=== PATIENT | male | born 1975 | race Caucasian/White ===

== ENCOUNTER 2017-10-31 18:53 | Emergency (ER) | payer OTHER ==
[2017-10-31 20:28] LABS: BASO # 0.1 10^3/uL (0.0-0.2); BASO % 0.4 % (0.0-1.0); EOS # 0.1 10^3/uL (0.0-0.50); EOS % 0.9 % (0.0-3.0); HEMATOCRIT 39.8 % (42.0-52.0); HEMOGLOBIN 13.5 g/dl (14.0-18.0); IMMATURE GRANULOCYTE % 1.3 % (0-3.0); LYMPH # 1.7 10^3/uL (1.5-4.5); MEAN CORPUSCULAR HEMOGLOBIN 31.6 pg (27.0-33.0); MEAN CORPUSCULAR HGB CONC 33.9 g/dl (32.0-36.5); MEAN CORPUSCULAR VOLUME 93.2 fl (80.0-96.0); MONO # 1.3 10^3/uL (0.0-0.8); MONO % 9.3 % (0.0-5.0); NEUTROPHILS # 10.7 10^3/uL (1.8-7.7); NEUTROPHILS % 76.1 % (36.0-66.0); PLATELET COUNT, AUTOMATED 251 10^3/uL (150-450); RED BLOOD COUNT 4.27 10^6/uL (4.30-6.10); RED CELL DISTRIBUTION WIDTH 13.1 % (11.5-14.5); WHITE BLOOD COUNT 14.1 10^3/uL (4.0-10.0)
[2017-10-31 20:56] LABS: INR 0.88
[2017-10-31 20:57] LABS: ANION GAP 11 MEQ/L (8-16); BLOOD UREA NITROGEN 48 MG/DL (7-18); CALCIUM LEVEL 9.1 MG/DL (8.5-10.1); CARBON DIOXIDE LEVEL 24 MEQ/L (21-32); CHLORIDE LEVEL 103 MEQ/L (98-107); CREATININE FOR GFR 1.29 MG/DL (0.70-1.30); GLOMERULAR FILTRATION RATE > 60.0 (>60); GLUCOSE, FASTING 278 MG/DL (70-100); PARTIAL THROMBOPLASTIN TIME 26.8 SECONDS (26.8-37.9); POTASSIUM SERUM 3.9 MEQ/L (3.5-5.1); SODIUM LEVEL 138 MEQ/L (136-145)
[2017-10-31] MEDS: CLINDAMYCIN 150 MG CAP PO (22:15)
[2017-10-31] MEDS: NORCO 5/325MG TABLET (BULK FOR ED) PO (22:15)
== END 2017-10-31 23:13 | disposition home or self-care (01) ==
LOC: M ED 18:53
DX: I73.9 Peripheral vascular disease, unspecified (principal); I83.11 Varicose veins of right lower extremity with inflammation; E11.9 Type 2 diabetes mellitus without complications; J45.909 Unspecified asthma, uncomplicated; I11.0 Hypertensive heart disease with heart failure; E78.9 Disorder of lipoprotein metabolism, unspecified; I50.9 Heart failure, unspecified; F17.210 Nicotine dependence, cigarettes, uncomplicated; Z79.899 Other long term (current) drug therapy; Z79.82 Long term (current) use of aspirin; Z79.4 Long term (current) use of insulin
CPT/HCPCS: 73610

== ENCOUNTER 2017-11-08 02:16 | Emergency (ER) | payer OTHER ==
[2017-11-08 03:07] LABS: BASO # 0.1 10^3/uL (0.0-0.2); BASO % 0.5 % (0.0-1.0); EOS # 0.1 10^3/uL (0.0-0.50); EOS % 0.8 % (0.0-3.0); HEMATOCRIT 37.3 % (42.0-52.0); HEMOGLOBIN 12.9 g/dl (14.0-18.0); IMMATURE GRANULOCYTE % 1.2 % (0-3.0); LYMPH # 1.6 10^3/uL (1.5-4.5); LYMPH % 10.6 % (24.0-44.0); MEAN CORPUSCULAR HEMOGLOBIN 32.4 pg (27.0-33.0); MEAN CORPUSCULAR HGB CONC 34.6 g/dl (32.0-36.5); MEAN CORPUSCULAR VOLUME 93.7 fl (80.0-96.0); MONO # 1.4 10^3/uL (0.0-0.8); MONO % 8.7 % (0.0-5.0); NEUTROPHILS # 12.2 10^3/uL (1.8-7.7); NEUTROPHILS % 78.2 % (36.0-66.0); PLATELET COUNT, AUTOMATED 259 10^3/uL (150-450); RED BLOOD COUNT 3.98 10^6/uL (4.30-6.10); RED CELL DISTRIBUTION WIDTH 13.1 % (11.5-14.5); WHITE BLOOD COUNT 15.5 10^3/uL (4.0-10.0)
[2017-11-08 03:31] LABS: ANION GAP 8 MEQ/L (8-16); BLOOD UREA NITROGEN 45 MG/DL (7-18); CALCIUM LEVEL 8.6 MG/DL (8.5-10.1); CARBON DIOXIDE LEVEL 26 MEQ/L (21-32); CHLORIDE LEVEL 101 MEQ/L (98-107); CREATININE FOR GFR 1.22 MG/DL (0.70-1.30); GLOMERULAR FILTRATION RATE > 60.0 (>60); GLUCOSE, FASTING 174 MG/DL (70-100); POTASSIUM SERUM 4.6 MEQ/L (3.5-5.1); SODIUM LEVEL 135 MEQ/L (136-145)
[2017-11-08] MEDS: NAPROXEN 250 MG TAB PO (05:03)
[2017-11-08] MEDS: MORPHINE 4 MG/ML 1ML VIAL (J2270) IV (05:03)
[2017-11-08] MEDS: ONDANSETRON 4MG/2ML VIAL (J2405) IV (05:04)
[2017-11-08] MEDS: PERCOCET 5MG/325MG TAB PO (06:37)
== END 2017-11-08 06:39 | disposition home or self-care (01) ==
LOC: M ED 02:16
DX: M10.9 Gout, unspecified (principal); E11.9 Type 2 diabetes mellitus without complications; F17.210 Nicotine dependence, cigarettes, uncomplicated; Z79.4 Long term (current) use of insulin; Z79.2 Long term (current) use of antibiotics; Z79.82 Long term (current) use of aspirin
CPT/HCPCS: J2270

== ENCOUNTER 2018-11-23 19:42 | Inpatient (IN) | payer OTHER ==
[~2018-11-23] VITALS: Ht 172.7 cm; Wt 155.2 kg
[~2018-11-23 19:42] MED LIST: ALBU17IN INH; AMLO5TAB6 PO; ASPI81TAEC PO; ATOR1TAB19 PO; BUME1TAB29 PO; CARV12.5 PO; CEFD1CAP8 PO; CEFD300CAP FT; CETI10TA PO; CYMB60CA3 PO; DOCU100C16 PO; DOCU100T8 PO; FISH1000 PO; FURO80TA2 PO; GABA-843 PO; INSUHUMDS SC; INSULANT SC; KEFL500C17 PO; KLOR10TA76 PO; LASI80TA3 PO; LOSA100T50 PO; LOSA50TA88 PO; META28.35 PO; METO25TA PO; MIRA3350 PO; MULT1CHW39 PO; NAPR-50 PO; NORCOTAB PO; PERC5TAB12 PO; SPIR50TA4 PO; SYMB80INH INH; VITA100066 PO; VITA20008 PO; VITA50005 PO
[2018-11-23] MEDS ORDERED: GEMF600T5 PO (19:58)
[2018-11-23] MEDS ORDERED: METO200T28 PO (19:58)
[2018-11-23] MEDS ORDERED: GABA-1171 PO (19:58)
[2018-11-23] MEDS ORDERED: COLC1TAB13 PO (19:58)
[2018-11-23] MEDS ORDERED: ALLO10TA PO (19:58)
[2018-11-23] MEDS ORDERED: PANT20TA2 PO (20:27)
[2018-11-23] MEDS: HumaLOG INSULIN (NovoLOG) PER UNIT SC SCH (21:00)
[2018-11-23] MEDS ORDERED: ACETAMINOPHEN 325 MG TAB PO ONE (21:30)
[2018-11-23 21:42] LABS: BASO # 0.1 10^3/uL (0.0-0.2); BASO % 0.8 % (0.0-1.0); EOS # 0.5 10^3/uL (0.0-0.50); EOS % 3.7 % (0.0-3.0); HEMATOCRIT 42.2 % (42.0-52.0); HEMOGLOBIN 14.1 g/dl (13.5-17.5); LYMPH # 1.2 10^3/uL (1.5-4.5); LYMPH % 8.4 % (24.0-44.0); MEAN CORPUSCULAR HEMOGLOBIN 31.8 pg (27.0-33.0); MEAN CORPUSCULAR HGB CONC 33.4 g/dl (32.0-36.5); MONO % 7.3 % (0.0-5.0); NEUTROPHILS # 11.1 10^3/uL (1.8-7.7); NEUTROPHILS % 78.6 % (36.0-66.0); PLATELET COUNT, AUTOMATED 324 10^3/uL (150-450); RED BLOOD COUNT 4.44 10^6/uL (4.30-6.10); WHITE BLOOD COUNT 14.2 10^3/uL (4.0-10.0)
[2018-11-23] MEDS ORDERED: cefTRIAXone SOD 2 GM in D5W MINI-BAG PLUS 50 ML IV ONE (21:45)
[2018-11-23 21:46] LABS: INR 0.92; PROTHROMBIN TIME 12.4 SECONDS (12.1-14.4)
[2018-11-23 21:59] LABS: ABG BASE EXCESS -2.6 (-2.0-2.0); ABG HCO3 21.9 MEQ/L (22.0-26.0); ABG O2 SATURATION 86.5 % (95.0-99.0); ABG PARTIAL PRESSURE CO2 37.2 mmHg (35.0-45.0); ABG pH (ARTERIAL) 7.387 UNITS (7.350-7.450)
[2018-11-23] MEDS: NS 1,000 ML IV SCH (22:01)
[2018-11-23 22:19] LABS: ALBUMIN 3.3 GM/DL (3.2-5.2); ALT/SGPT 45 U/L (12-78); AMYLASE 40 U/L (25-115); BILIRUBIN,DIRECT < 0.1 MG/DL (0.0-0.2); BILIRUBIN,TOTAL 0.3 MG/DL (0.2-1.0); BLOOD UREA NITROGEN 64 MG/DL (7-18); C REACTIVE PROTEIN QUANTITATIV 0.61 MG/DL (0.00-0.30); CALCIUM LEVEL 8.7 MG/DL (8.5-10.1); CARBON DIOXIDE LEVEL 22 MEQ/L (21-32); CHLORIDE LEVEL 104 MEQ/L (98-107); CPK CREATINE PHOSPHOKINASE 83 U/L (39-308); GLOMERULAR FILTRATION RATE 43.9 (>60); GLUCOSE, FASTING 291 MG/DL (70-100); MB/CK RELATIVE INDEX 2.53 (< OR =4); POTASSIUM SERUM 3.9 MEQ/L (3.5-5.1); SODIUM LEVEL 136 MEQ/L (136-145); TOTAL PROTEIN 6.9 GM/DL (6.4-8.2); TROPONIN I < 0.02 NG/ML (< 0.10)
[2018-11-23 22:22] LABS: INFLUENZA A AMPLIFICATION NEGATIVE (NEGATIVE); INFLUENZA B AMPLIFICATION NEGATIVE (NEGATIVE)
--- NOTE | 2018-11-23 23:16 | REPVR ---
EXAM: US Duplex Bilateral Lower Extremity Veins EXAM DATE/TIME: 11/23/2018 10:38 PM CLINICAL HISTORY: 43 years old, male; Signs and symptoms; Edema, localized; Lower extremity, bilateral TECHNIQUE: Real-time duplex ultrasound of the Bilateral Lower Extremities with 2-D sandhu scale, color Doppler flow and spectral waveform analysis. Complete exam focused on the bilateral lower extremity veins. COMPARISON: US Duplex, Ext LOWER veins, bilat 11/08/2017 3:21 AM FINDINGS: Right deep veins: Unremarkable. The common femoral, femoral and popliteal veins are patent without thrombus. Normal Doppler waveforms. Normal compressibility and/or augmentation response. Right superficial veins: Saphenofemoral junction is patent without thrombus. Left deep veins: Unremarkable. The common femoral, femoral and popliteal veins are patent without thrombus. Normal Doppler waveforms. Normal compressibility and/or augmentation response. Left superficial veins: Saphenofemoral junction is patent without thrombus. Soft tissues: Unremarkable. IMPRESSION: No sonographic evidence of deep vein thrombosis. Electronically signed by: Sheldon Panchal On 11/23/2018 23:15:53 PM
[2018-11-24] MEDS ORDERED: ACETAMINOPHEN TAB 650MG DOSE (2X325MG) PO PRN
[2018-11-24] MEDS ORDERED: GLUCAGON FOR INJ 1 MG VIAL (J1610) SC PRN
[2018-11-24] MEDS ORDERED: GLUCOSE 4 GM CHEW TABLET PO PRN
[2018-11-24] MEDS ORDERED: DEXTROSE 50% 50 ML SYRINGE IV PRN
[2018-11-24] MEDS ORDERED: ZYLO300T6 PO (00:12)
[2018-11-24] MEDS ORDERED: KLOR10TA76 PO (00:12)
[2018-11-24] MEDS ORDERED: FISH7.5C PO (00:12)
[2018-11-24] MEDS ORDERED: DULO1CAP2 PO (00:12)
[2018-11-24] MEDS ORDERED: TOUJ1.2I SC ×2 (00:14)
[2018-11-24] MEDS ORDERED: VITA1CAP25 PO (00:16)
[2018-11-24] MEDS ORDERED: ROSU20TA4 PO (00:16)
[2018-11-24] MEDS ORDERED: HumaLOG INSULIN (NovoLOG) PER UNIT SC SCH (01:15)
[2018-11-24] MEDS ORDERED: CETIRIZINE (ZyrTEC) 10 MG TAB PO PRN (01:15)
[2018-11-24] MEDS: NS 1,000 ML IV SCH (01:30)
[2018-11-24] MEDS: VITAMIN D 1,000 INTERNATIONAL UNITS TABLET PO SCH ×2 (01:56→20:29)
[2018-11-24] MEDS: SPIRONOLACTONE 50 MG TAB PO SCH ×3 (01:56→20:30)
[2018-11-24] MEDS: GABAPENTIN 100 MG CAP PO SCH ×2 (01:57→20:29)
[2018-11-24] MEDS: COLCHICINE 0.6 MG TAB PO SCH ×2 (01:57→20:29)
[2018-11-24] MEDS: DULoxetine 30 MG CAP (CYMBALTA) PO SCH ×2 (01:57→20:27)
[2018-11-24] MEDS: LOSARTAN 50 MG TAB PO SCH ×2 (01:58→20:28)
[2018-11-24] MEDS: ASPIRIN 81 MG ENTERIC TAB PO SCH ×2 (01:58→20:28)
[2018-11-24] MEDS: GEMFIBROZIL 600 MG TAB PO SCH ×3 (02:00→20:27)
[2018-11-24] MEDS ORDERED: BUMETANIDE 1 MG TAB PO ONE (02:45)
[2018-11-24] MEDS: ROSUVASTATIN 10 MG TAB (CRESTOR) PO SCH ×2 (02:50→20:28)
[2018-11-24] MEDS: ALLOPURINOL 300 MG TAB PO SCH ×3 (02:51→20:28)
[2018-11-24] MEDS ORDERED: [UNRECOGNIZED DRUG - REMARK] XX SCH (03:30)
--- NOTE | 2018-11-24 04:03 | REP ---
Clinical: Sepsis/shock . Comparison: 03/19/2016 . Findings: The mediastinum and cardiac silhouette are stable and within normal limits for portable technique. The lung campoverde are clear without acute consolidation, effusion, or pneumothorax. Skeletal structures are intact. Impression: No acute cardiopulmonary process appreciated. Electronically Signed by Lawrence Torres MD 11/24/2018 03:55 A
[2018-11-24 05:22] LABS: HEMATOCRIT 42.2 % (42.0-52.0); HEMOGLOBIN 14.1 g/dl (13.5-17.5); MEAN CORPUSCULAR HGB CONC 33.4 g/dl (32.0-36.5); MEAN CORPUSCULAR VOLUME 95.7 fl (80.0-96.0); PLATELET COUNT, AUTOMATED 306 10^3/uL (150-450); RED BLOOD COUNT 4.41 10^6/uL (4.30-6.10); WHITE BLOOD COUNT 12.9 10^3/uL (4.0-10.0)
[2018-11-24 05:29] LABS: CALCIUM LEVEL 9.2 MG/DL (8.5-10.1); CREATININE FOR GFR 1.47 MG/DL (0.70-1.30); GLOMERULAR FILTRATION RATE 55.4 (>60); POTASSIUM SERUM 3.4 MEQ/L (3.5-5.1)
[2018-11-24] MEDS ORDERED: POTASSIUM CHLORIDE 10 MEQ SR TABLET PO ONE (05:45)
[2018-11-24] MEDS: HEPARIN SOD (PORCINE) 5000 UNITS/ML VIAL SC SCH ×3 (05:48→20:27)
[2018-11-24] MEDS: AMPICILLIN SOD/SULBACTAM SOD 3 GM in D5W MINI-BAG PLUS 100 ML IV SCH ×3 (05:48→23:00)
[2018-11-24] MEDS: HumaLOG INSULIN (NovoLOG) PER UNIT SC SCH ×5 (07:17→20:30)
[2018-11-24] MEDS: OMEGA-3 1000MG CAPSULE PO SCH ×2 (08:15→20:27)
[2018-11-24] MEDS: PANTOPRAZOLE 20 MG TAB PO SCH (08:16)
[2018-11-24] MEDS: METOPROLOL SUCC (TopROL XL) 100MG *XL* TAB PO SCH (08:16)
[2018-11-24] MEDS: metOLazone 2.5 MG TAB PO SCH (08:16)
[2018-11-24] MEDS: SENOKOT S TAB PO SCH ×2 (08:16→20:27)
[2018-11-24] MEDS: DOCUSATE SODIUM 100 MG CAP PO SCH ×2 (08:16→20:29)
[2018-11-24] MEDS: BUMETANIDE 1 MG TAB PO SCH ×2 (08:16→20:29)
[2018-11-24] MEDS: POTASSIUM CHLORIDE 10 MEQ SR TABLET PO SCH ×2 (08:17→20:29)
[2018-11-24 14:19] VITALS: BP 165/79
--- NOTE | 2018-11-24 16:10 | IPNPDOC ---
Subjective Date Seen The patient was seen on 11/24/18. Subjective Chief Complaint/HPI Patient seen and examined at bedside. Reports improvement of bilateral lower extremity cellulitis. Objective Physical Examination General Exam: Positive: Alert, Cooperative, No Acute Distress, Other (morbidly obese) ENT Exam: Positive: Atraumatic, Mucous membr. moist/pink Neck Exam: Negative: JVD Chest Exam: Positive: Clear to auscultation, Normal air movement Heart Exam: Positive: Rate Normal, Normal S1, Normal S2 Abdomen Exam: Positive: Soft; Negative: Tenderness Extremity Exam: Positive: Other (Right lower extremity noted to have erythematous changes consistent with cellulitis. No superficial open wounds or purulent drainage noted. 1-2+ pitting edema noted) Psych Exam: Positive: Oriented x 3 Assessment /Plan Plan/VTE VTE Prophylaxis Ordered?: Yes Plan Right Lower Extremity Cellulitis Superimposed on Chronic Venous Stasis Changes Blood Cultures pending Cont Unasyn WBC downtrending, patient afebrile Wound Care ordered We will cont to trend CRP markers Diabetes mellitus Continue insulin as ordered Patient managing his own insulin pump History of diastolic congestive heart failure Continue metolazone, Bumex, spironolactone as ordered 2-D echocardiogram ordered Chronic kidney disease stage III Serum Cr Baseline 1.2-1.3 Serum Cr 1.47 this AM We will continue to monitor Dyslipidemia Continue statin, gemfibrozil Hypertension Continue losartan GERD Continue PPI Peripheral neuropathy Continue gabapentin, duloxetine Gout Continue colchicine, allopurinol Morbid obesity Complicating medical care Discussed the need for the patient to lose weight DVT prophylaxis Heparin subcutaneous VS, I&O, 24H, Nadira Vital Signs/I&O Vital Signs Date Time Temp Pulse Resp B/P (MAP) Pulse Ox O2 Delivery O2 Flow Rate FiO2 11/24/18 14:19 97.6 80 18 165/79 (107) 92 11/24/18 05:52 Room Air I&O- Last 24 Hours up to 6 AM 11/24/18 06:00 Output Total 650 ml Balance -650 ml Laboratory Data 24H LABS Laboratory Tests 2 11/23/18 21:30: Immature Granulocyte % (Auto) 1.2, White Blood Count 14.2H, Red Blood Count 4.44, Hemoglobin 14.1, Hematocrit 42.2, Mean Corpuscular Volume 95.0, Mean Corpuscular Hemoglobin 31.8, Mean Corpuscular Hemoglobin Concent 33.4, Red Cell Distribution Width 13.3, Platelet Count 324, Neutrophils (%) (Auto) 78.6H, Lymphocytes (%) (Auto) 8.4L, Monocytes (%) (Auto) 7.3H, Eosinophils (%) (Auto) 3.7H, Basophils (%) (Auto) 0.8, Neutrophils # (Auto) 11.1H, Lymphocytes # (Auto) 1.2L, Monocytes # (Auto) 1.0H, Eosinophils # (Auto) 0.5, Basophils # (Auto) 0.1, Nucleated Red Blood Cells % (auto) 0.0, Prothrombin Time 12.4, Prothromb Time International Ratio 0.92, Blood Gas Bicarbonate Standard 22.0, Arterial Blood pH 7.387, Arterial Blood Partial Pressure CO2 37.2, Arterial Blood Partial Pressure O2 51.0L, Arterial Blood Total CO2 23.0, Arterial Blood HCO3 21.9L, Arterial B lood Base Excess -2.6L, Arterial Blood Oxygen Saturation 86.5L, Anion Gap 10, Glomerular Filtration Rate 43.9L, Lactic Acid Level 0.9, Calcium Level 8.7, Aspartate Amino Transf (AST/SGOT) 23, Alanine Aminotransferase (ALT/SGPT) 45, Alkaline Phosphatase 128H, Total Bilirubin 0.3, Direct Bilirubin < 0.1, Total Creatine Kinase 83, Creatine Kinase MB 2.0, Creatine Kinase MB Relative Index 2.53, Troponin I < 0.02, C-Reactive Protein, Quantitative 0.61H, Total Protein 6.9, Albumin 3.3, Albumin/Globulin Ratio 0.92L, Amylase Level 40 11/23/18 21:41: Influenza Type A (RT-PCR) NEGATIVE, Influenza Type B (RT-PCR) NEGATIVE 11/24/18 00:21: Bedside Glucose (Misc Panel) 330H 11/24/18 04:55: Nucleated Red Blood Cells % (auto) 0.0, Anion Gap 8, Glomerular Filtration Rate 55.4L, Calcium Level 9.2, Blood Urea Nitrogen 64H, Creatinine 1.47H, Sodium Level 142, Potassium Level 3.4L, Chloride Level 108H, Carbon Dioxide Level 26 11/24/18 07:14: Bedside Glucose (Misc Panel) 83 11/24/18 11:29: Bedside Glucose (Misc Panel) 143H CBC/BMP Laboratory Tests 3/10/19 21:30 Red Blood Count 4.44, Mean Corpuscular Volume 95.0, Mean Corpuscular Hemoglobin 31.8, Mean Corpuscular Hemoglobin Concent 33.4, Red Cell Distribution Width 13.3, Neutrophils (%) (Auto) 78.6 H, Lymphocytes (%) (Auto) 8.4 L, Monocytes (%) (Auto) 7.3 H, Eosinophils (%) (Auto) 3.7 H, Basophils (%) (Auto) 0.8, Neutrophils # (Auto) 11.1 H, Lymphocytes # (Auto) 1.2 L, Monocytes # (Auto) 1.0 H, Eosinophils # (Auto) 0.5, Basophils # (Auto) 0.1 11/24/18 04:55 Red Blood Count 4.41, Mean Corpuscular Volume 95.7, Mean Corpuscular Hemoglobin 32.0, Mean Corpuscular Hemoglobin Concent 33.4, Red Cell Distribution Width 13.4, Calcium Level 9.2 Microbiology Microbiology 11/23/18 Blood Culture, Received Pending 11/23/18 Blood Culture, Received Pending SIMON BAUTISTA MD Nov 24, 2018 16:10
[2018-11-24] MEDS: EUCERIN 120GM CREAM TOP SCH (20:30)
[2018-11-24] MEDS: LEVEMIR (INSULIN DETEMIR) 1 UNITS/0.01ML SC SCH (20:31)
[2018-11-24 21:26] VITALS: BP 176/87
--- NOTE | 2018-11-24 21:44 | ECGEPIP ---
Stationary ECG Study [facility] - ED Test Date: 2018-11-23 Pat Name: ZOHRA KEARNEY Department: Room: - Gender: M Detail Technician: ARTEM : [id number] Requested By: KAREEM POOL Order Number: [id number] Reading MD: Dino Ernandez Measurements Intervals [place] Rate: 81 P: 46 MD: 220 QRS: -38 QRSD: 104 T: 31 QT: 375 QTc: 436 Interpretive Statements SINUS RHYTHM WITH FIRST DEGREE AV BLOCK new since tracing done 03-19-16 MARKED LEFT AXIS DEVIATION PATTERN CONSISTENT WITH PULMONARY DISEASE Left ventricular hypertrophy by aVL criteria Electronically Signed On 11-24-2018 21:44:00 EDT by Dino Ernandez
[2018-11-25 05:30] VITALS: BP 170/93
[2018-11-25] MEDS: HEPARIN SOD (PORCINE) 5000 UNITS/ML VIAL SC SCH ×3 (06:29→21:30)
[2018-11-25] MEDS: AMPICILLIN SOD/SULBACTAM SOD 3 GM in D5W MINI-BAG PLUS 100 ML IV SCH ×3 (06:29→21:30)
[2018-11-25 07:27] LABS: C REACTIVE PROTEIN QUANTITATIV 0.77 MG/DL (0.00-0.30)
[2018-11-25] MEDS: HumaLOG INSULIN (NovoLOG) PER UNIT SC SCH ×9 (07:30→21:17)
[2018-11-25] MEDS: DOCUSATE SODIUM 100 MG CAP PO SCH ×2 (09:00→21:00)
[2018-11-25] MEDS: OMEGA-3 1000MG CAPSULE PO SCH ×2 (09:02→21:10)
[2018-11-25] MEDS: LEVEMIR (INSULIN DETEMIR) 1 UNITS/0.01ML SC SCH ×2 (09:02→21:19)
[2018-11-25] MEDS: metOLazone 2.5 MG TAB PO SCH (09:03)
[2018-11-25] MEDS: SPIRONOLACTONE 50 MG TAB PO SCH ×2 (09:03→21:12)
[2018-11-25] MEDS: BUMETANIDE 1 MG TAB PO SCH ×2 (09:03→21:11)
[2018-11-25] MEDS: ALLOPURINOL 300 MG TAB PO SCH ×2 (09:03→21:12)
[2018-11-25] MEDS: PANTOPRAZOLE 20 MG TAB PO SCH (09:03)
[2018-11-25] MEDS: GEMFIBROZIL 600 MG TAB PO SCH ×2 (09:03→21:12)
[2018-11-25] MEDS: POTASSIUM CHLORIDE 10 MEQ SR TABLET PO SCH ×2 (09:04→21:13)
[2018-11-25] MEDS: SENOKOT S TAB PO SCH ×2 (09:06→21:00)
[2018-11-25] MEDS: METOPROLOL SUCC (TopROL XL) 100MG *XL* TAB PO SCH (09:06)
[2018-11-25] MEDS: EUCERIN 120GM CREAM TOP SCH ×2 (09:07→21:20)
[2018-11-25 09:44] LABS: HEMATOCRIT 45.7 % (42.0-52.0); HEMOGLOBIN 14.7 g/dl (13.5-17.5); MEAN CORPUSCULAR HEMOGLOBIN 31.5 pg (27.0-33.0); MEAN CORPUSCULAR HGB CONC 32.2 g/dl (32.0-36.5); MEAN CORPUSCULAR VOLUME 97.9 fl (80.0-96.0); PLATELET COUNT, AUTOMATED 330 10^3/uL (150-450); RED BLOOD COUNT 4.67 10^6/uL (4.30-6.10); WHITE BLOOD COUNT 13.1 10^3/uL (4.0-10.0)
[2018-11-25 09:47] LABS: CALCIUM LEVEL 10.1 MG/DL (8.5-10.1); CREATININE FOR GFR 1.61 MG/DL (0.70-1.30); GLOMERULAR FILTRATION RATE 49.9 (>60); POTASSIUM SERUM 4.7 MEQ/L (3.5-5.1)
--- NOTE | 2018-11-25 11:03 | HPE ---
DATE OF ADMISSION: 11/23/2018 PRIMARY CARE PROVIDER: Dr. Calix ATTENDING PHYSICIAN: Dr. Urbano CHIEF COMPLAINT: Right lower extremity cellulitis. HISTORY OF PRESENT ILLNESS: The patient is a 43-year-old white male with multiple chronic medical conditions including type 1 diabetes, as well as morbid obesity who presented to the hospital for worsening infection of his right lower extremity. History is provided by himself. He states he has a chronic lower extremity edema and venostasis in the past. However, in the last week he said the has had swelling and redness in his right lower extremity which is getting worse. He denies fever, no chills. He was seen by his primary care physician in the clinic last week and he did not prescribe any antibiotics and recommended continuing to followup. He states the redness and swelling in the right lower extremity is getting worse over the weekend and he decided to come to the emergency room (ER) for further evaluation. In the ER his workup was not significant. He was given IV Ceftriaxone. Meanwhile the medicine service was called for admission. REVIEW OF SYSTEMS: Denies fever, no chills, no headache, blurry vision, no shortness of breath, no chest pain, no abdominal pain, no diarrhea. All other system review was negative. PAST MEDICAL HISTORY: 1. Type 1 diabetes. 2. Peripheral neuropathy. 3. Chronic kidney disease (CKD) stage III. 4. Chronic diastolic congestive heart failure (CHF). 5. Hypertension. 6. Dyslipidemia. 7. Asthma. 8. Obstructive sleep apnea on CPAP. 9. Morbid obesity. 10. Gout. PAST SURGICAL HISTORY: 1. Appendectomy. 2. Colonoscopy . ALLERGIES: No known drug allergies. SOCIAL HISTORY: Smokes cigarettes, two packs per day for about 30 years and this is ongoing. No alcohol abuse, no illicit drug abuse. He is and living with his girlfriend and he has four adult kids. He is on disability. He is a [employer]. FAMILY HISTORY: Reviewed but noncontributory. MEDICATIONS: - as needed - allopurinol 100 mg by mouth daily - aspirin 81 mg by mouth daily - Lipitor 20 mg by mouth daily - vitamin D3 2000 units by mouth daily - colchicine 0.6 mg by mouth daily - Colace 100 mg twice daily - Cymbalta 60 mg by mouth daily - Neurontin 100 mg by mouth three times a day - gemfibrozil 600 mg by mouth twice a day - insulin Lantus 50 units subcutaneus nightly - Losartan 100 mg by mouth daily - Metoprolol 200 mg by mouth daily - Protonix 20 mg by mouth daily - spironolactone 50 mg by mouth daily - Bumex 2 mg by mouth twice a day - multiple vitamins one daily PHYSICAL EXAMINATION: VITAL SIGNS: Temperature 97.9, heart rate 80, respiratory rate 20, blood pressure 146/73, Oxygen sat 93% on room air. GENERAL: He is awake, alert and oriented times three. He is not in acute distress. He is obese. HEENT: Atraumatic. Pupils equal, round, reactive to light. No jaundice. Extraocular muscles intact. Ears, nose, and throat normal. Mouth: Mucosa is dry. NECK: No jugular venous distention (JVD). No bruits. LUNGS: Clear. No wheezing, no crackles. HEART: S1, S2, regular, no murmur. ABDOMEN: Soft, positive bowel sounds, nontender. LOWER EXTREMITIES: There is a mild redness on the left lower extremity but more severe swelling and redness on the right lower extremity but no evidence of an abscess. SKIN: No rash. PSYCHIATRIC: No acute psychosis. NEUROLOGIC: Nonfocal. DIAGNOSTIC LABORATORY STUDIES: CBC and differential: WBC 14, hemoglobin 14, hematocrit 42, platelets 324. Sodium 136, potassium 3.9, chloride 104, bicarbonate 22, BUN 64, creatinine 1.8. Chest x-ray reviewed, no acute change. IMPRESSION: 1. Right lower extremity cellulitis. 2. Type 1 diabetes. 3. Hypertension. 4. Chronic kidney disease stage III. 5. Dyslipidemia. 6. Diastolic congestive heart failure. 7. Obstructive sleep apnea. 8. Morbid obesity. PLAN: The patient will be admitted to the Med-Surgical Floor. I will treat him with intravenous Unasyn and will follow cultures. Will continue his home medications. Dr. Urbano will followup in the morning.
[2018-11-25 14:00] VITALS: BP 170/74
--- NOTE | 2018-11-25 14:14 | IPNPDOC ---
Subjective Date Seen The patient was seen on 11/25/18. Subjective Chief Complaint/HPI Patient seen and examined at the bedside. No acute overnight events noted. Reports that his lower extremities appear to be improving somewhat. Objective Physical Examination General Exam: Positive: Alert, Cooperative, No Acute Distress, Other (morbidly obese) ENT Exam: Positive: Atraumatic, Mucous membr. moist/pink Neck Exam: Negative: JVD Chest Exam: Positive: Clear to auscultation, Normal air movement Heart Exam: Positive: Rate Normal, Normal S1, Normal S2 Abdomen Exam: Positive: Soft; Negative: Tenderness Extremity Exam: Positive: Other (right lower extremities noted to have erythematous changes consistent with cellulitis. No superficial open wounds or p urulent drainage noted. 1-2+ pitting edema noted) Psych Exam: Positive: Oriented x 3 Assessment /Plan Plan/VTE VTE Prophylaxis Ordered?: Yes Plan Right Lower Extremity Cellulitis Superimposed on Chronic Venous Stasis Changes Blood Cultures unrevealing thus far Cont Unasyn WBC remains elevated, patient afebrile Wound Care on board We will cont to trend CRP markers Diabetes mellitus Continue insulin as ordered Patient managing his own insulin pump History of diastolic congestive heart failure Continue metolazone, Bumex, spironolactone as ordered 2-D echocardiogram pending Chronic kidney disease stage III Serum Cr Baseline 1.2-1.3 Serum Cr 1.6 this AM We will continue to monitor Dyslipidemia Continue statin, gemfibrozil Hypertension Continue losartan GERD Continue PPI Peripheral neuropathy Continue gabapentin, duloxetine Gout Continue colchicine, allopurinol Morbid obesity Complicating medical care Discussed the need for the patient to lose weight DVT prophylaxis Heparin subcutaneous Dispo--pending clinical improvement. VS, I&O, 24H, Fishbone Vital Signs/I&O Vital Signs Date Time Temp Pulse Resp B/P (MAP) Pulse Ox O2 Delivery O2 Flow Rate FiO2 11/25/18 09:06 95 177/85 11/25/18 05:30 97.8 20 90 11/24/18 05:52 Room Air I&O- Last 24 Hours up to 6 AM 11/25/18 06:00 Intake Total 3080 ml Output Total 4050 ml Balance -970 ml Laboratory Data 24H LABS Laboratory Tests 2 11/24/18 16:35: Bedside Glucose (Misc Panel) 195H 11/24/18 19:58: Bedside Glucose (Misc Panel) 197H 11/25/18 06:33: Nucleated Red Blood Cells % (auto) 0.0 11/25/18 06:36: Anion Gap 6L, Glomerular Filtration Rate 49.9L, Blood Urea Nitrogen 61H, Creatinine 1.61H, Sodium Level 140, Potassium Level 4.7#, Chloride Level 105, Carbon Dioxide Level 29, Calcium Level 10.1, C-Reactive Protein, Quantitative 0.77H 11/25/18 06:54: Bedside Glucose (Misc Panel) 127H 11/25/18 11:28: Bedside Glucose (Misc Panel) 210H CBC/BMP Laboratory Tests 11/25/18 06:33 Red Blood Count 4.67, Mean Corpuscular Volume 97.9 H, Mean Corpuscular Hemoglobin 31.5, Mean Corpuscular Hemoglobin Concent 32.2, Red Cell Distribution Width 13.6 11/25/18 06:36 Calcium Level 10.1 Microbiology Microbiology 11/23/18 Blood Culture - Preliminary, Resulted No growth after 24 hours . All specim... 11/23/18 Blood Culture - Preliminary, Resulted No growth after 24 hours . All specim... SIMON BAUTISTA MD Nov 25, 2018 14:14
--- NOTE | 2018-11-25 19:36 | ECHO ---
DATE OF PROCEDURE: 11/25/2018 AGE: 43 GENDER: Male HEIGHT: 68 inches WEIGHT: 341 pounds BODY SURFACE AREA: 2.57 m2 PATIENT LOCATION: Inpatient, [address] [place] [address], room 4130 REFERRING PHYSICIAN: Dale Urbano MD INDICATION: Edema. 2-D MEASUREMENTS: RV: 3.9 cm LV: 5.5 cm Septum: 1.4 cm Posterior wall: 1.4 cm Aortic root: 3.9 cm LA: 4.3 cm LVEF: 65% DOPPLER MEASUREMENTS: AV: 1.5 m/s LVOT: 1.4 m/s LVOT diameter: 2.3 cm MV-E: 104, A: 102, EA ratio: 1 Early mitral deceleration time: 222 ms E prime: 8.5, A prime: 10, E/E prime ratio: 12.2 PCWP: 16.3 mmHg PV: 1.1 m/s Pulmonary artery acceleration time: 95 ms PASP: 42 mmHg IVC: 2.3 cm COMMENTS: Normal sinus rhythm without intraventricular conduction disturbance. Technically very difficult study in light of the patient's body habitus, but some diagnostically useful information was still obtained. M-mode and two-dimensional echocardiography was performed with pulsed, continuous wave, color flow and tissue Doppler studies. Moderate concentric left ventricle hypertrophy with normal wall motion. Mildly dilated left atrium with impaired left ventricle (LV) diastolic relaxation and current estimated mean left atrial pressure mildly increased. Right heart chamber sizes appeared to be upper limits of normal with normal wall motion and Doppler sign of at least moderate pulmonary hypertension. Mildly dilated inferior vena cava (IVC) with reduced respiratory collapse in keeping with an elevated central venous pressure. Valvular structures appeared and functioned normally. Mildly dilated aortic root. Unable to detect any intracardiac mass or pericardial effusion.
[2018-11-25 20:00] VITALS: BP 160/92
[2018-11-25] MEDS: VITAMIN D 1,000 INTERNATIONAL UNITS TABLET PO SCH (21:10)
[2018-11-25] MEDS: DULoxetine 30 MG CAP (CYMBALTA) PO SCH (21:11)
[2018-11-25] MEDS: ASPIRIN 81 MG ENTERIC TAB PO SCH (21:11)
[2018-11-25] MEDS: LOSARTAN 50 MG TAB PO SCH (21:12)
[2018-11-25] MEDS: GABAPENTIN 100 MG CAP PO SCH (21:13)
[2018-11-25] MEDS: ROSUVASTATIN 10 MG TAB (CRESTOR) PO SCH (21:13)
[2018-11-26 04:00] VITALS: BP 152/69
[2018-11-26] MEDS: HEPARIN SOD (PORCINE) 5000 UNITS/ML VIAL SC SCH (05:40)
[2018-11-26] MEDS: AMPICILLIN SOD/SULBACTAM SOD 3 GM in D5W MINI-BAG PLUS 100 ML IV SCH (05:40)
[2018-11-26 07:27] LABS: HEMATOCRIT 42.6 % (42.0-52.0); HEMOGLOBIN 14.3 g/dl (13.5-17.5); MEAN CORPUSCULAR HGB CONC 33.6 g/dl (32.0-36.5); MEAN CORPUSCULAR VOLUME 95.3 fl (80.0-96.0); PLATELET COUNT, AUTOMATED 318 10^3/uL (150-450); RED BLOOD COUNT 4.47 10^6/uL (4.30-6.10); WHITE BLOOD COUNT 12.2 10^3/uL (4.0-10.0)
[2018-11-26] MEDS: HumaLOG INSULIN (NovoLOG) PER UNIT SC SCH ×3 (07:30→11:22)
[2018-11-26 07:48] LABS: C REACTIVE PROTEIN QUANTITATIV 0.8 MG/DL (0.00-0.30); CALCIUM LEVEL 9.7 MG/DL (8.5-10.1); CREATININE FOR GFR 1.63 MG/DL (0.70-1.30); GLOMERULAR FILTRATION RATE 49.2 (>60)
[2018-11-26] MEDS: GEMFIBROZIL 600 MG TAB PO SCH (09:06)
[2018-11-26] MEDS: LEVEMIR (INSULIN DETEMIR) 1 UNITS/0.01ML SC SCH (09:06)
[2018-11-26] MEDS: metOLazone 2.5 MG TAB PO SCH (09:11)
[2018-11-26] MEDS: ALLOPURINOL 300 MG TAB PO SCH (09:11)
[2018-11-26 09:12] VITALS: BP 152/69
[2018-11-26] MEDS: SENOKOT S TAB PO SCH (09:12)
[2018-11-26] MEDS: DOCUSATE SODIUM 100 MG CAP PO SCH (09:12)
[2018-11-26] MEDS: OMEGA-3 1000MG CAPSULE PO SCH (09:12)
[2018-11-26] MEDS: METOPROLOL SUCC (TopROL XL) 100MG *XL* TAB PO SCH (09:12)
[2018-11-26] MEDS: BUMETANIDE 1 MG TAB PO SCH (09:12)
[2018-11-26] MEDS: SPIRONOLACTONE 50 MG TAB PO SCH (09:13)
[2018-11-26] MEDS: POTASSIUM CHLORIDE 10 MEQ SR TABLET PO SCH (09:13)
[2018-11-26] MEDS: PANTOPRAZOLE 20 MG TAB PO SCH (09:13)
[2018-11-26] MEDS: EUCERIN 120GM CREAM TOP SCH (09:13)
[2018-11-26] MEDS ORDERED: DOXY-350 PO (12:40)
[2018-11-26] MEDS ORDERED: AUGM875T28 PO (12:40)
--- NOTE | 2018-11-26 16:24 | DS.PDOC ---
Discharge Summary General Date of Admission Nov 23, 2018 at 23:43 Date of Discharge 11/26/18 Discharge Summary PROCEDURES PERFORMED DURING STAY: None. ADMITTING/DISCHARGE DIAGNOSES: Right Lower Extremity Cellulitis Superimposed on Chronic Venous Stasis Changes History of diabetes mellitus type 1 History of diastolic congestive heart failure Chronic kidney disease stage III Dyslipidemia Hypertension Morbid obesity Obstructive sleep apnea on CPAP COMPLICATIONS/CHIEF COMPLAINT: Cellulitis. HISTORY OF PRESENT ILLNESS: . 43-year-old male with past medical history of diabetes mellitus, peripheral neur opathy, chronic diastolic congestive heart failure, hypertension, dyslipidemia, asthma, chronic kidney disease stage III, obstructive sleep apnea on CPAP, and morbid obesity presents to the ER with a chief complaint of right lower extremity redness and tenderness. The patient states that he does have a history of chronic venous stasis in the right lower extremity but notes that he has had increased swelling and redness in the limb. He denies any fevers, chills, chest pain, palpitations, abdominal pain, or any nausea/vomiting/diarrhea. He was admitted to the hospitalist service for further evaluation and management. During hospitalization, the patient was started on IV antibiotic. The patient's right lower extremity cellulitis significantly improved with antibiotic therapy. In addition, the patient diuresed a net negative of over 4 L, and this also helped with improving his cellulitis. An ultrasound of the lower extremities was negative for DVT. The patient was counseled at length to remain adherent to a fluid restricted diet. At this time, the patient states that he is feeling much better and is eager to return home. The patient's antibiotic therapy has been transitioned to by mouth antibiotics. I advised the patient to follow-up with his primary care physician within 7 days. Lastly, the patient has been advised return to the ER for any acute emergency. DISCHARGE MEDICATIONS: Please see below. ALLERGIES: Please see below. PHYSICAL EXAMINATION ON DISCHARGE: VITAL SIGNS: Please see below. General Exam: Positive: Alert, Cooperative, No Acute Distress, Other (morbidly obese) ENT Exam: Positive: Atraumatic, Mucous membr. moist/pink Neck Exam: Negative: JVD Chest Exam: Positive: Clear to auscultation, Normal air movement Heart Exam: Positive: Rate Normal, Normal S1, Normal S2 Abdomen Exam: Positive: Soft; Negative: Tenderness Extremity Exam: Positive: Other (right lower extremities noted to have erythematous changes consistent with cellulitis--area of erythema and color appears to be improving. No superficial open wounds or purulent drainage noted. Trace pitting edema noted) Psych Exam: Positive: Oriented x 3 LABORATORY DATA: Please see below. IMAGING: EXAM: US Duplex Bilateral Lower Extremity Veins EXAM DATE/TIME: 11/23/2018 10:38 PM CLINICAL HISTORY: 43 years old, male; Signs and symptoms; Edema, localized; Lower extremity, bilateral TECHNIQUE: Real-time duplex ultrasound of the Bilateral Lower Extremities with 2-D sandhu scale, color Doppler flow and spectral waveform analysis. Complete exam focused on the bilateral lower extremity veins. COMPARISON: US Duplex, Ext LOWER veins, bilat 11/08/2017 3:21 AM FINDINGS: Right deep veins: Unremarkable. The common femoral, femoral and popliteal veins are patent without thrombus. Normal Doppler waveforms. Normal compressibility and/or augmentation response. Right superficial veins: Saphenofemoral junction is patent without thrombus. Left deep veins: Unremarkable. The common femoral, femoral and popliteal veins are patent without thrombus. Normal Doppler waveforms. Normal compressibility and/or augmentation response. Left superficial veins: Saphenofemoral junction is patent without thrombus. Soft tissues: Unremarkable. IMPRESSION: No sonographic evidence of deep vein thrombosis. Clinical: Sepsis/shock . Comparison: 03/19/2016 . Findings: The mediastinum and cardiac silhouette are stable and within normal limits for portable technique. The lung campoverde are clear without acute consolidation, effusion, or pneumothorax. Skeletal structures are intact. Impression: No acute cardiopulmonary process appreciated. PROGNOSIS: Fair ACTIVITY: As tolerated. DIET: Carb consistent, low-fat, low-cholesterol diet DISCHARGE PLAN: DISPOSITION: 01 Home, Self-Care. DISCHARGE INSTRUCTIONS: I advised the patient to follow-up with his primary care physician within 7 days. Lastly, the patient has been advised return to the ER for any acute emergency. DISCHARGE CONDITION: Stable. TIME SPENT ON DISCHARGE: Greater than 30 minutes. Vital Signs/I&Os Vital Signs Date Time Temp Pulse Resp B/P (MAP) Pulse Ox O2 Delivery O2 Flow Rate FiO2 11/26/18 09:12 74 152/69 11/26/18 04:00 99.3 20 93 11/24/18 05:52 Room Air I&O- Last 24 Hours up to 6 AM 11/26/18 06:00 Intake Total 2560 ml Output Total 5500 ml Balance -2940 ml Laboratory Data Labs 24H Laboratory Tests 2 11/25/18 16:29: Bedside Glucose (Misc Panel) 231H 11/25/18 19:26: Bedside Glucose (Misc Panel) 292H 11/26/18 07:05: Nucleated Red Blood Cells % (auto) 0.0, Anion Gap 8, Glomerular Filtration Rate 49.2L, Blood Urea Nitrogen 56H, Creatinine 1.63H, Sodium Level 138, Potassium L evel 4.0, Chloride Level 104, Carbon Dioxide Level 26, Calcium Level 9.7, C- Reactive Protein, Quantitative 0.80H 11/26/18 11:18: Bedside Glucose (Misc Panel) 215H CBC/BMP Laboratory Tests 11/26/18 07:05 Red Blood Count 4.47, Mean Corpuscular Volume 95.3, Mean Corpuscular Hemoglobin 32.0, Mean Corpuscular Hemoglobin Concent 33.6, Red Cell Distribution Width 13.6, Calcium Level 9.7 FSBS Laboratory Tests Test 11/25/18 16:29 11/25/18 19:26 11/26/18 11:18 Range/Units Bedside Glucose (Misc Panel) 231 292 215 70-105 MG/DL Microbiology Microbiology 11/23/18 Blood Culture - Preliminary, Resulted No Growth after 48 hours. All Specime... 11/23/18 Blood Culture - Preliminary, Resulted No Growth after 48 hours. All Specime... Discharge Medications Scheduled (Multivitamin Adult) 1 Chw Chw, 1 CHW PO DAILY, (Reported) (Toujeo Solostar) 300 Unit/Ml Inj, 100 UNIT SC QAM, (Reported) (Toujeo Solostar) 300 Unit/Ml Inj, 120 UNIT SC QPM, (Reported) Allopurinol (Zyloprim) 300 Mg Tab, 600 MG PO BID, (Reported) Amoxicillin/Clavulanate Potas (Augmentin 875-125 mg) 1 Tab Tab, 1 TAB PO BID Aspirin (Aspirin EC) 81 Mg Tabec, 81 MG PO QHS, (Reported) Bumetanide (Bumex) 2 Mg Tab, 2 MG PO BID, (Reported) Cholecalciferol (Vitamin D3) 2,000 Unit Tab, 4,000 UNIT PO QHS, (Reported) Cholecalciferol (Vitamin D3) 50,000 Unit Cap, 50,000 UNIT PO 1XWK, (Reported) TAKES ON SATURDAY QHS Colchicine (Colchicine) 0.6 Mg Tab, 0.6 MG PO QHS, (Reported) TAKES SATURDAY, SATURDAY, SATURDAY AND SATURDAY Docusate Sodium (Docusate Sodium) 100 Mg Cap, 100 MG PO BID, (Reported) Doxycycline Hyclate (Doxycycline) 100 Mg Cap, 1 CAP PO BID Duloxetine Hcl (Duloxetine HCl) 30 Mg Cap, 90 MG PO QHS, (Reported) Gabapentin (Gabapentin) 100 Mg Cap, 100 MG PO QHS, (Reported) Gemfibrozil (Gemfibrozil) 600 Mg Tab, 600 MG PO BID, (Reported) Insulin Human Lispro (Humalog) 1 Units/0.01 Ml Inj, 1 DOSE SC ASDIRECTED, (Reported) CONTINUOUS VIA PUMP Losartan Potassium (Losartan Potassium) 100 Mg Tab, 100 MG PO QHS, (Reported) Metolazone (Metolazone) 2.5 Mg Tab, 2.5 MG PO DAILY, (Reported) Metoprolol Succinate (Metoprolol Succinate ER) 200 Mg Tab, 200 MG PO DAILY, (Reported) [place] 3 Polyunsat Fatty Acids (Fish Oil 1000 mg) 1 Cap Cap, 2 CAP PO BID, (Reported) Pantoprazole Sodium (Pantoprazole Sodium) 20 Mg Tab, 20 MG PO DAILY, (Reported) Potassium Chloride (Klor-Con M10) 10 Meq Tabcr, 10 MEQ PO QAM, (Reported) Potassium Chloride (Klor-Con M10) 10 Meq Tabcr, 20 MEQ PO QPM, (Reported) Rosuvastatin Calcium (Rosuvastatin Calcium) 20 Mg Tab, 20 MG PO QHS, (Reported) Spironolactone (Spironolactone) 50 Mg Tab, 50 MG PO BID, (Reported) Scheduled PRN Cetirizine HCl (Cetirizine HCl) 10 Mg Tab, 10 MG PO QHS PRN for CONGESTION, (Reported) Allergies Coded Allergies: Lisinopril (Verified Allergy, Intermediate, 11/23/18) SIMON BAUTISTA MD Nov 26, 2018 16:24
== END 2018-11-26 13:42 | disposition home or self-care (01) | DRG 638 ==
LOC: M ED 19:42 → M ED INP 23:43 → M MS4PR 11-24 14:05
PROVIDERS: ADMIT Hospitalist; ATTEND Internal Medicine
DX: E10.628 Type 1 diabetes mellitus with other skin complications (principal); I13.0 Hypertensive heart and chronic kidney disease with heart failure and stage 1 through stage 4 chronic kidney disease, or unspecified chronic kidney disease; I50.32 Chronic diastolic (congestive) heart failure; L03.115 Cellulitis of right lower limb; E10.22 Type 1 diabetes mellitus with diabetic chronic kidney disease; E10.51 Type 1 diabetes mellitus with diabetic peripheral angiopathy without gangrene; N18.3 Chronic kidney disease, stage 3 (moderate); E66.01 Morbid (severe) obesity due to excess calories; E78.5 Hyperlipidemia, unspecified; J45.909 Unspecified asthma, uncomplicated; G47.33 Obstructive sleep apnea (adult) (pediatric); Z79.899 Other long term (current) drug therapy; Z88.8 Allergy status to other drugs, medicaments and biological substances; M10.9 Gout, unspecified; F17.210 Nicotine dependence, cigarettes, uncomplicated; K21.9 Gastro-esophageal reflux disease without esophagitis

== ENCOUNTER 2019-08-18 14:44 | Inpatient (IN) | payer OTHER ==
[~2019-08-18] VITALS: Ht 170.2 cm; Wt 156.3 kg
[~2019-08-18 14:44] MED LIST changes: +ALLO10TA PO; +ASPI81TA85 PO; +AUGM875T28 PO; +BUME2TAB3 PO; +CEFD300C41 FT; -CEFD300CAP FT; +CHOL100029 PO; +COLC1TAB13 PO; +DIPH50CA PO; +DOXY-350 PO; +DULO1CAP5 PO; +FENO145T13 PO; +FISH7.5C PO; +FLUOCRE TOP; +GABA-1171 PO; +GEMF600T5 PO; +HYDR-3715 PO; +METO200T28 PO; -MULT1CHW39 PO; +MULT200T7 PO; -NAPR-50 PO; +NAPR-837 PO; -NORCOTAB PO; +PANT20TA2 PO; +ROSU20TA5 PO; +TOUJ1.2I SC; +VITA1CAP25 PO; +ZYLO300T6 PO
[2019-08-18 16:13] LABS: BASO # 0.1 10^3/uL (0.0-0.2); BASO % 0.6 % (0.0-1.0); EOS # 0.2 10^3/uL (0.0-0.5); EOS % 1.5 % (0.0-3.0); HEMATOCRIT 44.1 % (42.0-52.0); HEMOGLOBIN 14.9 g/dl (13.5-17.5); LYMPH # 1.6 10^3/uL (1.5-5.0); LYMPH % 13.3 % (24.0-44.0); MEAN CORPUSCULAR HGB CONC 33.8 g/dl (32.0-36.5); MEAN CORPUSCULAR VOLUME 94.8 fl (80.0-96.0); MONO # 1.2 10^3/uL (0.0-0.8); NEUTROPHILS # 8.6 10^3/uL (1.5-8.5); NEUTROPHILS % 73.4 % (36.0-66.0); PLATELET COUNT, AUTOMATED 239 10^3/uL (150-450); RED BLOOD COUNT 4.65 10^6/uL (4.30-6.10); WHITE BLOOD COUNT 11.7 10^3/uL (4.0-10.0)
--- NOTE | 2019-08-18 16:48 | REP ---
Clinical: Cough and dyspnea . Comparison: 03/19/2016 . Technique: PA and lateral. Findings: The mediastinum and cardiac silhouette are normal. The lung campoverde are clear and without acute consolidation, effusion, or pneumothorax. The skeletal structures are intact and normal. Impression: 1. No acute cardiopulmonary process. Electronically Signed by Lawrence Torres MD 08/18/2019 04:40 P
[2019-08-18 16:54] LABS: ALBUMIN 3.1 GM/DL (3.2-5.2); ALT/SGPT 135 U/L (12-78); BILIRUBIN,DIRECT 0.1 MG/DL (0.0-0.2); BILIRUBIN,TOTAL 0.4 MG/DL (0.2-1.0); BLOOD UREA NITROGEN 64 MG/DL (7-18); CALCIUM LEVEL 11.3 MG/DL (8.5-10.1); CARBON DIOXIDE LEVEL 28 MEQ/L (21-32); CHLORIDE LEVEL 101 MEQ/L (98-107); CK-MB VALUE MASS 2.1 NG/ML (<3.6); CPK CREATINE PHOSPHOKINASE 78 U/L (39-308); CREATININE FOR GFR 1.86 MG/DL (0.70-1.30); GLUCOSE, FASTING 172 MG/DL (70-100); MB/CK RELATIVE INDEX 2.69 (< OR =4); NT-PRO BNP 127 PG/ML (<125); POTASSIUM SERUM 4.3 MEQ/L (3.5-5.1); SODIUM LEVEL 138 MEQ/L (136-145); TOTAL PROTEIN 6.9 GM/DL (6.4-8.2); TROPONIN I < 0.02 NG/ML (< 0.10)
[2019-08-18] MEDS ORDERED: FUROSEMIDE 40 MG/4 ML VIAL (J1940) IV ONE (17:00)
--- NOTE | 2019-08-18 17:20 | ECGEPIP ---
[facility] - ED Test Date: 2019-08-18 Pat Name: ZOHRA KEARNEY Department: Room: - Gender: Male [employer] Developer: RADHA : 1975 Requested By: NATALY Russo Order Number: [id number] Reading MD: Solange Aguilera Measurements Intervals [place] Rate: 79 P: 31 [place]: 224 QRS: -48 QRSD: 102 T: 50 QT: 354 QTc: 408 Interpretive Statements SINUS RHYTHM WITH FIRST DEGREE AV BLOCK LEFT ANTERIOR FASCICULAR BLOCK MINIMAL VOLTAGE CRITERIA FOR LVH, CONSIDER NORMAL VARIANT SIMILAR 11/23/18 Electronically Signed on 08-18-2019 17:19:44 EST by Solange Aguilera
[2019-08-18] MEDS ORDERED: VITA100054 PO (17:56)
[2019-08-18] MEDS ORDERED: GABA-843 PO (17:56)
[2019-08-18] MEDS ORDERED: diphenhydrAMINE 50 MG CAP PO PRN (18:15)
[2019-08-18] MEDS ORDERED: DEXTROSE 50% 50 ML SYRINGE IV PRN (18:15)
[2019-08-18] MEDS ORDERED: GLUCAGON FOR INJ 1 MG VIAL (J1610) SC PRN (18:15)
[2019-08-18] MEDS ORDERED: GLUCOSE 4 GM CHEW TABLET PO PRN (18:15)
[2019-08-18] MEDS ORDERED: LEVEMIR (INSULIN DETEMIR) 1 UNITS/0.01ML SC SCH (21:00)
[2019-08-18] MEDS ORDERED: LOSARTAN 50 MG TAB PO SCH (21:00)
[2019-08-18] MEDS ORDERED: HumaLOG INSULIN (NovoLOG) PER UNIT SC SCH (21:00)
[2019-08-18 21:27] VITALS: BP 123/80
[2019-08-18] MEDS: DULoxetine 30 MG CAP (CYMBALTA) PO SCH (21:52)
[2019-08-18] MEDS: ASPIRIN 81 MG ENTERIC TAB PO SCH (21:52)
[2019-08-18] MEDS: SPIRONOLACTONE 50 MG TAB PO SCH (21:52)
[2019-08-18] MEDS: ALLOPURINOL 300 MG TAB PO SCH (21:52)
[2019-08-18] MEDS: GABAPENTIN 300 MG CAP PO SCH (21:53)
[2019-08-18] MEDS: DOCUSATE SODIUM 100 MG CAP PO SCH (21:53)
[2019-08-18] MEDS: HEPARIN SOD (PORCINE) 5000 UNITS/ML VIAL SC SCH (21:55)
[2019-08-19] MEDS: FUROSEMIDE 40 MG/4 ML VIAL (J1940) IV SCH ×4 (00:10→18:02)
[2019-08-19 04:00] VITALS: BP 127/75
--- NOTE | 2019-08-19 06:58 | HPEPDOC ---
General Date of Admission 08/18/19 Date of Service: Aug 18, 2019 Chief Complaint The patient is a 44-year-old male admitted with a reason for visit of Fluid Retention. Source: Patient, RN/MD, Old records Exam Limitations: No limitations Severity: Moderate History of Present Illness 44 year old male with PMH of Diabetes mellitus, peripheral neuropathy, chronic diastolic congestive heart failure, hypertension, dyslipidemia, asthma, chronic kidney disease stage III, obstructive sleep apnea on CPAP, morbid obesity, gout presented to the ED from PMD's Office for excessive fluid retention and need for IV lasix. In the ED he was found to have fluid overload. CXR showed chronic changes. Pateint was admited for Diastolic CHF exacerbation. Pateint said that his weigher operator at the [facility] had increased the bumax to 4mg and 4 mg about 3 weeks ago and had instructed him to go down the dose to again 2 mg and 2 mg as soon as possible when he sees the swelling coming down otherwise he will hurt his kidneys more. Pateint noticed that the evening dose of the bumax was not having much results so he self decided to go down on the evening dose from 4 mg to 2 mg as he was afraid his kidneys will get bad if he continued the 4 and 4 for a long time. He was supposed to see his weigher operator tomorrow. Today he had gone to see his PMD who felt that the bumax was not working and his swelling has worsened with increased dyspnea on exertion so sent him over to the ED. Pateint did say he was having more difficulty than usaul in laying down and more difficulty in ambulation with some more than usual SOB. He denied Cough or phlegm. He was admitted for diastolic CHF exacerbation. Home Medications Scheduled Allopurinol (Zyloprim) 300 Mg Tab, 600 MG PO QHS, (Reported) Aspirin (Aspir 81) 81 Mg Tablet.dr, 81 MG PO QHS, (Reported) Bumetanide (Bumetanide) 2 Mg Tablet, 4 MG PO QAM, (Reported) Bumetanide (Bumetanide) 2 Mg Tablet, 2 MG PO QHS, (Reported) Cholecalciferol (Vitamin D3) (Vitamin D3) 1,000 Unit Capsule, 5,000 UNIT PO DAILY, (Reported) Colchicine (Colchicine) 0.6 Mg Tab, 0.6 MG PO PRN, (Reported) Docusate Sodium (Docusate Sodium) 100 Mg Cap, 100 MG PO BID, (Reported) Duloxetine Hcl (Duloxetine HCl) 30 Mg Cap, 90 MG PO QHS, (Reported) Fenofibrate Nanocrystallized (Fenofibrate) 145 Mg Tablet, 145 MG PO DAILY, (Reported) Gabapentin (Gabapentin) 300 Mg Capsule, 300 MG PO BID, (Reported) Insulin Glargine,Hum.rec.anlog (Toujeo Solostar) 300 Unit/Ml Inj, 110 UNIT SC QAM, (Reported) Insulin Glargine,Hum.rec.anlog (Toujeo Solostar) 300 Unit/Ml Inj, 120 UNIT SC QHS, (Reported) Insulin Human Lispro (Humalog) 1 Units/0.01 Ml Inj, 1 DOSE SC ASDIRECTED, (Reported) CONTINUOUS VIA PUMP Losartan Potassium (Losartan Potassium) 100 Mg Tab, 100 MG PO QHS, (Reported) Metolazone (Metolazone) 2.5 Mg Tab, 2.5 MG PO QAM, (Reported) 30 MINUTES BEFORE OTHER MEDS IN THE MORNING Metoprolol Succinate (Metoprolol Succinate) 200 Mg Tab, 200 MG PO DAILY, (Reported) Multivit-Minerals/Folic Acid (Adult Multivitamin Gummies) 1 Chw Chw, 1 TAB PO QHS, (Reported) [place]-3 Fatty Acids/Fish Oil (Fish Oil 1,000 mg Capsule) 1 Each Capsule, 4,000 MG PO BID, (Reported) Potassium Chloride (Klor-Con M10) 10 Meq Tabcr, 10 MEQ PO QAM, (Reported) Potassium Chloride (Klor-Con M10) 10 Meq Tabcr, 20 MEQ PO QPM, (Reported) Rosuvastatin Calcium (Rosuvastatin Calcium) 20 Mg Tab, 20 MG PO DAILY, (Reported) Spironolactone (Spironolactone) 50 Mg Tab, 50 MG PO BID, (Reported) Scheduled PRN Cetirizine HCl (Cetirizine HCl) 10 Mg Tab, 10 MG PO QHS PRN for CONGESTION, (Reported) Diphenhydramine HCl (Diphenhydramine HCl) 50 Mg Capsule, 50 MG PO PRN PRN for I TCHING, (Reported) Fluocinonide/Emollient Base (Fluocinonide-E 0.05% Cream) 15 Gm Cream..g., 1 APPLIC TOP DAILY PRN for DERMATITIS, (Reported) Allergies Coded Allergies: lisinopril (Verified Allergy, Unknown, 08/11/19) Past Medical History Medical History Diabetes mellitus, peripheral neuropathy, chronic diastolic congestive heart failure, hypertension, dyslipidemia, asthma, chronic kidney disease stage III, obstructive sleep apnea on CPAP, morbid obesity, gout, chronic venous stasis bilateral Surgical History appendectomy Family History Significant Family History: Cancer (father lung cancer), Diabetes (mother and father and grand parents), Other (obesity in grandparents, aunts) Social History * Smoker: current smoker Alcohol: Denies Drugs: denies A-FIB/CHADSVASC A-FIB History Current/History of A-Fib/PAF?: No Review of Systems Constitutional: Denies: Chills, Fever, Night Sweats Eyes: Denies: Pain, Vision change ENT: Denies: Head Aches, Ear Pain, Dysphagia Pulmonary: Denies: Dyspnea, Cough Cardiovascular: Reports: Orthopnea, Edema; Denies: Chest Pain, Palpitations, Paroxysmal Noc. Dyspnea, Lt Headedness Gastrointestinal: Denies: Nausea, Vomiting, Abdominal Pain, Diarrhea Genitourinary: Denies: Dysuria, Frequency, Incontinence, Retention Hematologic: Denies: Bruising, Bleeding Excessively Musculoskeletal: Reports: Back Pain, Joint Pain Neurological: Denies: Weakness, Numbness, Change in speech, Confusion Physical Examination General Exam: Positive: Alert, Cooperative, No Acute Distress, Other (morbidly obese) Eye Exam: Positive: PERRLA, Conjunctiva & lids normal, EOMI; Negative: Sclera icteric ENT Exam: Positive: Atraumatic, Mucous membr. moist/pink, Pharynx Normal Neck Exam: Positive: Supple; Negative: JVD, thyromegaly Chest Exam: Positive: Clear to auscultation, Normal air movement Heart Exam: Positive: Rate Normal, Regular Rhythm, Normal S1, Normal S2; Negative: Murmurs, Rubs Telemetry: Positive: No significant arrhythmia Abdomen Exam: Positive: Normal bowel sounds, Soft; Negative: Tenderness, Hepatospenomegaly Extremity Exam: Positive: Edema, Swelling Skin Exam: Positive: Other skin issue (chronic venous stasis changes.) Neuro Exam: Positive: Normal Speech, Strength at 5/5 X4 ext, Normal Tone Psych Exam: Positive: Mood NL, Memory Intact, Oriented x 3 Vital Signs Vital Signs Date Time Temp Pulse Resp B/P (MAP) Pulse Ox O2 Delivery O2 Flow Rate FiO2 08/18/19 15:17 08/18/19 14:45 97.9 88 18 99 Room Air Laboratory Data Labs 24H Laboratory Tests 2 08/18/19 16:04: Immature Granulocyte % (Auto) 1.2, Neutrophils (%) (Auto) 73.4H, Lymphocytes (%) (Auto) 13.3L, Monocytes (%) (Auto) 10.0H, Eosinophils (%) (Auto) 1.5, Basophils (%) (Auto) 0.6, Neutrophils # (Auto) 8.6H, Lymphocytes # (Auto) 1.6, Monocytes # (Auto) 1.2H, Eosinophils # (Auto) 0.2, Basophils # (Auto) 0.1, Nucleated Red Blood Cells % (auto) 0.0, Anion Gap 9, Glomerular Filtration Rate 42.0L, Calcium Level 11.3H, Total Bilirubin 0.4, Direct Bilirubin 0.1, Aspartate Amino Transf (AST/SGOT) 76H, Alanine Aminotransferase (ALT/SGPT) 135H, Alkaline Phosphatase 298H, Total Creatine Kinase 78, Creatine Kinase MB 2.1, Creatine Kinase MB Relative Index 2.69, Troponin I < 0.02, OD-Gls-O-Type Natriuretic Peptide 127H, Total Protein 6.9, Albumin 3.1L, Albumin/Globulin Ratio 0.82L, Thyroid Stimulating Hormone (TSH) 2.980 CBC/BMP Laboratory Tests 08/18/19 16:04 Assessment/Plan 44 year old male with PMH of Diabetes mellitus, peripheral neuropathy, chronic diastolic congestive heart failure, hypertension, dyslipidemia, asthma, chronic kidney disease stage III, obstructive sleep apnea on CPAP, morbid obesity, gout presented to the ED from PMD's Office for excessive fluid retention and need for IV lasix. He was admitted for Diastolic CHF exacerbation. Diastolic CHF exacerbation iv lasix, continue metolazone and spironolactone. intake and ouput, dietary fluid restriction daily weights. PILI on CKD stage 3 Due to diastolic CHF exacerbation will continue with diuresis and continue to monitor avoid NSAIDS, losartan. Contact weigher operator to get baseline renal functions in the last 3 months. Pulmonary hypertension continue diuretics. ARUN on CPAP May use own CPAP Diabetes Levemir and lispro as per sliding scale. FS AC and HS Hypertension Chronic continue with spironolactone, lasix, metolazone, metoprolol with reduced dose . Will hold ARB as present due to Pili on CKD would like to have adequete BP for IV lasix so will reduced other antihypertensives CAD (coronary artery disease) nonobstructive CAD continue stain, betablocker Morbid obesity complicating care. He has [facility] and [facility]. He has been told that [facility] never [facility] and procedures. So Patient is trying to get medicaid so that in the near future he can pursue a weight loss procedure. carb consistent diet. Asthma stable albuterol prn Diabetic neuropathy continue gabapentin and tylenol, cymbalta Hyperlipidemia continue statin, fenofibrate Gout allopurinol. Plan / VTE VTE Prophylaxis Ordered?: Yes MARÍA WATSON MD Aug 18, 2019 17:33
[2019-08-19] MEDS ORDERED: HumaLOG INSULIN (NovoLOG) PER UNIT SC SCH (07:30)
[2019-08-19 08:51] LABS: BASO # 0.1 10^3/uL (0.0-0.2); BASO % 0.7 % (0.0-1.0); EOS # 0.2 10^3/uL (0.0-0.5); EOS % 2.2 % (0.0-3.0); HEMATOCRIT 44.4 % (42.0-52.0); HEMOGLOBIN 14.6 g/dl (13.5-17.5); LYMPH # 1.7 10^3/uL (1.5-5.0); LYMPH % 15.9 % (24.0-44.0); MEAN CORPUSCULAR HEMOGLOBIN 31.4 pg (27.0-33.0); MEAN CORPUSCULAR HGB CONC 32.9 g/dl (32.0-36.5); MEAN CORPUSCULAR VOLUME 95.5 fl (80.0-96.0); MONO # 1.1 10^3/uL (0.0-0.8); MONO % 10.5 % (0.0-5.0); NEUTROPHILS # 7.4 10^3/uL (1.5-8.5); NEUTROPHILS % 68.9 % (36.0-66.0); PLATELET COUNT, AUTOMATED 229 10^3/uL (150-450); RED BLOOD COUNT 4.65 10^6/uL (4.30-6.10); WHITE BLOOD COUNT 10.7 10^3/uL (4.0-10.0)
[2019-08-19] MEDS ORDERED: METOPROLOL SUCC (TopROL XL) 100MG *XL* TAB PO SCH (09:00)
[2019-08-19] MEDS: SPIRONOLACTONE 50 MG TAB PO SCH ×2 (09:04→20:35)
[2019-08-19] MEDS: HEPARIN SOD (PORCINE) 5000 UNITS/ML VIAL SC SCH ×2 (09:04→20:34)
[2019-08-19] MEDS: DOCUSATE SODIUM 100 MG CAP PO SCH ×2 (09:05→20:35)
[2019-08-19] MEDS: FENOFIBRATE 145 MG TAB (TRICOR) PO SCH (09:05)
[2019-08-19] MEDS: ROSUVASTATIN 10 MG TAB (CRESTOR) PO SCH (09:05)
[2019-08-19] MEDS: METOPROLOL SUCC (TopROL XL) 100MG *XL* TAB PO SCH (09:05)
[2019-08-19] MEDS: GABAPENTIN 300 MG CAP PO SCH ×2 (09:06→20:35)
[2019-08-19 09:09] LABS: CALCIUM LEVEL 11.1 MG/DL (8.5-10.1); CREATININE FOR GFR 1.68 MG/DL (0.70-1.30); GLOMERULAR FILTRATION RATE 47.3 (>60); POTASSIUM SERUM 4.5 MEQ/L (3.5-5.1)
[2019-08-19 11:06] LABS: ALBUMIN 3.2 GM/DL (3.2-5.2); BILIRUBIN,DIRECT 0.1 MG/DL (0.0-0.2); BILIRUBIN,TOTAL 0.4 MG/DL (0.2-1.0); TOTAL PROTEIN 6.7 GM/DL (6.4-8.2)
[2019-08-19 11:16] LABS: PTH INTACT 8.7 PG/ML (18.5-88.0); TOTAL 25(OH) VITAMIN D 23.3 NG/ML (30.0-100.0)
[2019-08-19] MEDS ORDERED: metOLazone 2.5 MG TAB PO SCH (11:30)
[2019-08-19 14:00] VITALS: BP 132/75
--- NOTE | 2019-08-19 15:12 | IPNPDOC ---
Subjective Date Seen The patient was seen on 08/19/19. Subjective Chief Complaint/HPI Feels a little better today. Says having good urine output. No fever or chills, SOB is better. No abdominal pain or nausea or vomiting Objective Physical Examination General Exam: Positive: Alert, Cooperative, No Acute Distress, Other (morbidly obese) Eye Exam: Positive: PERRLA, Conjunctiva & lids normal, EOMI; Negative: Sclera icteric ENT Exam: Positive: Atraumatic, Mucous membr. moist/pink, Pharynx Normal Neck Exam: Positive: Supple; Negative: JVD, thyromegaly Chest Exam: Positive: Clear to auscultation, Normal air movement Heart Exam: Positive: Rate Normal, Regular Rhythm, Normal S1, Normal S2; Negative: Murmurs, Rubs Telemetry: Positive: No significant arrhythmia Abdomen Exam: Positive: Normal bowel sounds, Soft; Negative: Tenderness, Hepatospenomegaly Extremity Exam: Positive: Edema, Swelling Skin Exam: Positive: Other skin issue (chronic venous stasis changes.) Neuro Exam: Positive: Normal Speech, Strength at 5/5 X4 ext, Normal Tone Psych Exam: Positive: Mood NL, Memory Intact, Oriented x 3 Assessment /Plan Assessment 44 year old male with PMH of Diabetes mellitus, peripheral neuropathy, chronic diastolic congestive heart failure, hypertension, dyslipidemia, asthma, chronic kidney disease stage III, obstructive sleep apnea on CPAP, morbid obesity, gout presented to the ED from PMD's Office for excessive fluid retention and need for IV lasix. He was admitted for Diastolic CHF exacerbation. Diastolic CHF exacerbation iv lasix, continue metolazone and spironolactone. intake and ouput, dietary fluid restriction daily weights. PILI on CKD stage 3 Due to diastolic CHF exacerbation will continue with diuresis and continue to monitor avoid NSAIDS, losartan. Contact flavoring machine operator to get baseline renal functions in the last 3 months. Hypercalcemia with low PTH and Thanh Vit D levels. Ordered 1. 25 vit d and pthrp levels will continue to monitor If it rises with diuresis then will have to cut down on the lasix will hold all calcium and vit d supplementations. Transaminitis probably due t to congestive hepatopathy from chronic heart failure. will continue with diuresis Moderate Pulmonary hypertension continue diuretics. ARUN on CPAP May use own CPAP Diabetes Levemir and lispro as per sliding scale. FS AC and HS Hypertension Chronic continue with spironolactone, lasix, metolazone, metoprolol with reduced dose . Will hold ARB as present due to Pili on CKD would like to have adequete BP for IV lasix so will reduced other antihypertensives CAD (coronary artery disease) nonobstructive CAD continue stain, betablocker Morbid obesity complicating care. He has started discussion with his [facility] and [facility] about [facility]. He has been told that [facility] never [facility] and procedures. So Patient is trying to get medicaid so that in the near future he can pursue a weight loss procedure. carb consistent diet. Asthma stable albuterol prn Diabetic neuropathy continue gabapentin and tylenol, cymbalta Hyperlipidemia continue statin, fenofibrate Gout allopurinol. Plan/VTE VTE Prophylaxis Ordered?: Yes VS, I&O, 24H, Fishbone Vital Signs/I&O Vital Signs Date Time Temp Pulse Resp B/P (MAP) Pulse Ox O2 Delivery O2 Flow Rate FiO2 08/19/19 14:00 98.2 92 17 132/75 (94) 91 Room Air I&O- Last 24 Hours up to 6 AM 08/19/19 06:00 Intake Total 900 ml Output Total 1000 ml Balance -100 ml Laboratory Data 24H LABS Laboratory Tests 2 08/18/19 16:04: Immature Granulocyte % (Auto) 1.2, Neutrophils (%) (Auto) 73.4H, Lymphocytes (%) (Auto) 13.3L, Monocytes (%) (Auto) 10.0H, Eosinophils (%) (Auto) 1.5, Basophils (%) (Auto) 0.6, Neutrophils # (Auto) 8.6H, Lymphocytes # (Auto) 1.6, Monocytes # (Auto) 1.2H, Eosinophils # (Auto) 0.2, Basophils # (Auto) 0.1, Nucleated Red Blood Cells % (auto) 0.0, Anion Gap 9, Glomerular Filtration Rate 42.0L, Calcium Level 11.3H, Total Bilirubin 0.4, Direct Bilirubin 0.1, Aspartate Amino Transf (AST/SGOT) 76H, Alanine Aminotransferase (ALT/SGPT) 135H, Alkaline Phosphatase 298H, Total Creatine Kinase 78, Creatine Kinase MB 2.1, Creatine Kinase MB Relative Index 2.69, Troponin I < 0.02, NC-Jur-G-Type Natriuretic Peptide 127H, Total Protein 6.9, Albumin 3.1L, Albumin/Globulin Ratio 0.82L, Thyroid Sti mulating Hormone (TSH) 2.980 08/18/19 19:13: Bedside Glucose (Misc Panel) 143H 08/18/19 21:36: Bedside Glucose (Misc Panel) 173H 08/19/19 08:17: Immature Granulocyte % (Auto) 1.8, Neutrophils (%) (Auto) 68.9H, Lymphocytes (%) (Auto) 15.9L, Monocytes (%) (Auto) 10.5H, Eosinophils (%) (Auto) 2.2, Basophils (%) (Auto) 0.7, Neutrophils # (Auto) 7.4, Lymphocytes # (Auto) 1.7, Monocytes # (Auto) 1.1H, Eosinophils # (Auto) 0.2, Basophils # (Auto) 0.1, Nucleated Red Blood Cells % (auto) 0.0, Anion Gap 5L, Glomerular Filtration Rate 47.3L, Ca lcium Level 11.1H 08/19/19 08:44: Bedside Glucose (Misc Panel) 147H 08/19/19 10:01: Total Bilirubin 0.4, Direct Bilirubin 0.1, Aspartate Amino Transf (AST/SGOT) 62H, Alanine Aminotransferase (ALT/SGPT) 127H, Alkaline Phosphatase 275H, Total Protein 6.7, Albumin 3.2, Albumin/Globulin Ratio 0.91L, 25-Hydroxy Vitamin D Total 23.3L, Parathyroid Hormone (Intact) 8.7L 08/19/19 12:00: Bedside Glucose (Misc Panel) 219H CBC/BMP Laboratory Tests 08/18/19 16:04 08/19/19 08:17 MARÍA WATSON MD Aug 19, 2019 15:12
[2019-08-19 20:32] VITALS: BP 179/91
[2019-08-19] MEDS: ALLOPURINOL 300 MG TAB PO SCH (20:34)
[2019-08-19] MEDS: ASPIRIN 81 MG ENTERIC TAB PO SCH (20:35)
[2019-08-19] MEDS: DULoxetine 30 MG CAP (CYMBALTA) PO SCH (20:35)
[2019-08-19 20:37] VITALS: BP 154/89
[2019-08-20] MEDS: FUROSEMIDE 40 MG/4 ML VIAL (J1940) IV SCH ×2 (00:29→05:38)
[2019-08-20 06:00] VITALS: BP 156/90
[2019-08-20 06:52] LABS: BASO # 0.1 10^3/uL (0.0-0.2); BASO % 0.6 % (0.0-1.0); EOS # 0.2 10^3/uL (0.0-0.5); EOS % 1.8 % (0.0-3.0); HEMATOCRIT 43.3 % (42.0-52.0); HEMOGLOBIN 14.4 g/dl (13.5-17.5); LYMPH # 1.3 10^3/uL (1.5-5.0); LYMPH % 11.6 % (24.0-44.0); MEAN CORPUSCULAR HEMOGLOBIN 31.5 pg (27.0-33.0); MEAN CORPUSCULAR HGB CONC 33.3 g/dl (32.0-36.5); MEAN CORPUSCULAR VOLUME 94.7 fl (80.0-96.0); MONO % 9.2 % (0.0-5.0); NEUTROPHILS # 8.5 10^3/uL (1.5-8.5); NEUTROPHILS % 75.2 % (36.0-66.0); PLATELET COUNT, AUTOMATED 220 10^3/uL (150-450); RED BLOOD COUNT 4.57 10^6/uL (4.30-6.10); WHITE BLOOD COUNT 11.3 10^3/uL (4.0-10.0)
[2019-08-20 07:22] LABS: BLOOD UREA NITROGEN 56 MG/DL (7-18); CALCIUM LEVEL 10.6 MG/DL (8.5-10.1); CARBON DIOXIDE LEVEL 27 MEQ/L (21-32); CHLORIDE LEVEL 102 MEQ/L (98-107); CREATININE FOR GFR 1.56 MG/DL (0.70-1.30); GLOMERULAR FILTRATION RATE 51.5 (>60); GLUCOSE, FASTING 354 MG/DL (70-100); POTASSIUM SERUM 4.6 MEQ/L (3.5-5.1); SODIUM LEVEL 137 MEQ/L (136-145)
[2019-08-20 08:18] VITALS: BP 156/90
[2019-08-20] MEDS: METOPROLOL SUCC (TopROL XL) 100MG *XL* TAB PO SCH (08:18)
[2019-08-20] MEDS: FENOFIBRATE 145 MG TAB (TRICOR) PO SCH (08:18)
[2019-08-20] MEDS: HEPARIN SOD (PORCINE) 5000 UNITS/ML VIAL SC SCH (08:18)
[2019-08-20] MEDS: DOCUSATE SODIUM 100 MG CAP PO SCH (08:18)
[2019-08-20] MEDS: GABAPENTIN 300 MG CAP PO SCH (08:19)
[2019-08-20] MEDS: SPIRONOLACTONE 50 MG TAB PO SCH (08:19)
[2019-08-20] MEDS: ROSUVASTATIN 10 MG TAB (CRESTOR) PO SCH (08:19)
[2019-08-20] MEDS ORDERED: BUME2TAB3 PO (09:23)
[2019-08-20 10:08] LABS: ALBUMIN 3.2 GM/DL (3.2-5.2); ALT/SGPT 118 U/L (12-78); BILIRUBIN,DIRECT < 0.1 MG/DL (0.0-0.2); BILIRUBIN,TOTAL 0.6 MG/DL (0.2-1.0); TOTAL PROTEIN 7.5 GM/DL (6.4-8.2)
--- NOTE | 2019-08-20 12:06 | DS.PDOC ---
Discharge Summary General Date of Admission Aug 18, 2019 at 18:09 Date of Discharge 08/20/19 Discharge Summary PROCEDURES PERFORMED DURING STAY: [None]. DISCHARGE DIAGNOSES: Diastolic CHF exacerbation Hypercalcemia Transaminitis SECONDARY DIAGNOSIS: Diabetes mellitus, peripheral neuropathy, chronic diastolic congestive heart failure, hypertension, dyslipidemia, asthma, chronic kidney disease stage III, obstructive sleep apnea on CPAP, morbid obesity, gout COMPLICATIONS/CHIEF COMPLAINT: Chf Exacerbation. HISTORY OF PRESENT ILLNESS: See history and physical HOSPITAL COURSE: 44 year old male with PMH of Diabetes mellitus, peripheral neuropathy, chronic diastolic congestive heart failure, hypertension, dyslipidemia, asthma, chronic kidney disease stage III, obstructive sleep apnea on CPAP, morbid obesity, gout presented to the ED from PMD's Office for excessive fluid retention and need for IV lasix. He was admitted for Diastolic CHF exacerbation. Diastolic CHF exacerbation treated with iv lasix, continue metolazone and spironolactone. intake and ouput, dietary fluid restriction daily weights. with good diuresis Now can restart own bumax 4 mg bis. PILI on CKD stage 3 Due to diastolic CHF exacerbation creatinine at baseline now. Hypercalcemia a little beter this am. with low PTH and Low Vit D levels. Ordered 1.25 vit d and pthrp levels follow up results. can continue vit d. Transaminitis probably due to congestive hepatopathy from chronic heart failure. will continue with diuresis Has fatty liver also. ordered hepatitis panel Moderate Pulmonary hypertension continue diuretics. ARUN on CPAP continue PAP Diabetes continue home meds. Hypertension Chronic continue home medications. CAD (coronary artery disease) nonobstructive CAD continue stain, betablocker Morbid obesity complicating care. He has started discussion with [facility] and [facility] about [facility]. He has been told that typically [facility] never [facility] and procedures. So Patient is trying to get medicaid so that in the near future he can pursue a weight loss procedure. carb consistent diet. Asthma stable albuterol prn Diabetic neuropathy continue gabapentin and tylenol, cymbalta Hyperlipidemia continue statin, fenofibrate Gout allopurinol. DISCHARGE MEDICATIONS: Please see below. ALLERGIES: Please see below. PHYSICAL EXAMINATION ON DISCHARGE: VITAL SIGNS: Please see below. General Exam: Positive: Alert, Cooperative, No Acute Distress, Other (morbidly obese) Eye Exam: Positive: PERRLA, Conjunctiva & lids normal, EOMI; Negative: Sclera icteric ENT Exam: Positive: Atraumatic, Mucous membr. moist/pink, Pharynx Normal Neck Exam: Positive: Supple; Negative: JVD, thyromegaly Chest Exam: Positive: Clear to auscultation, Normal air movement Heart Exam: Positive: Rate Normal, Regular Rhythm, Normal S1, Normal S2; Negative: Murmurs, Rubs Telemetry: Positive: No significant arrhythmia Abdomen Exam: Positive: Normal bowel sounds, Soft; Negative: Tenderness, Hepatospenomegaly Extremity Exam: Positive: Edema, Swelling Skin Exam: Positive: Other skin issue (chronic venous stasis changes.) Neuro Exam: Positive: Normal Speech, Strength at 5/5 X4 ext, Normal Tone Psych Exam: Positive: Mood NL, Memory Intact, Oriented x 3 LABORATORY DATA: Please see below. ACTIVITY: [As tolerated]. DIET: Carb consistent with fluid restriction of 2 L DISPOSITION: 01 Home, Self-Care. DISCHARGE INSTRUCTIONS: Follow up PMD in 2 weeks DISCHARGE CONDITION: [Stable]. TIME SPENT ON DISCHARGE: 35 minutes. Vital Signs/I&Os Vital Signs Date Time Temp Pulse Resp B/P (MAP) Pulse Ox O2 Delivery O2 Flow Rate FiO2 08/20/19 08:18 96 156/90 08/20/19 06:00 97.2 20 90 Room Air I&O- Last 24 Hours up to 6 AM 08/20/19 06:00 Intake Total 2240 ml Output Total 5700 ml Balance -3460 ml Laboratory Data Labs 24H Laboratory Tests 2 08/19/19 12:00: Bedside Glucose (Misc Panel) 219H 08/19/19 16:42: Bedside Glucose (Misc Panel) 259H 08/19/19 17:50: 08/19/19 20:41: Bedside Glucose (Misc Panel) 289H 08/20/19 06:23: Immature Granulocyte % (Auto) 1.6, Neutrophils (%) (Auto) 75.2H, Lymphocytes (%) (Auto) 11.6L, Monocytes (%) (Auto) 9.2H, Eosinophils (%) (Auto) 1.8, Basophils (%) (Auto) 0.6, Neutrophils # (Auto) 8.5, Lymphocytes # (Auto) 1.3L, Monocytes # (Auto) 1.0H, Eosinophils # (Auto) 0.2, Basophils # (Auto) 0.1, Nucleated Red Blood Cells % (auto) 0.0, Anion Gap 8, Glomerular Filtration Rate 51.5L, Calcium Level 10.6H, Total Bilirubin 0.6, Direct Bilirubin < 0.1, Aspartate Amino Transf (AST/SGOT) 77H, Alanine Aminotransferase (ALT/SGPT) 118H, Alkaline Phosphatase 289H, Total Protein 7.5, Albumin 3.2, Albumin/Globulin Ratio 0.74L 08/20/19 08:03: Bedside Glucose (Misc Panel) 382H CBC/BMP Laboratory Tests 08/20/19 06:23 FSBS Laboratory Tests Test 08/19/19 12:00 08/19/19 16:42 08/19/19 20:41 08/20/19 08:03 Range/Units Bedside Glucose (Misc Panel) 219 259 289 382 70-105 MG/DL Discharge Medications Scheduled Allopurinol (Zyloprim) 300 Mg Tab, 600 MG PO QHS, (Reported) Aspirin (Aspir 81) 81 Mg Tablet.dr, 81 MG PO QHS, (Reported) Bumetanide (Bumetanide) 2 Mg Tablet, 4 MG PO QAM, (Reported) Bumetanide (Bumetanide) 2 Mg Tablet, 4 MG PO QPM Take at 5 pm Cholecalciferol (Vitamin D3) (Vitamin D3) 1,000 Unit Capsule, 5,000 UNIT PO DAILY, (Reported) Colchicine (Colchicine) 0.6 Mg Tab, 0.6 MG PO PRN, (Reported) Docusate Sodium (Docusate Sodium) 100 Mg Cap, 100 MG PO BID, (Reported) Duloxetine Hcl (Duloxetine HCl) 30 Mg Cap, 90 MG PO QHS, (Reported) Fenofibrate Nanocrystallized (Fenofibrate) 145 Mg Tablet, 145 MG PO DAILY, (Reported) Gabapentin (Gabapentin) 300 Mg Capsule, 300 MG PO BID, (Reported) Insulin Glargine,Hum.rec.anlog (Toujeo Solostar) 300 Unit/Ml Inj, 110 UNIT SC QAM, (Reported) Insulin Glargine,Hum.rec.anlog (Toujeo Solostar) 300 Unit/Ml Inj, 120 UNIT SC QHS, (Reported) Insulin Human Lispro (Humalog) 1 Units/0.01 Ml Inj, 1 DOSE SC ASDIRECTED, (Reported) CONTINUOUS VIA PUMP Losartan Potassium (Losartan Potassium) 100 Mg Tab, 100 MG PO QHS, (Reported) Metolazone (Metolazone) 2.5 Mg Tab, 2.5 MG PO QAM, (Reported) 30 MINUTES BEFORE OTHER MEDS IN THE MORNING Metoprolol Succinate (Metoprolol Succinate) 200 Mg Tab, 200 MG PO DAILY, (Reported) Multivit-Minerals/Folic Acid (Adult Multivitamin Gummies) 1 Chw Chw, 1 TAB PO QHS, (Reported) [place]-3 Fatty Acids/Fish Oil (Fish Oil 1,000 mg Capsule) 1 Each Capsule, 4,000 MG PO BID, (Reported) Potassium Chloride (Klor-Con M10) 10 Meq Tabcr, 10 MEQ PO QAM, (Reported) Potassium Chloride (Klor-Con M10) 10 Meq Tabcr, 20 MEQ PO QPM, (Reported) Rosuvastatin Calcium (Rosuvastatin Calcium) 20 Mg Tab, 20 MG PO DAILY, (Reported) Spironolactone (Spironolactone) 50 Mg Tab, 50 MG PO BID, (Reported) Scheduled PRN Cetirizine HCl (Cetirizine HCl) 10 Mg Tab, 10 MG PO QHS PRN for CONGESTION, (Reported) Diphenhydramine HCl (Diphenhydramine HCl) 50 Mg Capsule, 50 MG PO PRN PRN for ITCHING, (Reported) Fluocinonide/Emollient Base (Fluocinonide-E 0.05% Cream) 15 Gm Cream..g., 1 APPLIC TOP DAILY PRN for DERMATITIS, (Reported) Allergies Coded Allergies: lisinopril (Verified Allergy, Unknown, 08/11/19) MARÍA WATSON MD Aug 20, 2019 12:06
[2019-08-21 10:04] LABS: HEPATITIS B SURFACE ANTIGEN NEGATIVE (NEGATIVE)
[2019-08-21 10:30] LABS: HEPATITIS B CORE ANTIBODY IGM NEGATIVE (NEGATIVE); HEPATITIS C VIRUS ABY INDEX 0.1 INDEX (<0.8)
== END 2019-08-20 11:35 | disposition home or self-care (01) | DRG 291 ==
LOC: M ED 14:44 → M ED INP 18:09 → M MS5PR 21:20
PROVIDERS: ADMIT Internal Medicine Nephrology; ATTEND Internal Medicine Nephrology
DX: I13.0 Hypertensive heart and chronic kidney disease with heart failure and stage 1 through stage 4 chronic kidney disease, or unspecified chronic kidney disease (principal); I50.33 Acute on chronic diastolic (congestive) heart failure; Z68.43 Body mass index [BMI] 50.0-59.9, adult; N17.9 Acute kidney failure, unspecified; E11.42 Type 2 diabetes mellitus with diabetic polyneuropathy; E83.52 Hypercalcemia; E11.22 Type 2 diabetes mellitus with diabetic chronic kidney disease; E78.5 Hyperlipidemia, unspecified; F17.210 Nicotine dependence, cigarettes, uncomplicated; J45.909 Unspecified asthma, uncomplicated; N18.3 Chronic kidney disease, stage 3 (moderate); G47.33 Obstructive sleep apnea (adult) (pediatric); E66.01 Morbid (severe) obesity due to excess calories; M10.9 Gout, unspecified; R74.0 Nonspecific elevation of levels of transaminase and lactic acid dehydrogenase [LDH]; Z79.82 Long term (current) use of aspirin; Z79.4 Long term (current) use of insulin; Z79.899 Other long term (current) drug therapy; Z88.8 Allergy status to other drugs, medicaments and biological substances; Z90.49 Acquired absence of other specified parts of digestive tract; I27.20 Pulmonary hypertension, unspecified; I25.10 Atherosclerotic heart disease of native coronary artery without angina pectoris

== ENCOUNTER → 2019-11-11 | Outpatient (REF) | payer OTHER ==
[~2019-11-11] MED LIST changes: -FENO145T13 PO; +FENO145T7 PO; +VITA100054 PO
[2019-11-11 12:23] LABS: BASO # 0.1 10^3/uL (0.0-0.2); BASO % 0.6 % (0.0-1.0); EOS # 0.2 10^3/uL (0.0-0.5); EOS % 1.5 % (0.0-3.0); HEMATOCRIT 42.7 % (42.0-52.0); HEMOGLOBIN 14.3 g/dl (13.5-17.5); LYMPH # 1.5 10^3/uL (1.5-5.0); LYMPH % 14.2 % (24.0-44.0); MEAN CORPUSCULAR HEMOGLOBIN 32.3 pg (27.0-33.0); MEAN CORPUSCULAR HGB CONC 33.5 g/dl (32.0-36.5); MEAN CORPUSCULAR VOLUME 96.4 fl (80.0-96.0); MONO % 9.1 % (0.0-5.0); NEUTROPHILS % 73.2 % (36.0-66.0); PLATELET COUNT, AUTOMATED 253 10^3/uL (150-450); RED BLOOD COUNT 4.43 10^6/uL (4.30-6.10); WHITE BLOOD COUNT 10.9 10^3/uL (4.0-10.0)
[2019-11-11 12:51] LABS: HEMOGLOBIN A1c 8.5 %
[2019-11-11 12:56] LABS: ALBUMIN 3.4 GM/DL (3.2-5.2); ALT/SGPT 58 U/L (12-78); BILIRUBIN,TOTAL 0.3 MG/DL (0.2-1.0); BLOOD UREA NITROGEN 63 MG/DL (7-18); CALCIUM LEVEL 10.3 MG/DL (8.5-10.1); CARBON DIOXIDE LEVEL 26 MEQ/L (21-32); CHLORIDE LEVEL 103 MEQ/L (98-107); CHOLESTEROL LEVEL 139 MG/DL (<200); CHOLESTEROL RISK RATIO 4.964 (<5); CREATININE FOR GFR 2.06 MG/DL (0.70-1.30); FREE T4 0.91 NG/DL (0.76-1.46); GLOMERULAR FILTRATION RATE 37.4 (>60); GLUCOSE, FASTING 133 MG/DL (70-100); HDL CHOLESTEROL 28 MG/DL (>40); NON-HDL-C 111 MG/DL; SODIUM LEVEL 137 MEQ/L (136-145); TOTAL 25(OH) VITAMIN D 25.9 NG/ML (30.0-100.0); TRIGLYCERIDES LEVEL 446 MG/DL (<150)
== END ==
LOC: M LAB REF 11:50
PROVIDERS: ATTEND Nurse Practitioner Family
DX: Z13.9 Encounter for screening, unspecified (principal); I11.0 Hypertensive heart disease with heart failure; E10.8 Type 1 diabetes mellitus with unspecified complications; F17.200 Nicotine dependence, unspecified, uncomplicated; R06.09 Other forms of dyspnea; Z79.899 Other long term (current) drug therapy
CPT/HCPCS: 80053; 80061; 82306; 83036; 84439; 84443; 85025; G0103

== ENCOUNTER → 2019-12-09 | Outpatient (REF) | payer OTHER, MEDICAID ==
[2019-12-09 19:32] LABS: BASO # 0.1 10^3/uL (0.0-0.2); BASO % 0.6 % (0.0-1.0); EOS # 0.2 10^3/uL (0.0-0.5); EOS % 1.3 % (0.0-3.0); HEMATOCRIT 41.5 % (42.0-52.0); HEMOGLOBIN 14.3 g/dl (13.5-17.5); LYMPH # 1.4 10^3/uL (1.5-5.0); MEAN CORPUSCULAR HEMOGLOBIN 33.2 pg (27.0-33.0); MEAN CORPUSCULAR HGB CONC 34.5 g/dl (32.0-36.5); MEAN CORPUSCULAR VOLUME 96.3 fl (80.0-96.0); MONO # 1.1 10^3/uL (0.0-0.8); MONO % 8.8 % (0.0-5.0); NEUTROPHILS # 9.5 10^3/uL (1.5-8.5); NEUTROPHILS % 76.8 % (36.0-66.0); PLATELET COUNT, AUTOMATED 269 10^3/uL (150-450); RED BLOOD COUNT 4.31 10^6/uL (4.30-6.10); WHITE BLOOD COUNT 12.4 10^3/uL (4.0-10.0)
[2019-12-09 19:43] LABS: ALBUMIN 3.4 GM/DL (3.2-5.2); BILIRUBIN,TOTAL 0.4 MG/DL (0.2-1.0); CALCIUM LEVEL 10.2 MG/DL (8.5-10.1); CREATININE FOR GFR 2.36 MG/DL (0.70-1.30); GLOMERULAR FILTRATION RATE 31.9 (>60); POTASSIUM SERUM 4.3 MEQ/L (3.5-5.1); TOTAL PROTEIN 7.3 GM/DL (6.4-8.2)
== END ==
LOC: M LAB REF 19:10
PROVIDERS: ATTEND Nurse Practitioner Family
DX: Z13.9 Encounter for screening, unspecified (principal); E66.01 Morbid (severe) obesity due to excess calories; E10.8 Type 1 diabetes mellitus with unspecified complications; I10 Essential (primary) hypertension; I50.9 Heart failure, unspecified

== ENCOUNTER → 2020-03-11 | Outpatient (REF) | payer OTHER, MEDICAID ==
[2020-03-11 12:21] LABS: BASO # 0.1 10^3/uL (0.0-0.2); BASO % 0.8 % (0.0-1.0); EOS # 0.2 10^3/uL (0.0-0.5); HEMOGLOBIN 12.5 g/dl (13.5-17.5); LYMPH # 1.4 10^3/uL (1.5-5.0); LYMPH % 12.9 % (24.0-44.0); MEAN CORPUSCULAR HEMOGLOBIN 30.6 pg (27.0-33.0); MEAN CORPUSCULAR HGB CONC 32.1 g/dl (32.0-36.5); MEAN CORPUSCULAR VOLUME 95.4 fl (80.0-96.0); MONO # 1.2 10^3/uL (0.0-0.8); MONO % 10.8 % (0.0-5.0); NEUTROPHILS # 7.7 10^3/uL (1.5-8.5); NEUTROPHILS % 70.5 % (36.0-66.0); PLATELET COUNT, AUTOMATED 320 10^3/uL (150-450); RED BLOOD COUNT 4.09 10^6/uL (4.30-6.10)
[2020-03-11 13:03] LABS: ALBUMIN 3.5 GM/DL (3.2-5.2); ALT/SGPT 53 U/L (12-78); BILIRUBIN,TOTAL 0.4 MG/DL (0.2-1.0); BLOOD UREA NITROGEN 84 MG/DL (7-18); CALCIUM LEVEL 10.7 MG/DL (8.5-10.1); CARBON DIOXIDE LEVEL 27 MEQ/L (21-32); CHLORIDE LEVEL 98 MEQ/L (98-107); CHOLESTEROL LEVEL 169 MG/DL (<200); CHOLESTEROL RISK RATIO 5.633 (<5); CREATININE FOR GFR 2.33 MG/DL (0.70-1.30); GLOMERULAR FILTRATION RATE 32.4 (>60); GLUCOSE, FASTING 245 MG/DL (70-100); HDL CHOLESTEROL 30 MG/DL (>40); NON-HDL-C 139 MG/DL; POTASSIUM SERUM 4.8 MEQ/L (3.5-5.1); SODIUM LEVEL 132 MEQ/L (136-145); TOTAL PROTEIN 7.6 GM/DL (6.4-8.2); TRIGLYCERIDES LEVEL 663 MG/DL (<150)
== END ==
LOC: M LAB REF 11:46
PROVIDERS: ATTEND Nurse Practitioner Family
DX: N18.9 Chronic kidney disease, unspecified (principal); E66.01 Morbid (severe) obesity due to excess calories; I50.9 Heart failure, unspecified; I10 Essential (primary) hypertension; Z13.9 Encounter for screening, unspecified

== ENCOUNTER → 2020-04-23 | Outpatient (REF) | payer OTHER, MEDICAID ==
[~2020-04-23] MED LIST changes: +AMLO1TAB24 PO; -AMLO5TAB6 PO; -ASPI81TA85 PO; +ASPI81TA86 PO; -PANT20TA2 PO; +PANT20TA6 PO
[2020-05-21 09:53] LABS: BASO % 0.3 % (0.0-1.0); EOS # 0.1 10^3/uL (0.0-0.5); EOS % 0.8 % (0.0-3.0); HEMATOCRIT 38.4 % (42.0-52.0); HEMOGLOBIN 12.2 g/dl (13.5-17.5); LYMPH # 0.7 10^3/uL (1.5-5.0); MEAN CORPUSCULAR HEMOGLOBIN 30.9 pg (27.0-33.0); MEAN CORPUSCULAR HGB CONC 31.8 g/dl (32.0-36.5); MEAN CORPUSCULAR VOLUME 97.2 fl (80.0-96.0); MONO # 0.7 10^3/uL (0.0-0.8); MONO % 7.8 % (0.0-5.0); NEUTROPHILS # 7.5 10^3/uL (1.5-8.5); NEUTROPHILS % 82.7 % (36.0-66.0); PLATELET COUNT, AUTOMATED 263 10^3/uL (150-450); RED BLOOD COUNT 3.95 10^6/uL (4.30-6.10)
[2020-05-30 09:04] LABS: ALBUMIN 3.3 GM/DL (3.2-5.2); BILIRUBIN,TOTAL 0.5 MG/DL (0.2-1.0); CALCIUM LEVEL 9.4 MG/DL (8.5-10.1); CREATININE FOR GFR 1.98 MG/DL (0.70-1.30); GLOMERULAR FILTRATION RATE 39.1 (>60); MAGNESIUM LEVEL 1.6 MG/DL (1.8-2.4); PERCENT SATURATION 12.9 % (19.7-50.0); PHOSPHORUS LEVEL 2.4 MG/DL (2.5-4.9); POTASSIUM SERUM 4.1 MEQ/L (3.5-5.1); TOTAL 25(OH) VITAMIN D 23.9 NG/ML (30.0-100.0); TOTAL PROTEIN 6.3 GM/DL (6.4-8.2)
[2020-05-30 09:14] LABS: HEMATOCRIT 38.4 % (42.0-52.0)
== END ==
LOC: M WUC 08:17
PROVIDERS: ATTEND Surgery
DX: K91.2 Postsurgical malabsorption, not elsewhere classified (principal); E55.9 Vitamin D deficiency, unspecified; Z98.84 Bariatric surgery status

== ENCOUNTER 2020-08-02 10:49 | Emergency (ER) | payer MEDICAID, OTHER ==
[~2020-08-02] VITALS: Ht 170.2 cm; Wt 131.9 kg
[2020-08-02 11:27] LABS: BASO # 0.1 10^3/uL (0.0-0.2); BASO % 0.5 % (0.0-1.0); EOS # 0.1 10^3/uL (0.0-0.5); EOS % 0.8 % (0.0-3.0); HEMATOCRIT 41.9 % (42.0-52.0); HEMOGLOBIN 13.1 g/dl (13.5-17.5); LYMPH # 1.5 10^3/uL (1.5-5.0); LYMPH % 10.9 % (24.0-44.0); MEAN CORPUSCULAR HEMOGLOBIN 29.2 pg (27.0-33.0); MEAN CORPUSCULAR HGB CONC 31.3 g/dl (32.0-36.5); MEAN CORPUSCULAR VOLUME 93.3 fl (80.0-96.0); NEUTROPHILS % 80.2 % (36.0-66.0); PLATELET COUNT, AUTOMATED 300 10^3/uL (150-450); RED BLOOD COUNT 4.49 10^6/uL (4.30-6.10); WHITE BLOOD COUNT 13.7 10^3/uL (4.0-10.0)
[2020-08-02 11:38] LABS: INR 0.88; PARTIAL THROMBOPLASTIN TIME 30.9 SECONDS (24.2-38.5); PROTHROMBIN TIME 12.1 SECONDS (12.5-14.3)
[2020-08-02 12:19] LABS: ALBUMIN 3.1 GM/DL (3.2-5.2); BILIRUBIN,DIRECT 0.1 MG/DL (0.0-0.2); BILIRUBIN,TOTAL 0.5 MG/DL (0.2-1.0); CALCIUM LEVEL 9.5 MG/DL (8.5-10.1); CK-MB VALUE MASS 4.6 NG/ML (<3.6); CREATININE FOR GFR 1.45 MG/DL (0.70-1.30); FREE T4 0.91 NG/DL (0.76-1.46); GLOMERULAR FILTRATION RATE 55.8 (>60); MB/CK RELATIVE INDEX 4.14 (< OR =4); POTASSIUM SERUM 4.4 MEQ/L (3.5-5.1); THYROID STIMULATING HORMONE 2.04 uIU/ML (0.358-3.740); TOTAL PROTEIN 7.3 GM/DL (6.4-8.2); TROPONIN I 2.57 NG/ML (< 0.10)
[2020-08-02] MEDS ORDERED: CLOPIDOGREL 300 MG TAB (PLAVIX) PO STA (12:38)
[2020-08-02] MEDS ORDERED: HEPARIN DRIP 25,000 UNITS in IV 1 EA IV SCH (12:39)
[2020-08-02] MEDS ORDERED: HEPARIN 25,000 UNITS/250 ML D5W BAG (100 UNITS/ML) (J1644 PER 1000UNITS) As Ordered ONE (12:43)
[2020-08-02] MEDS ORDERED: ASPIRIN 325 MG TAB PO ONE (12:45)
[2020-08-02] MEDS ORDERED: HEPARIN SOD (PORCINE) 5000UNITS/ML 1ML VIAL/SYRINGE IV ONE (12:45)
--- NOTE | 2020-08-02 13:19 | REP ---
INDICATION: CHEST PAIN. COMPARISON: 08/18/2019. TECHNIQUE: SINGLE PORTABLE AP VIEW OF THE CHEST WAS PERFORMED. FINDINGS: THERE IS NO ACUTE INFILTRATE OR PULMONARY EDEMA. LUNGS ARE CLEAR. HEART IS NOT SIGNIFICANTLY ENLARGED. MEDIASTINAL SILHOUETTE IS UNREMARKABLE. THE VISUALIZED OSSEOUS STRUCTURES ARE INTACT. There is some calcification of the thoracic aorta. IMPRESSION: NO ACUTE PULMONARY DISEASE. <Electronically signed by Jairo Sheikh > 08/02/20 [id number]
[2020-08-02 14:12] VITALS: BP 150/69
--- NOTE | 2020-08-02 21:08 | ECGEPIP ---
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
== END 2020-08-02 14:17 | disposition short-term general hospital (02) ==
LOC: M ED 10:49
DX: I21.4 Non-ST elevation (NSTEMI) myocardial infarction (principal); I11.0 Hypertensive heart disease with heart failure; N18.30 Chronic kidney disease, stage 3 unspecified; E11.9 Type 2 diabetes mellitus without complications; E78.5 Hyperlipidemia, unspecified; F17.200 Nicotine dependence, unspecified, uncomplicated; Z79.82 Long term (current) use of aspirin; Z79.899 Other long term (current) drug therapy; Z87.891 Personal history of nicotine dependence; Z88.8 Allergy status to other drugs, medicaments and biological substances; Z98.84 Bariatric surgery status
CPT/HCPCS: 36415; 71045; 80048; 80076; 82550; 82553; 83690; 84439; 84443; 85025; 85610; 85730; 93005; 93041; 94760; 96365; 96374; 99285; J1644; U0002

== ENCOUNTER → 2020-08-30 | Outpatient (CLI) | payer OTHER ==
[~2020-08-30] MED LIST changes: +COLC0.6T47 PO; -COLC1TAB13 PO
[2020-08-30 12:22] LABS: CALCIUM LEVEL 8.5 MG/DL (8.5-10.1); CREATININE FOR GFR 1.56 MG/DL (0.70-1.30); GLOMERULAR FILTRATION RATE 51.3 (>60); POTASSIUM SERUM 3.8 MEQ/L (3.5-5.1)
== END ==
LOC: M WUC 09:46
PROVIDERS: ATTEND Thoracic Surgery (Cardiothoracic Vascular Surgery)
DX: Z79.899 Other long term (current) drug therapy (principal)

== ENCOUNTER → 2020-09-06 | Outpatient (CLI) | payer OTHER ==
[2020-09-06 12:21] LABS: BLOOD UREA NITROGEN 32 MG/DL (7-18); CALCIUM LEVEL 9.4 MG/DL (8.5-10.1); CARBON DIOXIDE LEVEL 31 MEQ/L (21-32); CHLORIDE LEVEL 102 MEQ/L (98-107); CREATININE FOR GFR 1.22 MG/DL (0.70-1.30); GLOMERULAR FILTRATION RATE > 60.0 (>60); GLUCOSE, FASTING 149 MG/DL (70-100); POTASSIUM SERUM 3.6 MEQ/L (3.5-5.1); SODIUM LEVEL 138 MEQ/L (136-145)
== END ==
LOC: M WUC 09:33
PROVIDERS: ATTEND Thoracic Surgery (Cardiothoracic Vascular Surgery)
DX: R79.89 Other specified abnormal findings of blood chemistry (principal)

== ENCOUNTER → 2020-10-31 | Outpatient (CLI) | payer OTHER ==
[~2020-10-31] MED LIST changes: +GABA-282 PO; -GABA-843 PO
[2020-10-31 16:41] LABS: BASO # 0.1 10^3/uL (0.0-0.2); BASO % 0.6 % (0.0-1.0); EOS # 0.2 10^3/uL (0.0-0.5); EOS % 1.3 % (0.0-3.0); HEMATOCRIT 42.8 % (42.0-52.0); HEMOGLOBIN 13.2 g/dl (13.5-17.5); LYMPH # 1.3 10^3/uL (1.5-5.0); LYMPH % 11.6 % (24.0-44.0); MEAN CORPUSCULAR HEMOGLOBIN 26.6 pg (27.0-33.0); MEAN CORPUSCULAR HGB CONC 30.8 g/dl (32.0-36.5); MEAN CORPUSCULAR VOLUME 86.1 fl (80.0-96.0); MONO # 0.9 10^3/uL (0.0-0.8); NEUTROPHILS # 8.9 10^3/uL (1.5-8.5); NEUTROPHILS % 77.8 % (36.0-66.0); PLATELET COUNT, AUTOMATED 286 10^3/uL (150-450); RED BLOOD COUNT 4.97 10^6/uL (4.30-6.10); WHITE BLOOD COUNT 11.4 10^3/uL (4.0-10.0)
[2020-10-31 16:50] LABS: ALBUMIN 3.4 GM/DL (3.2-5.2); ALT/SGPT 35 U/L (12-78); BILIRUBIN,TOTAL 0.3 MG/DL (0.2-1.0); BLOOD UREA NITROGEN 42 MG/DL (7-18); CARBON DIOXIDE LEVEL 31 MEQ/L (21-32); CHLORIDE LEVEL 101 MEQ/L (98-107); CREATININE FOR GFR 1.31 MG/DL (0.70-1.30); FERRITIN 27 NG/ML (26-388); GLOMERULAR FILTRATION RATE > 60.0 (>60); GLUCOSE, FASTING 358 MG/DL (70-100); IRON (FE) 66 UG/DL (65-175); PHOSPHORUS LEVEL 3.5 MG/DL (2.5-4.9); POTASSIUM SERUM 3.7 MEQ/L (3.5-5.1); SODIUM LEVEL 139 MEQ/L (136-145); TOTAL IRON BINDING CAPACITY 287 UG/DL (250-450); TOTAL PROTEIN 6.4 GM/DL (6.4-8.2)
[2020-10-31 16:58] LABS: TOTAL 25(OH) VITAMIN D 36.5 NG/ML (30.0-100.0)
[2020-10-31 16:59] LABS: VITAMIN B12 LEVEL 1586 PG/ML (247-911)
[2020-10-31 18:31] LABS: HEMOGLOBIN A1c 7.4 %
[2020-10-31 18:52] LABS: HEMATOCRIT 42.8 % (42.0-52.0)
== END ==
LOC: M WUC 13:00
PROVIDERS: ATTEND Physician Assistant
DX: E55.9 Vitamin D deficiency, unspecified (principal); Z86.39 Personal history of other endocrine, nutritional and metabolic disease; K91.2 Postsurgical malabsorption, not elsewhere classified; Z98.84 Bariatric surgery status

== ENCOUNTER → 2020-10-31 | Outpatient (CLI) | payer OTHER | LOC: M WUC 13:04 | PROVIDERS: ATTEND Internal Medicine Cardiovascular Disease | DX: I50.32 Chronic diastolic (congestive) heart failure (principal) ==

== ENCOUNTER → 2020-11-08 | Outpatient (CLI) | payer OTHER ==
--- NOTE | 2020-11-08 17:10 | REP ---
INDICATION: PAIN IN RIGHT LEG, OTHER SYM INVOLVING CIR AND RES COMPARISON: None. TECHNIQUE: Real time sheikh scale and Duplex Doppler evaluation of the bilateral lower extremity arterial vasculature using linear high frequency transducer. FINDINGS: Sheikh scale and duplex doppler images demonstrate mild to moderate amounts of atheromatous plaquing with areas of narrowing but no focal stenosis identified. Doppler interrogation demonstrates normal arterial wave forms and velocities bilaterally. There are diffuse triphasic and biphasic waveforms bilaterally, with monophasic waveforms in the distal posterior tibial artery bilaterally and in the right distal anterior tibial artery. Peak systolic velocities (cm/sec) Common femoral artery: Right 113; Left 119 Profunda femoris: Right 103; Left 106 SFA (proximal): Right 140; Left 125 SFA (mid): Right 201; Left 243 SFA (distal): Right 182; Left 176 Popliteal artery: Right 116; Left 97 ROSSY (prox.): Right 110; Left 98 Tibioperoneal trunk: Right 111; Left 115 CATASTROPHE CLAIMS SUPERVISOR (prox.): Right 93; Left 134 CATASTROPHE CLAIMS SUPERVISOR (distal): Right 118; Left 92 ROSSY (distal): Right 93; Left 93 IMPRESSION: Atheromatous changes with areas of narrowing but no obvious focal occlusion or stenosis. <Electronically signed by Jairo Sheikh > 11/08/20 [id number]
--- NOTE | 2020-11-08 17:37 | REP ---
INDICATION: PAIN IN RIGHT LEG, OTHER SYM INVOLVING CIR AND RES COMPARISON: None. TECHNIQUE: Real-time ultrasound evaluation and duplex Doppler interrogation of the extracranial carotid vasculature is performed. FINDINGS: There is mild plaquing and narrowing in both carotid bulbs extending into the internal and external carotid arteries. Luminal narrowing is less than 50%. There is no evidence of hemodynamically significant stenosis of either internal carotid artery. Normal flow velocities are seen. The vertebral arteries demonstrate normal direction of flow. RIGHT LEFT Peak systolic velocity ICA 75.0 cm/s 84.7 cm/s End diastolic velocity ICA 6.8 cm/s 24.0 cm/s Peak systolic velocity CCA 142 cm/s 150cm/s Peak systolic velocity ECA 143 cm/s 144 cm/s ICA/CCA ratio 0.5 0.5 IMPRESSION: Bilateral luminal narrowing of the internal carotid arteries less than 50%. No evidence of hemodynamically significant stenosis. <Electronically signed by Jairo Sheikh > 11/08/20 [id number]
== END ==
LOC: M RAD 13:43
PROVIDERS: ATTEND Physician Assistant
DX: M79.606 Pain in leg, unspecified (principal); R09.89 Other specified symptoms and signs involving the circulatory and respiratory systems

== ENCOUNTER → 2020-12-29 | Outpatient (CLI) | payer OTHER ==
[~2020-12-29] MED LIST changes: +ASPI-569 PO; -ASPI81TAEC PO
--- NOTE | 2020-12-30 07:58 | REP ---
INDICATION: CKD 3A COMPARISON: None TECHNIQUE: Real time sandhu scale ultrasound examination using curved array transducer. FINDINGS: Bilateral kidneys are normal in contour, size, echogenicity, and reniform shape. No hydronephrosis, nephrolithiasis, cystic or renal mass lesion. Right kidney measures 14.2 x 7.0 x 6.8 cm. Left kidney measures 14.1 x 7.1 x 7.9 cm IMPRESSION: 1. Normal renal ultrasound <Electronically signed by Lawrence Torres > 12/30/20 [id number]
--- NOTE | 2020-12-30 07:59 | REP ---
INDICATION: CKD 3A/RETENTION OF URINE, WITH PVR COMPARISON: None TECHNIQUE: Real time B-mode ultrasound examination using curved array transducer. FINDINGS: Bladder is normal in appearance although mild wall thickening cannot be excluded. No focal mass lesion identified. Ureteral jets not visualized during examination. Prevoid bladder measures 14.4 x 11.5 x 7.3 cm (789 cc). Postvoid bladder measures 2 4.4 x 2.9 x 1.6 cm (13 cc). Postvoid residual: 1.7 % IMPRESSION: 1. Relatively normal bladder ultrasound. <Electronically signed by Lawrence Torres > 12/30/20 [id number]
== END ==
LOC: M RAD 10:15
PROVIDERS: ATTEND Internal Medicine Nephrology
DX: N18.31 Chronic kidney disease, stage 3a (principal)

== ENCOUNTER 2021-03-10 13:04 | Emergency (ER) | payer OTHER ==
[~2021-03-10] VITALS: Ht 170.2 cm; Wt 120.1 kg
--- NOTE | 2021-03-10 13:44 | REP ---
INDICATION: TRAUMA COMPARISON: None. TECHNIQUE: Five views left knee. FINDINGS: There is no evidence of acute fracture, dislocation, or intrinsic bone disease.There is mild medial joint space narrowing. Vascular calcifications are noted. There is metallic clip in the medial soft tissues. There is mild lateral patellofemoral compartment narrowing. A joint effusion is suspected. IMPRESSION: No fracture or dislocation. <Electronically signed by Jairo Sheikh > 03/10/21 2216
[2021-03-10] MEDS ORDERED: ACETAMINOPHEN 500 MG TAB PO ONE (14:15)
[2021-03-10] MEDS ORDERED: BOOSTRIX/ADACEL VACCINE (DIPHTH/PERTUSS/ACELL/TETANUS) 0.5ML SYR IM ONE (14:15)
[2021-03-10 15:09] VITALS: BP 156/73
== END 2021-03-10 15:15 | disposition home or self-care (01) ==
LOC: M ED 13:04
DX: S83.92XA Sprain of unspecified site of left knee, initial encounter (principal); W01.0XXA Fall on same level from slipping, tripping and stumbling without subsequent striking against object, initial encounter; I25.2 Old myocardial infarction; I10 Essential (primary) hypertension; E78.5 Hyperlipidemia, unspecified; F17.200 Nicotine dependence, unspecified, uncomplicated; G47.33 Obstructive sleep apnea (adult) (pediatric); M10.9 Gout, unspecified; Y92.9 Unspecified place or not applicable; Y93.9 Activity, unspecified; Y99.9 Unspecified external cause status; E66.9 Obesity, unspecified

== ENCOUNTER → 2021-04-13 | Outpatient (REF) | payer OTHER | LOC: M LAB REF 17:28 | PROVIDERS: ATTEND Internal Medicine Nephrology | DX: I25.5 Ischemic cardiomyopathy (principal); E10.22 Type 1 diabetes mellitus with diabetic chronic kidney disease; E83.42 Hypomagnesemia ==

== ENCOUNTER → 2021-04-17 | Outpatient (REF) | payer OTHER ==
[2021-04-17 17:05] LABS: ALBUMIN 3.5 GM/DL (3.2-5.2); ALT/SGPT 52 U/L (12-78); BILIRUBIN,TOTAL 0.4 MG/DL (0.2-1.0); BLOOD UREA NITROGEN 46 MG/DL (7-18); CALCIUM LEVEL 8.7 MG/DL (8.5-10.1); CARBON DIOXIDE LEVEL 33 MEQ/L (21-32); CHLORIDE LEVEL 103 MEQ/L (98-107); CREATININE FOR GFR 1.34 MG/DL (0.70-1.30); FERRITIN 23 NG/ML (26-388); GLOMERULAR FILTRATION RATE > 60.0 (>60); GLUCOSE, FASTING 209 MG/DL (70-100); IRON (FE) 81 UG/DL (65-175); MAGNESIUM LEVEL 2.3 MG/DL (1.8-2.4); PERCENT SATURATION 25.6 % (19.7-50.0); PHOSPHORUS LEVEL 3.5 MG/DL (2.5-4.9); POTASSIUM SERUM 3.8 MEQ/L (3.5-5.1); SODIUM LEVEL 140 MEQ/L (136-145); TOTAL IRON BINDING CAPACITY 316 UG/DL (250-450); TOTAL PROTEIN 6.4 GM/DL (6.4-8.2)
[2021-04-17 17:08] LABS: BASO # 0.1 10^3/uL (0.0-0.2); BASO % 0.6 % (0.0-1.0); EOS # 0.1 10^3/uL (0.0-0.5); HEMATOCRIT 45.1 % (42.0-52.0); HEMOGLOBIN 14.6 g/dl (13.5-17.5); LYMPH # 1.5 10^3/uL (1.5-5.0); LYMPH % 13.4 % (24.0-44.0); MEAN CORPUSCULAR HEMOGLOBIN 29.7 pg (27.0-33.0); MEAN CORPUSCULAR HGB CONC 32.4 g/dl (32.0-36.5); MEAN CORPUSCULAR VOLUME 91.7 fl (80.0-96.0); MONO # 0.9 10^3/uL (0.0-0.8); NEUTROPHILS # 8.7 10^3/uL (1.5-8.5); NEUTROPHILS % 76.2 % (36.0-66.0); PLATELET COUNT, AUTOMATED 251 10^3/uL (150-450); RED BLOOD COUNT 4.92 10^6/uL (4.30-6.10); WHITE BLOOD COUNT 11.4 10^3/uL (4.0-10.0)
[2021-04-17 17:12] LABS: TOTAL 25(OH) VITAMIN D 33.8 NG/ML (30.0-100.0); VITAMIN B12 LEVEL 1629 PG/ML (247-911)
[2021-04-17 17:14] LABS: HEMATOCRIT 45.1 % (42.0-52.0)
[2021-04-17 21:32] LABS: HEMOGLOBIN A1c 7.6 %
== END ==
LOC: M WUC 15:57
PROVIDERS: ATTEND Surgery
DX: K91.2 Postsurgical malabsorption, not elsewhere classified (principal); Z98.84 Bariatric surgery status; E55.9 Vitamin D deficiency, unspecified; Z86.39 Personal history of other endocrine, nutritional and metabolic disease

== ENCOUNTER 2021-06-22 16:00 | Inpatient (IN) | payer OTHER ==
[~2021-06-22] VITALS: Ht 170.2 cm; Wt 122.5 kg
[~2021-06-22 16:00] MED LIST changes: -KLOR10TA76 PO; +POTA-136 PO
[2021-06-22] MEDS ORDERED: CLIN300C6 (16:09)
[2021-06-22] MEDS ORDERED: FLUTISP (16:09)
[2021-06-22] MEDS ORDERED: METO50TA7 (16:09)
[2021-06-22] MEDS ORDERED: OMEP10CASR PO (16:10)
[2021-06-22] MEDS ORDERED: LYRI150C PO ×2 (16:10→20:06)
[2021-06-22] MEDS ORDERED: VANCOMYCIN HCL 2,000 MG in IV FLUID PLACE HOLDER 1 EA IV ONE (17:15)
[2021-06-22] MEDS ORDERED: VANCOMYCIN HCL 1,000 MG, VIAL MATE ADAPTER 1 EACH in NS 250 ML IV ONE ×2 (17:30→18:30)
[2021-06-22 17:43] LABS: BASO % 0.2 % (0.0-1.0); EOS # 0.1 10^3/uL (0.0-0.5); EOS % 1.1 % (0.0-3.0); HEMATOCRIT 38.3 % (42.0-52.0); HEMOGLOBIN 12.7 g/dl (13.5-17.5); LYMPH # 1.1 10^3/uL (1.5-5.0); LYMPH % 7.9 % (24.0-44.0); MEAN CORPUSCULAR HEMOGLOBIN 29.4 pg (27.0-33.0); MEAN CORPUSCULAR HGB CONC 33.2 g/dl (32.0-36.5); MEAN CORPUSCULAR VOLUME 88.7 fl (80.0-96.0); MONO # 1.1 10^3/uL (0.0-0.8); MONO % 8.1 % (2.0-8.0); NEUTROPHILS # 10.9 10^3/uL (1.5-8.5); NEUTROPHILS % 82.1 % (36.0-66.0); PLATELET COUNT, AUTOMATED 283 10^3/uL (150-450); RED BLOOD COUNT 4.32 10^6/uL (4.30-6.10); WHITE BLOOD COUNT 13.3 10^3/uL (4.0-10.0)
[2021-06-22 17:58] LABS: ALBUMIN 2.3 GM/DL (3.2-5.2); BILIRUBIN,DIRECT 0.1 MG/DL (0.0-0.2); BILIRUBIN,TOTAL 0.3 MG/DL (0.2-1.0); C REACTIVE PROTEIN QUANTITATIV 15.9 MG/DL (0.00-0.30); CALCIUM LEVEL 8.9 MG/DL (8.5-10.1); CREATININE FOR GFR 1.83 MG/DL (0.70-1.30); GLOMERULAR FILTRATION RATE 42.6 (>60); TOTAL PROTEIN 6.1 GM/DL (6.4-8.2)
--- NOTE | 2021-06-22 18:00 | REP ---
INDICATION: R/O DVT COMPARISON: None. TECHNIQUE: Sheikh scale and color Doppler evaluation using linear high frequency transducer. FINDINGS: Ultrasound examination of the left lower extremity deep venous structures from the common femoral vein through the popliteal vein including duplicated mid femoral vein demonstrate normal compressibility flow and wave patterns in response to respiration and augmentation. There is no evidence for deep venous thrombosis. Contralateral CFV is patent and normal. Calf veins could not be evaluated due to edema. IMPRESSION: No evidence for deep venous thrombosis. <Electronically signed by Lawrence Torres > 06/22/21 [id number]
[2021-06-22 18:05] LABS: ERYTHROCYTE SEDIMENTATION RATE 79 mm/hr (0-15)
[2021-06-22] MEDS ORDERED: NS 1,000 ML IV ONE (18:40)
[2021-06-22] MEDS ORDERED: GLUCOSE 4GM CHEW TABLET PO PRN (18:50)
[2021-06-22] MEDS ORDERED: ACETAMINOPHEN TAB 650MG DOSE (2X325MG) PO PRN (18:50)
[2021-06-22] MEDS ORDERED: DEXTROSE 50% 50 ML SYRINGE IV PRN (18:50)
[2021-06-22] MEDS ORDERED: GLUCAGON INJ 1MG VIAL SC PRN (18:50)
[2021-06-22] MEDS ORDERED: CYAN100049 PO (20:06)
[2021-06-22] MEDS ORDERED: TOUJ1.2I SC (20:06)
[2021-06-22] MEDS ORDERED: VITMTA PO (20:06)
[2021-06-22] MEDS ORDERED: KETO2CR TOP (20:06)
[2021-06-22] MEDS ORDERED: FLUT15.820 NARES (20:06)
[2021-06-22] MEDS ORDERED: METO25TA PO (20:06)
[2021-06-22] MEDS ORDERED: BUME2TAB3 PO (20:06)
[2021-06-22] MEDS ORDERED: DULO30CA9 PO (20:06)
[2021-06-22] MEDS ORDERED: POTA10TA17 PO (20:06)
[2021-06-22] MEDS ORDERED: OMEP-221 PO (20:06)
[2021-06-22] MEDS ORDERED: INSUHUMDS SC (20:06)
[2021-06-22] MEDS ORDERED: LOSA25TA14 PO (20:06)
[2021-06-22] MEDS ORDERED: CETI-24 PO (20:06)
[2021-06-22] MEDS ORDERED: FENO145T7 PO (20:06)
[2021-06-22] MEDS ORDERED: D31000TA2 PO (20:06)
[2021-06-22] MEDS ORDERED: ROSU20TA5 PO (20:06)
[2021-06-22] MEDS ORDERED: ALLO300T2 PO (20:06)
[2021-06-22] MEDS ORDERED: ASPI81TA26 PO (20:06)
[2021-06-22] MEDS ORDERED: HOME MED LIST COMPLETE! XX SCH (20:10)
[2021-06-22 20:49] LABS: URIC ACID 7.3 MG/DL (3.5-7.2)
[2021-06-22] MEDS: LEVEMIR (INSULIN DETEMIR) 1 UNITS/0.01ML SC SCH (21:00)
[2021-06-22] MEDS ORDERED: HumaLOG INSULIN (NovoLOG) PER UNIT SC SCH (21:00)
--- NOTE | 2021-06-22 21:31 | HPEPDOC ---
General Date of Admission Jun 22, 2021 at 18:46 Date of Service: Jun 22, 2021 Chief Complaint lower extremity pain. Source: Patient History of Present Illness Rnoey Cui is a 45-year-old male with significant medical history of CAD, AK, CABG, CHF, hypertension, neuropathy, CKD, gout, diabetes and obesity status post gastric bypass 2019 who presents with left lower extremity pain. 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 He noticed on sat that he had some redness and discomfort to the left foot and thus he thought it may be his gout flaring up and he attempted some colchicine for 2 days but as it did not improve he went to [facility] as his PCP cannot see him until Saturday. Patient reports he was given clindamycin plan for wound care clinic on July 07. 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 As the redness swelling and pain increased to climb up his leg -he kept his appointment with his PCP who recommended to give Clinda further time. Patient then proceeded to work Saturday which he reports aggravated his left lower leg further. Today, patient reports that the redness and swelling had worsened to the point that the redness is up towards his thigh and he is having pain with walking requiring to use his old cane from when he was fresh postop cabg/ gastric bypass last year. Patient [facility] back [facility] for further recommendations or antibiotic change and they recommended he come to ER. Patient afebrile, normotensive not tachycardic or tachypneic. He denies systemic complaints and vocalizes moderate left lower extremity throbbing pain worse with ambulation or pressure on the bottom of the foot. There is a known diabetic ulcer to the left lateral aspect around the fifth little toe that does have some questionable discharge. The left lower extremity is red hot and exquisitely tender to the dorsal side of foot. There is noticeable swelling left lower extremity greater than baseline right lower extremity. Of note, vascular ultrasound negative for DVT. Patient did vocalize that he had x-ray of his foot without issues at well now several days ago but given escalation of symptoms will obtain x-ray for interval check. Initial lab results patient with leukocytosis, but no lactic acidosis. Patient will be admitted for further evaluation management presenting concerns. Home Medications Scheduled Aspirin (Aspirin EC) 81 Mg Tablet.dr, 81 MG PO DAILY, (Reported) Bumetanide (Bumetanide) 2 Mg Tablet, 4 MG PO BID, (Reported) Cetirizine HCl (Cetirizine HCl) 10 Mg Tablet, 10 MG PO DAILY, (Reported) Cholecalciferol (Vitamin D3) (Vitamin D3) 1,000 Unit Tablet, 1,000 UNITS PO QHS, (Reported) Cyanocobalamin (Vitamin B-12) (Vitamin B-12) 1,000 Mcg Tablet, 1,000 MCG PO DAILY, (Reported) Duloxetine Hcl (Duloxetine HCl) 30 Mg Capsule.dr, 90 MG PO DAILY, (Reported) Fenofibrate Nanocrystallized (Fenofibrate) 145 Mg Tablet, 145 MG PO DAILY, (Reported) Fluticasone Propionate (Fluticasone Propionate) 15.8 Ml Libby.susp, 1 SPRAY NARES DAILY, (Reported) Insulin Glargine,Hum.rec.anlog (Toujeo Solostar) 300 Unit/1 Ml Insuln.pen, 40 UNIT SC QHS, (Reported) Insulin Human Lispro (Humalog) 100 Unit/1 Ml Vial, 1 DOSE SC ASDIRECTED, (Reported) VIA INSULIN PUMP Ketoconazole (Ketoconazole) 15 Gm Cream..g., 1 APLCT TOP BID, (Reported) APPLIES TO BOTH LEGS Losartan Potassium (Losartan Potassium) 25 Mg Tablet, 25 MG PO DAILY, (Reported) Metolazone (Metolazone) 2.5 Mg Tablet, 2.5 MG PO DAILY, (Reported) Multivitamins (Thera M Plus Tablet) 1 Each Tablet, 1 TAB PO DAILY, (Reported) Omeprazole (Omeprazole) 40 Mg Capsule.dr, 40 MG PO DAILY, (Reported) Potassium Chloride (Potassium Chloride) 10 Meq Tab.er.prt, 10 MEQ PO BID, (Reported) Pregabalin (Lyrica) 150 Mg Capsule, 150 MG PO BID, (Reported) Rosuvastatin Calcium (Rosuvastatin Calcium) 20 Mg Tablet, 20 MG PO DAILY, (Reported) allopurinoL (allopurinoL) 300 Mg Tablet, 600 MG PO DAILY, (Reported) Allergies Coded Allergies: lisinopril (Verified Allergy, Unknown, 08/11/19) Past Medical History Medical History CAD, AK, CHF, hypertension, neuropathy, CKD, gout, diabetes, obesity, GI bleed, PVD, OA, ARUN with CPAP, glaucoma, low back pain Surgical History CABG, gastric bypass, appendectomy Family History Significant Family History: Cancer, Diabetes, Hypertension Fathercancer and diabetes, motherdiabetes and hypertension, daughterasthma Social History * Smoker: current smoker (1.5packs/day) Alcohol: Denies Drugs: denies Recent Travel/Sick Contacts: Denies: Recent travel, Recent sick contacts Psychosocial History: No pertinent psych hx Patient reports that he lives with girlfriend. Patient works at [employer]. Does get appointments cardiology rheumat[facility] and [facility] A-FIB/CHADSVASC A-FIB History Current/History of A-Fib/PAF?: No Current PO Anticoag Therapy: No Review of Systems Constitutional: Denies: Chills, Fever, Night Sweats Eyes: Denies: Pain, Vision change ENT: Denies: Head Aches, Ear Pain, Dysphagia Skin: Reports: Dry, Other (Ulcer left lateral foot, + erythema); Denies: Rash, Lesions, Breakdown Pulmonary: Denies: Dyspnea, Cough Cardiovascular: Denies: Chest Pain, Palpitations, Orthopnea, Paroxysmal Noc. Dyspnea, Lt Headedness Gastrointestinal: Denies: Nausea, Vomiting, Abdominal Pain, Diarrhea Genitourinary: Denies: Dysuria, Frequency, Incontinence, Retention Hematologic: Denies: Bruising, Bleeding Excessively Musculoskeletal: Reports: Leg Pain, Foot Pain; Denies: Neck Pain, Back Pain, Joint Pain, Muscle Pain, Spasms Neurological: Denies: Weakness, Numbness, Change in speech, Confusion Psych: Reports: Mood Normal; Denies: Depression, Memory Issues Physical Examination General Exam: Positive: Alert, Cooperative, No Acute Distress, Other (+ Body habitus obesity) Eye Exam: Positive: PERRLA, Conjunctiva & lids normal, EOMI; Negative: Sclera icteric ENT Exam: Positive: Atraumatic, Mucous membr. moist/pink, Pharynx Normal Neck Exam: Positive: Supple; Negative: JVD, thyromegaly Chest Exam: Positive: Clear to auscultation, Normal air movement Heart Exam: Positive: Rate Normal, Regular Rhythm, Normal S1, Normal S2; Negative: Murmurs, Rubs Telemetry: Positive: No significant arrhythmia Abdomen Exam: Positive: Normal bowel sounds, Soft; Negative: Tenderness, Hepatospenomegaly Extremity Exam: Positive: Edema, Normal pulses, Tenderness, Swelling; Negative: Clubbing, Cyanosis Skin Exam: Positive: Nl turgor and temperature, Breakdown, Other skin issue (+ Erythema); Negative: Lesion Neuro Exam: Positive: Normal Gait, Normal Speech, Cranial Nerves 3-12 NL, Reflexes 2+ Psych Exam: Positive: Mental status NL, Mood NL, Oriented x 3 Other physical findings Notable hyperpigmentation of right lower extremity consistent with PVD; notable scarring of healed stasis ulcer Vital Signs Vital Signs Date Time Temp Pulse Resp B/P (MAP) Pulse Ox O2 Delivery O2 Flow Rate FiO2 06/22/21 16:00 96.4 86 16 168/81 (110) 97 Room Air Laboratory Data Labs 24H Laboratory Tests 2 06/22/21 17:17: Immature Granulocyte % (Auto) 0.6, Neutrophils (%) (Auto) 82.1H, Lymphocytes (%) (Auto) 7.9L, Monocytes (%) (Auto) 8.1H, Eosinophils (%) (Auto) 1.1, Basophils (%) (Auto) 0.2, Neutrophils # (Auto) 10.9H, Lymphocytes # (Auto) 1.1L, Monocytes # (Auto) 1.1H, Eosinophils # (Auto) 0.1, Basophils # (Auto) 0.0, Nucleated Red Blood Cells % (auto) 0.0, Erythrocyte Sedimentation Rate 79H, Anion Gap 8, Glomerular Filtration Rate 42.6L, Lactic Acid Level 1.2, Calcium Level 8.9, Total Bilirubin 0.3, Direct Bilirubin 0.1, Aspartate Amino Transf (AST/SGOT) 25, Alanine Aminotransferase (ALT/SGPT) 38, Alkaline Phosphatase 175H, C-Reactive Protein, Quantitative 15.90H, Total Protein 6.1L, Albumin 2.3L, Albumin/Globulin Ratio 0.6 CBC/BMP Laboratory Tests 06/22/21 17:17 Microbiology Microbiology 06/22/21 Blood Culture, Received Pending 06/22/21 Blood Culture, Received Pending Assessment/Plan 1. Cellulitis left lower extremity with diabetic ulcer left foot: -X-ray left foot pending -Monitor for signs symptoms worsening infection: abby margins of erythema, all cultures have been sent -Empiric coverage-will cover with Vanc -Symptomatic/supportive care: elevate extremity -Analgesics as needed. -A.m. labs, will check uric acid in a.m. -Appreciate WOCN in AM; patient may benefit from wound care consult for debridement prior to his outpatient appointment on the 2. PILI on CKD: In setting of recent gout medication-patient last took Saturday. Creat increase 1.3 to 1.8 -Monitor fluid balance, I's and O's, urinary output -Patient received minimal hydration in ED given his history of heart failure -Avoid nephrotoxins as able; allopurinol and ARB held presently-restart pending a.m. creat -A.m. labs -Consider nephrology consult pending patient response 3. Chronic DHF: Last echo 2019 LVEF 65% -Monitor fluid balance, I's and O's, urinary output -Patient appears euvolemic -We will continue home medications Bumetanide and Zaroxolyn -monitoring creat closely -A.m. labs 4 Diabetes: -Check A1c. -Monitor patient blood glucose ACHS. -Patient has his own insulin pump, will allow patient to continue with monitoring per policy guideline-his blood glucose upon arrival 208. -Will adjust his long-acting Toujeo to formulary to continue tonight. -A.m. labs. -Should patient be with any poor control of blood sugars would swap to sliding scale insulin and patient aware and verbalizes agreement with plan. 5. CAD: Continue with aspirin and statin 6. HTN: Monitor BP in setting of infection. ARB presently held given PILI. Did continue metoprolol. Consider as needed coverage for systolic blood pressure greater than 170. Likely restart ARB tomorrow pending a.m. BMP 7. Neuropathy/back pain: Continue home medications 8. Class 3Obesity: Complicates care DVT prophylaxis: Sampson score 5. Given elevated creatinine will opt for Heparin subcu. Plan to monitor for s/s bleeding; Patient reports that when he had vancomycin during another hospital admission in the past at another health facility he was being treated with blood thinners at the time and with vancomycin he had some thrombocytopenia and with his underlying gastric ulcer he did have some GI bleeding at that time. CBC and differential is ordered for a.m. CODE STATUS: Full code Disposition planning: Home once clinically improved likely 2 midnight stay Plan / VTE VTE Prophylaxis Ordered?: Yes LIZ MZEA NP Jun 22, 2021 19:01 SHANELL STEVENS MD Jun 25, 2021 01:44
--- NOTE | 2021-06-22 21:34 | REPVR ---
PROCEDURE INFORMATION: Exam: XR Left Foot Exam date and time: 06/22/2021 8:40 PM Age: 45 years old Clinical indication: Pain; Foot; Left; Additional info: Diabetic ulcer, cellulitis- osteomyelitis check TECHNIQUE: Imaging protocol: XR Left foot. Views: 1 or 2 views. COMPARISON: CR Foot, complete 11/08/2017 3:06 AM FINDINGS: Bones/joints: Flattening of the 3rd metatarsal head with a subcortical lucency consistent with a focus of osteonecrosis. Bone demineralization in the 2nd, 4th and 5th metatarsal heads without bone destruction. Mild degenerative changes in the hallux metatarsophalangeal joint. Soft tissues: Normal. Vasculature: Atherosclerotic calcifications in the foot arteries consistent with known history of diabetes. IMPRESSION: No evidence of bone destruction. Foci of bone mineralization demonstrated in multiple metatarsal heads may indicate inflammatory changes. 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 If there is a strong index suspicion for osteomyelitis further evaluation with pre and post-contrast MRI suggested. Electronically signed by: Pipo Mcdonald On 06/22/2021 21:34:17 PM
[2021-06-22] MEDS ORDERED: **hydrALAZINE** 10 MG TAB PO PRN (21:40)
[2021-06-22] MEDS ORDERED: POTASSIUM CHLORIDE 10MEQ SR TABLET PO ONE (22:00)
[2021-06-22 22:08] VITALS: BP 143/67
[2021-06-22] MEDS: PERCOCET 5MG/325MG TAB PO PRN (22:33)
[2021-06-22] MEDS: HEPARIN SOD (PORCINE) 5000UNITS/ML 1ML VIAL/SYRINGE SC SCH (22:34)
[2021-06-22] MEDS: METOPROLOL TART 50 MG TAB PO SCH (23:38)
[2021-06-23] MEDS: VANCOMYCIN HCL 1,000 MG, VIAL MATE ADAPTER 1 EACH in NS 250 ML IV SCH ×2 (05:34→18:33)
[2021-06-23] MEDS: HEPARIN SOD (PORCINE) 5000UNITS/ML 1ML VIAL/SYRINGE SC SCH ×4 (05:35→23:07)
[2021-06-23 05:49] LABS: BASO % 0.4 % (0.0-1.0); EOS # 0.2 10^3/uL (0.0-0.5); EOS % 1.7 % (0.0-3.0); HEMATOCRIT 35.6 % (42.0-52.0); HEMOGLOBIN 11.7 g/dl (13.5-17.5); LYMPH % 10.6 % (24.0-44.0); MEAN CORPUSCULAR HEMOGLOBIN 29.5 pg (27.0-33.0); MEAN CORPUSCULAR HGB CONC 32.9 g/dl (32.0-36.5); MEAN CORPUSCULAR VOLUME 89.7 fl (80.0-96.0); MONO % 11.1 % (2.0-8.0); NEUTROPHILS # 7.1 10^3/uL (1.5-8.5); NEUTROPHILS % 75.5 % (36.0-66.0); PLATELET COUNT, AUTOMATED 252 10^3/uL (150-450); RED BLOOD COUNT 3.97 10^6/uL (4.30-6.10); WHITE BLOOD COUNT 9.4 10^3/uL (4.0-10.0)
[2021-06-23 06:00] VITALS: BP 150/78
[2021-06-23 06:18] LABS: CALCIUM LEVEL 8.7 MG/DL (8.5-10.1); CREATININE FOR GFR 1.39 MG/DL (0.70-1.30); GLOMERULAR FILTRATION RATE 58.6 (>60); POTASSIUM SERUM 3.5 MEQ/L (3.5-5.1)
[2021-06-23] MEDS ORDERED: HumaLOG INSULIN (NovoLOG) PER UNIT SC SCH (07:30)
[2021-06-23] MEDS: OMEPRAZOLE 20 MG CAP PO SCH (08:06)
[2021-06-23] MEDS: FENOFIBRATE 145MG TABLET (TRICOR) PO SCH (08:06)
[2021-06-23] MEDS: MULTIVITAMINS/MINERALS THERAP 1 TAB PO SCH (08:06)
[2021-06-23] MEDS: METOPROLOL TART 50 MG TAB PO SCH ×2 (08:06→22:23)
[2021-06-23] MEDS: BUMETANIDE 1 MG TAB PO SCH ×2 (08:07→15:57)
[2021-06-23] MEDS: ROSUVASTATIN 10 MG TAB (CRESTOR) PO SCH (08:07)
[2021-06-23] MEDS: LACTOBACILLUS ACIDOPHILUS CAP (BACID) PO SCH ×2 (08:07→18:33)
[2021-06-23] MEDS: CETIRIZINE (ZyrTEC) 10 MG TAB PO SCH (08:07)
[2021-06-23] MEDS: CYANOCOBALAMIN 500 MCG TAB PO SCH (08:07)
[2021-06-23] MEDS: ASPIRIN 81MG ENTERIC TABLET PO SCH (08:07)
[2021-06-23] MEDS: PREGABALIN 75 MG CAP(LYRICA) PO SCH ×2 (08:07→22:21)
[2021-06-23] MEDS: FLUTICASONE PROP 0.05% NASAL SPRAY 16 GM (FLONASE) NARES SCH (08:07)
[2021-06-23] MEDS: metOLazone 2.5 MG TAB PO SCH (08:27)
[2021-06-23] MEDS ORDERED: LOSARTAN 25 MG TAB PO SCH (09:00)
[2021-06-23 13:43] VITALS: BP 152/69
--- NOTE | 2021-06-23 15:36 | IPNPDOC ---
Text Note Date of Service The patient was seen on 06/23/21. NOTE Subjective: No any acute events overnight. Patient denies fever, chills, nausea vomiting diarrhea dysuria. He stated with he feels better and his left foot pain subsided Objective: GENERAL APPEARANCE: Morbidly obese male HEENT: no scleral icterus, plus JVD, EOMI CARDIOVASCULAR: S1S2 LUNGS: Diminished lung sounds bilaterally ABDOMEN: soft & not tender w palpation MUSCULOSKELETAL: no cyanosis, +2 swelling of lower extremities, erythema of distal part of left leg and foot, keratotic skin changes of both feet, skin changes of both lower extremities consistent with venous stasis INTEGUMENT: no generalized pallor NEUROLOGICAL: cranial nerve function from 2-12 intact, follows commands, speech not dysarthric Assessment plan Patient is 45 years old male with past medical history of CAD, [place], CABG, CHF, hypertension, neuropathy, CKD, gout, diabetes and obesity status post gastric bypass 2020 who presents with left lower extremity pain. Patient was found to have left foot cellulitis spreading to the distal tibial part of left leg Left foot cellulitis Most likely patient has open wounds between his 3, fourth, fifth toes of the left foot. I asked cartographic technician Dr. Baldwin to see him. Patient has significant keratotic changes with possible fungal infection of both feet Continue vancomycin IV, patient failed treatment with clindamycin p.o. in the outpatient settings X-ray showed No evidence of bone destruction. Foci of bone mineralization demonstrated in multiple metatarsal heads may indicate inflammatory changes. 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 If there is a strong index suspicion for osteomyelitis further evaluation with pre and post-contrast MRI suggested. We will proceed with left foot MRI Pain management Leg elevation Chronic kidney disease stage III Creatinine at baseline Continue to monitor Chronic diastolic CHF: Not in acute exacerbation Last echo 2019 LVEF 65% Monitor fluid balance, I's and O's, urinary output Continue home meds Coronary artery disease No any acute chest pain reported Continue home meds Hypertension Continue home meds blood pressure under control Type 2 diabetes Patient has insulin pump Glucose level under control Neuropathy/back pain: Continue home medications Obesity: BMI 42.3 Complicates care Gout Continue allopurinol Obstructive sleep apnea Patient may use his own CPAP DVT prophylaxis with heparin 3 times daily VS,Fishbone, I+O VS, Fishbone, I+O Laboratory Tests 06/22/21 17:17 06/23/21 05:31 Vital Signs Date Time Temp Pulse Resp B/P (MAP) Pulse Ox O2 Delivery O2 Flow Rate FiO2 06/23/21 13:43 98.5 68 18 152/69 (96) 95 Room Air I&O- Last 24 Hours up to 6 AM 06/23/21 06:00 Intake Total 870 ml Output Total 1525 ml Balance -655 ml ALEXANDRIA CODY DO Jun 23, 2021 15:36
[2021-06-23] MEDS: VANICREAM MOISTURIZING SKIN CREAM 113GM TUBE TOP SCH ×3 (15:43→22:23)
[2021-06-23] MEDS: DULoxetine 30MG CAPSULE (CYMBALTA) PO SCH (15:57)
[2021-06-23 16:29] LABS: HEMOGLOBIN A1c 8.1 %
--- NOTE | 2021-06-23 18:55 | CR ---
CONSULTATION DATE: 06/23/2021 REASON FOR CONSULTATION: Left foot ulceration infection. HISTORY OF PRESENT ILLNESS: Roney Cui is a 45-year-old male who was admitted on June 22, 2021, with worsening left foot. He has a chronic ulceration. He has a drain tile press operator he sees in [place], who has been following the wound. However, it has gotten worse, with more redness and swelling. He has been started on empiric antibiotics. PAST MEDICAL HISTORY: Significant for: 1. Coronary artery disease. 2. History of myocardial infarction ([place]). 3. Congestive heart failure. 4. Hypertension. 5. Diabetes with neuropathy. 6. Chronic kidney disease. 7. Gout. 8. Obesity. 9. Peripheral vascular disease. 10. Obstructive sleep apnea. PAST SURGICAL HISTORY: Includes: 1. Coronary artery bypass graft (CABG). 2. Gastric bypass. 3. Appendectomy. SOCIAL HISTORY: Current smoker, 1.5 packs per day. He denies alcohol or other drug use. REVIEW OF SYSTEMS: He denies nausea, vomiting, fevers or chills. PHYSICAL EXAMINATION: VITAL SIGNS: He has been afebrile. LOWER EXTREMITY EXAMINATION: There is erythema and edema of the left lower extremity. There is an ulceration on the plantar lateral aspect of the fifth metatarsal with purulent drainage. LABORATORY DATA: White blood cell count on admission was 13.3; today it is 9.4. Erythrocyte sedimentation rate (ESR) on admission was 79. C-reactive protein (CRP) on admission 15.9. Hemoglobin A1C was 8.1. IMAGING DATA: X-rays were negative for obvious osteomyelitis. ASSESSMENT: This is a 45-year-old diabetic male with diabetic ulceration, infection and abscess. PLAN: Patient to be nothing by mouth (NPO) at midnight. Will plan for incision and drainage of foot tomorrow.
[2021-06-23 22:00] VITALS: BP 131/66
[2021-06-23] MEDS: VITAMIN D 1,000 INTERNATIONAL UNITS TABLET PO SCH (22:22)
[2021-06-23] MEDS: POTASSIUM CHLORIDE 10MEQ SR TABLET PO SCH (22:22)
[2021-06-23] MEDS: LEVEMIR (INSULIN DETEMIR) 1 UNITS/0.01ML SC SCH (22:22)
--- NOTE | 2021-06-23 22:34 | REPVR ---
PROCEDURE INFORMATION: Exam: MR Left Lower Extremity Other Than Joint Without Contrast; Foot Exam date and time: 06/23/2021 9:23 PM Age: 45 years old Clinical indication: Diabetic ulcer and cellulitis. Evaluate for osteomyelitis in the left foot. TECHNIQUE: Imaging protocol: MR of the Left lower extremity without contrast. Exam focused on the foot. COMPARISON: CR Foot, Ap, Lat LEFT 06/22/2021 8:30 PM FINDINGS: Limitations: There is inhomogeneous fat saturation in the left 2nd through 5th toes in the axial T2 and coronal T2 with fat saturation series. Bones and cartilage: There is a subchondral fracture line with surrounding bone marrow edema in the head of the left 3rd metatarsal, which is compatible with a Freiberg infraction. There is bone marrow edema in the lateral aspect of the head of the left 5th metatarsal and proximal middle phalanges of the left 5th toe, but without any associated confluent decreased T1 signal or bony destructive changes. The rest of the bones in the left foot are intact. There is mild osteoarthritis of the left 1st metatarsophalangeal joint. Joint spaces: There are left tibiotalar and subtalar joint effusions. LIGAMENTS: Distal tibiofibular syndesmosis: The distal tibiofibular syndesmosis is intact. Anterior talofibular ligament: The anterior talofibular ligament is intact. Posterior talofibular ligament: The posterior talofibular ligament is intact. Calcaneofibular ligament: The calcaneofibular ligament is intact. Deltoid ligament complex: The deltoid ligament complex is intact. Spring ligament complex: The spring ligament complex is intact. Lisfranc ligament: The Lisfranc ligament is intact. Collateral ligaments of digits: The collateral ligaments of the toes are intact. TENDONS: Flexor tendons of foot: The flexor tendons are intact. No tendinosis. There is fluid in the flexor hallucis longus and flexor digitorum longus tendon sheaths. Tibialis posterior tendon: The tibialis posterior tendon is intact. There is fluid in the tibialis posterior tendon sheath. Peroneal tendons: There is a longitudinal tear involving the left peroneus brevis tendon extending from the level below the lateral malleolus to its insertion. There is moderate tendinosis involving the left peroneus longus tendon. There is fluid in the peroneus brevis and longus tendon sheaths. Extensor tendons of foot: The extensor tendons are intact. No tendinosis. No tenosynovitis. Tibialis anterior tendon: The tibialis anterior tendon is intact. No tendinosis. No tenosynovitis. Achilles tendon: The Achilles tendon is intact. Tarsal canal (Sinus tarsi): The roots of the inferior extensor retinaculum, cervical ligament, and interosseous talocalcaneal ligament are intact. 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 Tarsal tunnel: The tarsal tunnel is unremarkable. Muscles: There is mildly increased T2 signal diffusely in the muscles of the left foot. Soft tissues: There is a soft tissue ulcer along the lateral aspect of the left 5th metatarsophalangeal joint. There is a 0.9 cm x 4.1 cm x 0.7 cm soft tissue fluid collection dorsal to the head and neck of the left 5th metatarsal and proximal phalanx of the left 5th toe. There is soft tissue swelling and edema along the medial and lateral aspect of the left ankle, dorsal aspect of the left midfoot and forefoot, and in the left 2nd through 5th toes. No obvious soft tissue gas is identified. Plantar fascia: The plantar fascia is intact. No evidence for plantar fasciitis or plantar fibromatosis. IMPRESSION: 1. Bone marrow edema in the lateral aspect of the head of the left 5th metatarsal and proximal middle phalanges of the left 5th toe, which may represent osteomyelitis or reactive osteitis. 2. 0.9 cm x 4.1 cm x 0.7 cm soft tissue fluid collection dorsal to the head and neck of the left 5th metatarsal and proximal phalanx of the left 5th toe, which may represent an abscess. 3. Soft tissue ulcer along the lateral aspect of the left 5th metatarsophalangeal joint. 4. Soft tissue swelling and edema along the medial and lateral aspect of the left ankle, dorsal aspect of the left midfoot and forefoot, and in the left 2nd through 5th toes, which is compatible with cellulitis. 5. 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 6. Longitudinal tear involving the left peroneus brevis tendon extending from the level below the lateral malleolus to its insertion. 7. Moderate tendinosis involving the left peroneus longus tendon. Electronically signed by: Lionel Ga On 06/23/2021 22:33:45 PM
[2021-06-24] MEDS: VANCOMYCIN HCL 1,000 MG, VIAL MATE ADAPTER 1 EACH in NS 250 ML IV SCH ×2 (05:50→17:59)
[2021-06-24 06:00] VITALS: BP 152/75
[2021-06-24] MEDS ORDERED: LIDOCAINE 1% MDV 20ML VIAL As Ordered ONE (07:47)
[2021-06-24] MEDS ORDERED: BUPIVACAINE HCL 0.5% 10ML VIAL As Ordered ONE (07:48)
[2021-06-24] MEDS ORDERED: propofoL 200 MG/20 ML VIAL As Ordered ONE ×2 (07:49→08:49)
[2021-06-24] MEDS ORDERED: LIDOCAINE 2% 100MG/5ML SDV (FOR ANES.) As Ordered ONE (07:49)
[2021-06-24] MEDS ORDERED: MIDAZOLAM INJ 2MG/2ML VIAL (J2250 PER 1MG) As Ordered ONE (07:50)
[2021-06-24] MEDS ORDERED: dexameTHASONE 4 MG/ML 1ML VIAL (J1100 PER 1MG) As Ordered ONE (07:50)
[2021-06-24] MEDS ORDERED: fentaNYL 100 MCG/2 ML INJECTION (J3010) As Ordered ONE (07:50)
[2021-06-24] MEDS ORDERED: ONDANSETRON 4MG/2ML VIAL As Ordered ONE (07:50)
[2021-06-24 08:20] LABS: BASO # 0.1 10^3/uL (0.0-0.2); BASO % 0.5 % (0.0-1.0); EOS # 0.2 10^3/uL (0.0-0.5); HEMATOCRIT 38.3 % (42.0-52.0); HEMOGLOBIN 12.5 g/dl (13.5-17.5); LYMPH # 1.3 10^3/uL (1.5-5.0); LYMPH % 13.4 % (24.0-44.0); MEAN CORPUSCULAR HEMOGLOBIN 29.4 pg (27.0-33.0); MEAN CORPUSCULAR HGB CONC 32.6 g/dl (32.0-36.5); MEAN CORPUSCULAR VOLUME 90.1 fl (80.0-96.0); MONO # 0.9 10^3/uL (0.0-0.8); MONO % 9.5 % (2.0-8.0); NEUTROPHILS # 7.1 10^3/uL (1.5-8.5); NEUTROPHILS % 73.7 % (36.0-66.0); PLATELET COUNT, AUTOMATED 276 10^3/uL (150-450); RED BLOOD COUNT 4.25 10^6/uL (4.30-6.10); WHITE BLOOD COUNT 9.7 10^3/uL (4.0-10.0)
[2021-06-24 08:51] LABS: ALT/SGPT 42 U/L (12-78); BILIRUBIN,TOTAL 0.2 MG/DL (0.2-1.0); BLOOD UREA NITROGEN 46 MG/DL (7-18); CALCIUM LEVEL 8.9 MG/DL (8.5-10.1); CARBON DIOXIDE LEVEL 29 MEQ/L (21-32); CHLORIDE LEVEL 114 MEQ/L (98-107); CREATININE FOR GFR 1.16 MG/DL (0.70-1.30); GLOMERULAR FILTRATION RATE > 60.0 (>60); GLUCOSE, FASTING 106 MG/DL (70-100); POTASSIUM SERUM 3.3 MEQ/L (3.5-5.1); SODIUM LEVEL 147 MEQ/L (136-145); TOTAL PROTEIN 5.5 GM/DL (6.4-8.2)
--- NOTE | 2021-06-24 09:53 | RO ---
OPERATIVE NOTE DATE OF OPERATION: 06/24/2021 PREOPERATIVE DIAGNOSIS: Left foot infection. POSTOPERATIVE DIAGNOSIS: Left foot infection. PROCEDURE: Left foot 5th metatarsal head excision and incision and drainage. SURGEON: Drew Monroy DPM DIRECTOR CONTENT MARKETING: None. ANESTHESIA: Monitored anesthesia care, preop injection of 20 mL of 1:1 mix of 1% Lidocaine plain and 0.5% Marcaine plain. ESTIMATED BLOOD LOSS: Minimal. MATERIALS: 3-0 nylon. INJECTABLES: None. COMPLICATIONS: None. SPECIMEN: Left 5th metatarsal head. INDICATIONS: This is a 45-year-old diabetic male who was admitted due to left foot infection. He has longstanding ulceration for the past four months to his left foot. He had worsening redness and swelling to his foot and leg and he was admitted for this on June 22. An MRI was performed yesterday and showed findings suspicious for osteomyelitis of the 5th metatarsal head and toe. Patient site and side were identified and marked in preoperative area. Consent was reviewed and obtained. All risks, complications, and alternatives to the procedure were explained to the patient in detail, and all questions were answered. DESCRIPTION OF PROCEDURE: The patient was brought to the operating room and placed on stretcher in supine position. Monitored anesthesia care was delivered by the anesthesia team. Preop injection of 20 mL of 1:1 mixture of 1% Lidocaine plain and 0.5% Marcaine plain was delivered to the left foot. Left foot was prepped and draped in usual sterile fashion. Tourniquet was applied to the left ankle and inflated to 250 mmHg. Wound was noted to be under the plantar aspect of the 5th metatarsal head. When probed there was significant purulence. Culture swabs, aerobic and anaerobic, were taken of this purulent drainage. Incision was made along the lateral aspect of the 5th metatarsal head. There was purulent and necrotic tissue circumferentially around the 5th metatarsal and base of the proximal phalanx. This was debrided. There was purulence in the joint and when looking at the proximal phalanx there were erosive changes consistent with osteomyelitis. Using a sagittal saw the metatarsal head was excised and the base of the proximal phalanx of the 5th toe was removed with rongeur. Other nonviable tissue was removed. Site was irrigated with normal saline. Partial closure was performed with 3-0 nylon. Sterile dressings were applied. Tourniquet was deflated. The patient was brought to PACU with vital signs stable and neurovascular status intact. He will be readmitted to the floor for continued antibiotics and monitoring.
[2021-06-24] MEDS ORDERED: fentaNYL 100 MCG/2 ML INJECTION (J3010) IV PRN (09:55)
[2021-06-24] MEDS ORDERED: NS 1,000 ML IV SCH (09:55)
[2021-06-24] MEDS ORDERED: METOCLOPRAMIDE INJ 10MG/2ML VIAL (J2765 PER 1) IV PRN (09:55)
[2021-06-24] MEDS ORDERED: PERCOCET 5MG/325MG TAB PO PRN (09:55)
[2021-06-24] MEDS ORDERED: ONDANSETRON 4MG/2ML VIAL IV PRN (09:55)
[2021-06-24 10:00] VITALS: BP 144/73
[2021-06-24] MEDS: DULoxetine 30MG CAPSULE (CYMBALTA) PO SCH (10:02)
[2021-06-24] MEDS: ROSUVASTATIN 10 MG TAB (CRESTOR) PO SCH (10:02)
[2021-06-24] MEDS: LACTOBACILLUS ACIDOPHILUS CAP (BACID) PO SCH ×2 (10:03→17:58)
[2021-06-24] MEDS: LOSARTAN 50MG TABLET PO SCH (10:03)
[2021-06-24] MEDS: OMEPRAZOLE 20 MG CAP PO SCH (10:03)
[2021-06-24] MEDS: MULTIVITAMINS/MINERALS THERAP 1 TAB PO SCH (10:03)
[2021-06-24] MEDS: FENOFIBRATE 145MG TABLET (TRICOR) PO SCH (10:03)
[2021-06-24] MEDS: PREGABALIN 75 MG CAP(LYRICA) PO SCH ×2 (10:03→21:19)
[2021-06-24] MEDS: BUMETANIDE 1 MG TAB PO SCH ×2 (10:03→17:58)
[2021-06-24] MEDS: allopurinoL 300 MG TAB PO SCH (10:04)
[2021-06-24] MEDS: CYANOCOBALAMIN 500 MCG TAB PO SCH (10:04)
[2021-06-24] MEDS: CETIRIZINE (ZyrTEC) 10 MG TAB PO SCH (10:04)
[2021-06-24] MEDS: ASPIRIN 81MG ENTERIC TABLET PO SCH (10:04)
[2021-06-24] MEDS: METOPROLOL TART 50 MG TAB PO SCH ×2 (10:04→21:21)
[2021-06-24] MEDS: cefTRIAXone SOD 2 GM in D5W MINI-BAG PLUS 50 ML IV SCH (10:05)
[2021-06-24] MEDS: FLUTICASONE PROP 0.05% NASAL SPRAY 16 GM (FLONASE) NARES SCH (10:05)
[2021-06-24] MEDS: POTASSIUM CHLORIDE 10MEQ SR TABLET PO SCH ×2 (10:05→21:20)
[2021-06-24] MEDS: metOLazone 2.5 MG TAB PO SCH (10:05)
[2021-06-24] MEDS: VANICREAM MOISTURIZING SKIN CREAM 113GM TUBE TOP SCH ×3 (10:09→21:23)
[2021-06-24 14:00] VITALS: BP 146/70
--- NOTE | 2021-06-24 14:48 | IPNPDOC ---
Text Note Date of Service The patient was seen on 06/24/21. NOTE Subjective: No any acute events overnight. Patient stated that he feels better. Debridement was done today patient tolerated procedure well Objective: GENERAL APPEARANCE: Morbidly obese male HEENT: no scleral icterus, plus JVD, EOMI CARDIOVASCULAR: S1S2 LUNGS: Diminished lung sounds bilaterally ABDOMEN: soft & not tender w palpation MUSCULOSKELETAL: no cyanosis, +2 swelling of lower extremities, erythema of distal part of left leg and foot, keratotic skin changes of both feet, skin changes of both lower extremities consistent with venous stasis INTEGUMENT: no generalized pallor NEUROLOGICAL: cranial nerve function from 2-12 intact, follows commands, speech not dysarthric Assessment plan Patient is 45 years old male with past medical history of CAD, [place], CABG, CHF, hypertension, neuropathy, CKD, gout, diabetes and obesity status post gastric bypass 2019 who presents with left lower extremity pain. Patient was found to have left foot cellulitis spreading to the distal tibial part of left leg Left foot cellulitis/left foot osteomyelitis Most likely patient has open wounds between his 3, fourth, fifth toes of the left foot. I asked real estate branch manager Dr. Baldwin to see him. Patient has significant keratotic changes with possible fungal infection of both feet Continue vancomycin IV, patient failed treatment with clindamycin p.o. in the outpatient settings X-ray showed No evidence of bone destruction. Foci of bone mineralization demonstrated in multiple metatarsal heads may indicate inflammatory changes. 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 If there is a strong index suspicion for osteomyelitis further evaluation with pre and post-contrast MRI suggested. MRI showed Bone marrow edema in the lateral aspect of the head of the left 5th metatarsal and proximal middle phalanges of the left 5th toe, which may represent osteomyelitis or reactive osteitis. 2. 0.9 cm x 4.1 cm x 0.7 cm soft tissue fluid collection dorsal to the head and neck of the left 5th metatarsal and proximal phalanx of the left 5th toe, which may represent an abscess. Debridement was done today I added ceftriaxone IV to his medical regimen day 2 of antibiotic therapy Pain management Leg elevation Chronic kidney disease stage III Creatinine at baseline Improved Continue to monitor Chronic diastolic CHF: Not in acute exacerbation Last echo 2018 LVEF 65% Monitor fluid balance, I's and O's, urinary output Continue home meds Coronary artery disease No any acute chest pain reported Continue home meds Hypertension Continue home meds blood pressure under control Type 2 diabetes Patient has insulin pump Glucose level under control Neuropathy/back pain: Continue home medications Obesity: BMI 42.3 Complicates care Gout Continue allopurinol Obstructive sleep apnea Patient may use his own CPAP DVT prophylaxis with heparin 3 times daily VS,Fishbone, I+O VS, Fishbone, I+O Laboratory Tests 06/24/21 07:45 Vital Signs Date Time Temp Pulse Resp B/P (MAP) Pulse Ox O2 Delivery O2 Flow Rate FiO2 06/24/21 10:00 97.4 68 17 144/73 (96) 95 Room Air I&O- Last 24 Hours up to 6 AM 06/24/21 05:59 Intake Total 2040 ml Output Total 525 ml Balance 1515 ml ALEXANDRIA CODY DO Jun 24, 2021 14:48
[2021-06-24] MEDS: PERCOCET 5MG/325MG TAB PO PRN (14:55)
[2021-06-24] MEDS: HEPARIN SOD (PORCINE) 5000UNITS/ML 1ML VIAL/SYRINGE SC SCH ×2 (14:55→21:21)
[2021-06-24] MEDS ORDERED: POTASSIUM CHLORIDE 10MEQ SR TABLET PO ONE (15:00)
[2021-06-24] MEDS: VITAMIN D 1,000 INTERNATIONAL UNITS TABLET PO SCH (21:20)
[2021-06-24] MEDS: LEVEMIR (INSULIN DETEMIR) 1 UNITS/0.01ML SC SCH (21:22)
[2021-06-24 22:00] VITALS: BP 158/78
[2021-06-25] MEDS: VANCOMYCIN HCL 1,000 MG, VIAL MATE ADAPTER 1 EACH in NS 250 ML IV SCH ×2 (05:48→18:18)
[2021-06-25] MEDS: HEPARIN SOD (PORCINE) 5000UNITS/ML 1ML VIAL/SYRINGE SC SCH ×3 (05:48→20:36)
[2021-06-25 06:00] VITALS: BP 139/78
[2021-06-25 06:40] LABS: BASO # 0.1 10^3/uL (0.0-0.2); BASO % 0.5 % (0.0-1.0); EOS # 0.1 10^3/uL (0.0-0.5); EOS % 0.7 % (0.0-3.0); HEMATOCRIT 37.9 % (42.0-52.0); HEMOGLOBIN 12.3 g/dl (13.5-17.5); LYMPH # 1.8 10^3/uL (1.5-5.0); LYMPH % 11.8 % (24.0-44.0); MEAN CORPUSCULAR HEMOGLOBIN 29.2 pg (27.0-33.0); MEAN CORPUSCULAR HGB CONC 32.5 g/dl (32.0-36.5); MONO # 1.2 10^3/uL (0.0-0.8); MONO % 8.3 % (2.0-8.0); NEUTROPHILS # 11.3 10^3/uL (1.5-8.5); NEUTROPHILS % 76.7 % (36.0-66.0); PLATELET COUNT, AUTOMATED 278 10^3/uL (150-450); RED BLOOD COUNT 4.21 10^6/uL (4.30-6.10); WHITE BLOOD COUNT 14.8 10^3/uL (4.0-10.0)
[2021-06-25 07:01] LABS: BILIRUBIN,TOTAL 0.2 MG/DL (0.2-1.0); CALCIUM LEVEL 8.6 MG/DL (8.5-10.1); CREATININE FOR GFR 1.44 MG/DL (0.70-1.30); GLOMERULAR FILTRATION RATE 56.2 (>60); MAGNESIUM LEVEL 1.9 MG/DL (1.8-2.4); POTASSIUM SERUM 4.1 MEQ/L (3.5-5.1); TOTAL PROTEIN 5.7 GM/DL (6.4-8.2)
[2021-06-25] MEDS: MULTIVITAMINS/MINERALS THERAP 1 TAB PO SCH (08:32)
[2021-06-25] MEDS: ASPIRIN 81MG ENTERIC TABLET PO SCH (08:32)
[2021-06-25] MEDS: CYANOCOBALAMIN 500 MCG TAB PO SCH (08:32)
[2021-06-25] MEDS: CETIRIZINE (ZyrTEC) 10 MG TAB PO SCH (08:32)
[2021-06-25] MEDS: LACTOBACILLUS ACIDOPHILUS CAP (BACID) PO SCH ×2 (08:32→18:18)
[2021-06-25] MEDS: OMEPRAZOLE 20 MG CAP PO SCH (08:32)
[2021-06-25] MEDS: FENOFIBRATE 145MG TABLET (TRICOR) PO SCH (08:32)
[2021-06-25] MEDS: BUMETANIDE 1 MG TAB PO SCH ×2 (08:32→18:18)
[2021-06-25] MEDS: PREGABALIN 75 MG CAP(LYRICA) PO SCH ×2 (08:33→20:34)
[2021-06-25] MEDS: METOPROLOL TART 50 MG TAB PO SCH ×2 (08:33→20:36)
[2021-06-25] MEDS: ROSUVASTATIN 10 MG TAB (CRESTOR) PO SCH (08:33)
[2021-06-25] MEDS: DULoxetine 30MG CAPSULE (CYMBALTA) PO SCH (08:33)
[2021-06-25] MEDS: allopurinoL 300 MG TAB PO SCH (08:33)
[2021-06-25] MEDS: LOSARTAN 50MG TABLET PO SCH (08:33)
[2021-06-25] MEDS: cefTRIAXone SOD 2 GM in D5W MINI-BAG PLUS 50 ML IV SCH (08:34)
[2021-06-25] MEDS: FLUTICASONE PROP 0.05% NASAL SPRAY 16 GM (FLONASE) NARES SCH (08:34)
[2021-06-25] MEDS: POTASSIUM CHLORIDE 10MEQ SR TABLET PO SCH ×2 (08:34→20:34)
[2021-06-25] MEDS: metOLazone 2.5 MG TAB PO SCH (08:34)
[2021-06-25] MEDS: VANICREAM MOISTURIZING SKIN CREAM 113GM TUBE TOP SCH ×3 (08:35→20:37)
[2021-06-25] MEDS: LEVEMIR (INSULIN DETEMIR) 1 UNITS/0.01ML SC SCH ×2 (11:59→20:38)
--- NOTE | 2021-06-25 12:43 | IPNPDOC ---
Text Note Date of Service The patient was seen on 06/25/21. NOTE Subjective: No any acute events overnight. Patient stated that he feels better. Debridement was done yesterday patient tolerated procedure well Objective: GENERAL APPEARANCE: Morbidly obese male HEENT: no scleral icterus, plus JVD, EOMI CARDIOVASCULAR: S1S2 LUNGS: Diminished lung sounds bilaterally ABDOMEN: soft & not tender w palpation MUSCULOSKELETAL: no cyanosis, +1 swelling of lower extremities, mild erythema of distal part of left leg and foot, keratotic skin changes of both feet, skin changes of both lower extremities consistent with venous stasis INTEGUMENT: no generalized pallor NEUROLOGICAL: cranial nerve function from 2-12 intact, follows commands, speech not dysarthric Assessment plan Patient is 45 years old male with past medical history of CAD, [place], CABG, CHF, hypertension, neuropathy, CKD, gout, diabetes and obesity status post gastric bypass 2019 who presents with left lower extremity pain. Patient was found to have left foot cellulitis spreading to the distal tibial part of left leg Left foot cellulitis/left foot osteomyelitis Most likely patient has open wounds between his 3, fourth, fifth toes of the left foot. I asked crm marketing analyst Dr. Baldwin to see him. Patient has significant keratotic changes with possible fungal infection of both feet Continue vancomycin IV, patient failed treatment with clindamycin p.o. in the outpatient settings X-ray showed No evidence of bone destruction. Foci of bone mineralization demonstrated in multiple metatarsal heads may indicate inflammatory changes. 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 If there is a strong index suspicion for osteomyelitis further evaluation with pre and post-contrast MRI suggested. MRI showed Bone marrow edema in the lateral aspect of the head of the left 5th metatarsal and proximal middle phalanges of the left 5th toe, which may represent osteomyelitis or reactive osteitis. 2. 0.9 cm x 4.1 cm x 0.7 cm soft tissue fluid collection dorsal to the head and neck of the left 5th metatarsal and proximal phalanx of the left 5th toe, which may represent an abscess. Debridement was done on 06/24/2021 I added ceftriaxone IV to his medical regimen day 3 of antibiotic therapy. Abscess culture positive for Streptococcus agalactiae, await sensitivity Pain management Leg elevation Chronic kidney disease stage III Creatinine at baseline Improved Continue to monitor Chronic diastolic CHF: Not in acute exacerbation Last echo 2019 LVEF 65% Monitor fluid balance, I's and O's, urinary output Continue home meds Coronary artery disease No any acute chest pain reported Continue home meds Hypertension Continue home meds blood pressure under control Type 2 diabetes Patient has insulin pump Glucose level under control Neuropathy/back pain: Continue home medications Obesity: BMI 42.3 Complicates care Gout Continue allopurinol Obstructive sleep apnea Patient may use his own CPAP DVT prophylaxis with heparin 3 times daily VS,Fishbone, I+O VS, Fishbone, I+O Laboratory Tests 06/25/21 06:05 Vital Signs Date Time Temp Pulse Resp B/P (MAP) Pulse Ox O2 Delivery O2 Flow Rate FiO2 06/25/21 06:00 97.6 85 18 139/78 (98) 96 Room Air I&O- Last 24 Hours up to 6 AM 06/25/21 06:00 Intake Total 2380 ml Balance 2380 ml ALEXANDRIA CODY DO Jun 25, 2021 12:43
[2021-06-25 14:00] VITALS: BP 145/68
[2021-06-25] MEDS: VITAMIN D 1,000 INTERNATIONAL UNITS TABLET PO SCH (20:34)
[2021-06-25 20:47] VITALS: BP 164/84
[2021-06-26] MEDS: HEPARIN SOD (PORCINE) 5000UNITS/ML 1ML VIAL/SYRINGE SC SCH (05:32)
[2021-06-26] MEDS: VANCOMYCIN HCL 1,000 MG, VIAL MATE ADAPTER 1 EACH in NS 250 ML IV SCH (05:32)
[2021-06-26 06:00] VITALS: BP 169/83
[2021-06-26 06:27] LABS: BASO # 0.1 10^3/uL (0.0-0.2); BASO % 0.7 % (0.0-1.0); EOS # 0.2 10^3/uL (0.0-0.5); EOS % 1.9 % (0.0-3.0); HEMATOCRIT 38.2 % (42.0-52.0); HEMOGLOBIN 12.2 g/dl (13.5-17.5); LYMPH # 2.2 10^3/uL (1.5-5.0); LYMPH % 18.6 % (24.0-44.0); MEAN CORPUSCULAR HEMOGLOBIN 28.7 pg (27.0-33.0); MEAN CORPUSCULAR HGB CONC 31.9 g/dl (32.0-36.5); MEAN CORPUSCULAR VOLUME 89.9 fl (80.0-96.0); MONO # 0.8 10^3/uL (0.0-0.8); MONO % 6.9 % (2.0-8.0); NEUTROPHILS % 67.6 % (36.0-66.0); PLATELET COUNT, AUTOMATED 280 10^3/uL (150-450); RED BLOOD COUNT 4.25 10^6/uL (4.30-6.10); WHITE BLOOD COUNT 11.9 10^3/uL (4.0-10.0)
[2021-06-26 07:03] LABS: ALBUMIN 1.9 GM/DL (3.2-5.2); ALT/SGPT 47 U/L (12-78); BILIRUBIN,TOTAL 0.2 MG/DL (0.2-1.0); BLOOD UREA NITROGEN 35 MG/DL (7-18); CALCIUM LEVEL 8.4 MG/DL (8.5-10.1); CARBON DIOXIDE LEVEL 30 MEQ/L (21-32); CHLORIDE LEVEL 111 MEQ/L (98-107); GLOMERULAR FILTRATION RATE > 60.0 (>60); GLUCOSE, FASTING 99 MG/DL (70-100); MAGNESIUM LEVEL 1.9 MG/DL (1.8-2.4); POTASSIUM SERUM 4.3 MEQ/L (3.5-5.1); SODIUM LEVEL 145 MEQ/L (136-145); TOTAL PROTEIN 5.6 GM/DL (6.4-8.2)
[2021-06-26] MEDS: metOLazone 2.5 MG TAB PO SCH (08:01)
[2021-06-26] MEDS: BUMETANIDE 1 MG TAB PO SCH (08:01)
[2021-06-26] MEDS: ASPIRIN 81MG ENTERIC TABLET PO SCH (08:01)
[2021-06-26] MEDS: LACTOBACILLUS ACIDOPHILUS CAP (BACID) PO SCH (08:01)
[2021-06-26] MEDS: allopurinoL 300 MG TAB PO SCH (08:01)
[2021-06-26] MEDS: DULoxetine 30MG CAPSULE (CYMBALTA) PO SCH (08:01)
[2021-06-26] MEDS: ROSUVASTATIN 10 MG TAB (CRESTOR) PO SCH (08:01)
[2021-06-26 08:02] VITALS: BP 169/83
[2021-06-26] MEDS: PREGABALIN 75 MG CAP(LYRICA) PO SCH (08:02)
[2021-06-26] MEDS: LOSARTAN 50MG TABLET PO SCH (08:02)
[2021-06-26] MEDS: CYANOCOBALAMIN 500 MCG TAB PO SCH (08:02)
[2021-06-26] MEDS: FENOFIBRATE 145MG TABLET (TRICOR) PO SCH (08:02)
[2021-06-26] MEDS: MULTIVITAMINS/MINERALS THERAP 1 TAB PO SCH (08:02)
[2021-06-26] MEDS: OMEPRAZOLE 20 MG CAP PO SCH (08:02)
[2021-06-26] MEDS: METOPROLOL TART 50 MG TAB PO SCH (08:03)
[2021-06-26] MEDS: CETIRIZINE (ZyrTEC) 10 MG TAB PO SCH (08:03)
[2021-06-26] MEDS: cefTRIAXone SOD 2 GM in D5W MINI-BAG PLUS 50 ML IV SCH (08:03)
[2021-06-26] MEDS: POTASSIUM CHLORIDE 10MEQ SR TABLET PO SCH (08:03)
[2021-06-26] MEDS: FLUTICASONE PROP 0.05% NASAL SPRAY 16 GM (FLONASE) NARES SCH (08:04)
[2021-06-26] MEDS: VANICREAM MOISTURIZING SKIN CREAM 113GM TUBE TOP SCH (08:04)
[2021-06-26] MEDS: LEVEMIR (INSULIN DETEMIR) 1 UNITS/0.01ML SC SCH (08:04)
[2021-06-26] MEDS ORDERED: LEVO500T3 PO (10:17)
--- NOTE | 2021-06-26 13:05 | DS.PDOC ---
Discharge Summary General Date of Admission Jun 22, 2021 at 18:46 Date of Discharge 06/26/21 Discharge Summary PROCEDURES PERFORMED DURING STAY: Left foot 5th metatarsal head excision and incision and drainage ADMITTING DIAGNOSES: Left foot cellulitis/left foot osteomyelitis Chronic kidney disease stage III Chronic diastolic CHF Hypertension Type 2 diabetes Coronary artery disease Neuropathy/back pain Obesity Gout Obstructive sleep apnea DISCHARGE DIAGNOSES: Left foot cellulitis/left foot osteomyelitis Chronic kidney disease stage III Chronic diastolic CHF Hypertension Type 2 diabetes Coronary artery disease Neuropathy/back pain Obesity Gout Obstructive sleep apnea COMPLICATIONS/CHIEF COMPLAINT: Cellulitis Of Left Lower Extremity. HISTORY OF PRESENT ILLNESS: Patient is 45 years old male with past medical history of CAD, OH, CABG, CHF, hypertension, neuropathy, CKD, gout, diabetes and obesity status post gastric bypass 2020 who presents with left lower extremity pain. Patient was found to have left foot cellulitis spreading to the distal tibial part of left leg HOSPITAL COURSE: The hospital stay the following issue addressed X-ray was done and showed No evidence of bone destruction. Foci of bone mineralization demonstrated in multiple metatarsal heads may indicate inflammatory changes. 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 If there is a strong index suspicion for osteomyelitis further evaluation with pre and post-contrast MRI suggested. MRI showed Bone marrow edema in the lateral aspect of the head of the left 5th metatarsal and proximal middle phalanges of the left 5th toe, which may represent osteomyelitis or reactive osteitis. 2. 0.9 cm x 4.1 cm x 0.7 cm soft tissue fluid collection dorsal to the head and neck of the left 5th metatarsal and proximal phalanx of the left 5th toe, which may represent an abscess. Debridement was done on 06/24/[address] Baldwin Patient received treatment with vancomycin and ceftriaxone, abscess culture positive for Streptococcus agalactiae sensitive to levofloxacin. Podiatry team recommended to antibiotic therapy for 10 days Patient received pain management DISCHARGE MEDICATIONS: Please see below. ALLERGIES: Please see below. PHYSICAL EXAMINATION ON DISCHARGE: VITAL SIGNS: Please see below. GENERAL APPEARANCE: Morbidly obese male HEENT: no scleral icterus, plus JVD, EOMI CARDIOVASCULAR: S1S2 LUNGS: Diminished lung sounds bilaterally ABDOMEN: soft & not tender w palpation MUSCULOSKELETAL: no cyanosis, keratotic skin changes of both feet, skin changes of both lower extremities consistent with venous stasis, left foot covered with dressing INTEGUMENT: no generalized pallor NEUROLOGICAL: cranial nerve function from 2-12 intact, follows commands, speech not dysarthric LABORATORY DATA: Please see below. IMAGING: See above PROGNOSIS: Fair ACTIVITY: [As tolerated]. DIET: Cardiac/diabetes DISCHARGE PLAN: Home DISPOSITION: 01 Home, Self-Care. ITEMS TO FOLLOWUP ON ON OUTPATIENT: Follow-up with radar technician in 3 to 5 days DISCHARGE CONDITION: [Stable]. TIME SPENT ON DISCHARGE: 40 minutes. Vital Signs/I&Os Vital Signs Date Time Temp Pulse Resp B/P (MAP) Pulse Ox O2 Delivery O2 Flow Rate FiO2 06/26/21 08:02 169/83 06/26/21 06:00 98.6 57 19 98 NIPPV (BIPAP/CPAP) I&O- Last 24 Hours up to 6 AM 06/26/21 06:00 Intake Total 2400 ml Output Total 500 ml Balance 1900 ml Laboratory Data Labs 24H Laboratory Tests 2 06/25/21 16:44: Bedside Glucose (Misc Panel) 124H 06/25/21 17:00: Vancomycin Level Trough 12.8 06/25/21 19:45: Bedside Glucose (Misc Panel) 230H 06/26/21 06:11: Immature Granulocyte % (Auto) 4.3H, Neutrophils (%) (Auto) 67.6H, Lymphocytes (%) (Auto) 18.6L, Monocytes (%) (Auto) 6.9, Eosinophils (%) (Auto) 1.9, Basophils (%) (Auto) 0.7, Neutrophils # (Auto) 8.0, Lymphocytes # (Auto) 2.2, Monocytes # (Auto) 0.8, Eosinophils # (Auto) 0.2, Basophils # (Auto) 0.1, Nucleated Red Blood Cells % (auto) 0.0, Anion Gap 4L, Glomerular Filtration Rate > 60.0, Calcium Level 8.4L, Magnesium Level 1.9, Total Bilirubin 0.2, Aspartate Amino Transf (AST/SGOT) 38H, Alanine Aminotransferase (ALT/SGPT) 47, Alkaline Phosphatase 172H, Total Protein 5.6L, Albumin 1.9L, Albumin/Globulin Ratio 0.5 CBC/BMP Laboratory Tests 06/26/21 06:11 FSBS Laboratory Tests Test 06/25/21 16:44 06/25/21 19:45 Range/Units Bedside Glucose (Misc Panel) 124 230 70-105 MG/DL Microbiology Microbiology 06/24/21 Anaerobic Culture - Final, Complete 06/24/21 Gram Stain - Final, Complete 06/24/21 Abscess Culture - Final, Complete Strep Agalactiae Group B 06/22/21 Respiratory Virus Panel (PCR) ([facility]ANNA[facility]) - Final, Complete 06/22/21 Blood Culture - Preliminary, Resulted No Growth after 72 hours. All specime... 06/22/21 Blood Culture - Preliminary, Resulted No Growth after 72 hours. All specime... Discharge Medications Scheduled Aspirin (Aspirin EC) 81 Mg Tablet.dr, 81 MG PO DAILY, (Reported) Bumetanide (Bumetanide) 2 Mg Tablet, 4 MG PO BID, (Reported) Cetirizine HCl (Cetirizine HCl) 10 Mg Tablet, 10 MG PO DAILY, (Reported) Cholecalciferol (Vitamin D3) (Vitamin D3) 1,000 Unit Tablet, 1,000 UNITS PO QHS, (Reported) Cyanocobalamin (Vitamin B-12) (Vitamin B-12) 1,000 Mcg Tablet, 1,000 MCG PO DAILY, (Reported) Duloxetine Hcl (Duloxetine HCl) 30 Mg Capsule.dr, 90 MG PO DAILY, (Reported) Fenofibrate Nanocrystallized (Fenofibrate) 145 Mg Tablet, 145 MG PO DAILY, (Reported) Fluticasone Propionate (Fluticasone Propionate) 15.8 Ml Guy.susp, 1 SPRAY NARES DAILY, (Reported) Insulin Glargine,Hum.rec.anlog (Toujeo Solostar) 300 Unit/1 Ml Insuln.pen, 40 UNIT SC QHS, (Reported) Insulin Human Lispro (Humalog) 100 Unit/1 Ml Vial, 1 DOSE SC ASDIRECTED, (Reported) VIA INSULIN PUMP Ketoconazole (Ketoconazole) 15 Gm Cream..g., 1 APLCT TOP BID, (Reported) APPLIES TO BOTH LEGS Levofloxacin (Levofloxacin) 500 Mg Tablet, 1 TAB PO DAILY Losartan Potassium (Losartan Potassium) 25 Mg Tablet, 25 MG PO DAILY, (Reported) Metolazone (Metolazone) 2.5 Mg Tablet, 2.5 MG PO DAILY, (Reported) Multivitamins (Thera M Plus Tablet) 1 Each Tablet, 1 TAB PO DAILY, (Reported) Omeprazole (Omeprazole) 40 Mg Capsule.dr, 40 MG PO DAILY, (Reported) Potassium Chloride (Potassium Chloride) 10 Meq Tab.er.prt, 10 MEQ PO BID, (Reported) Pregabalin (Lyrica) 150 Mg Capsule, 150 MG PO BID, (Reported) Rosuvastatin Calcium (Rosuvastatin Calcium) 20 Mg Tablet, 20 MG PO DAILY, (Reported) allopurinoL (allopurinoL) 300 Mg Tablet, 600 MG PO DAILY, (Reported) Allergies Coded Allergies: lisinopril (Verified Allergy, Unknown, 08/11/19) ALEXANDRIA CODY DO Jun 26, 2021 13:04
== END 2021-06-26 11:51 | disposition home or self-care (01) | DRG 314 ==
LOC: M ED 16:00 → M ED INP 18:46 → ENRESERV 20:47 → M MSPAV 22:14
PROVIDERS: ADMIT Internal Medicine; ATTEND Internal Medicine
PROC: 0Y6Y0Z1 Detachment at Left 5th Toe, High, Open Approach (ICD-10-PCS; principal; 2021-06-24 08:30)
DX: E11.621 Type 2 diabetes mellitus with foot ulcer (principal); E11.40 Type 2 diabetes mellitus with diabetic neuropathy, unspecified; N17.9 Acute kidney failure, unspecified; M86.272 Subacute osteomyelitis, left ankle and foot; I13.0 Hypertensive heart and chronic kidney disease with heart failure and stage 1 through stage 4 chronic kidney disease, or unspecified chronic kidney disease; L03.116 Cellulitis of left lower limb; Z68.41 Body mass index [BMI] 40.0-44.9, adult; I50.32 Chronic diastolic (congestive) heart failure; N18.30 Chronic kidney disease, stage 3 unspecified; L97.929 Non-pressure chronic ulcer of unspecified part of left lower leg with unspecified severity; E66.9 Obesity, unspecified; I25.10 Atherosclerotic heart disease of native coronary artery without angina pectoris; M10.9 Gout, unspecified; G47.33 Obstructive sleep apnea (adult) (pediatric); I25.2 Old myocardial infarction; Z79.82 Long term (current) use of aspirin; Z79.899 Other long term (current) drug therapy; Z88.8 Allergy status to other drugs, medicaments and biological substances; Z95.2 Presence of prosthetic heart valve; I73.9 Peripheral vascular disease, unspecified; F17.200 Nicotine dependence, unspecified, uncomplicated

== ENCOUNTER 2021-08-16 08:40 | Emergency (ER) | payer MEDICARE, OTHER ==
[~2021-08-16] VITALS: Ht 170.2 cm; Wt 119.7 kg
[~2021-08-16 08:40] MED LIST changes: +ALLO300T2 PO; +ASPI81TA26 PO; -CEFD1CAP8 PO; +CEFD300C41 PO; +CETI-24 PO; +CLIN-250; +CYAN100049 PO; -CYMB60CA3 PO; +CYMB60CA4 PO; +D31000TA2 PO; +DULO30CA9 PO; +FLUT15.820 NARES; +FLUTISP; +KETO2CR TOP; +LEVO500T4 PO; +LOSA100T45 PO; -LOSA100T50 PO; +LOSA25TA13 PO; +LOSA50TA28 PO; -LOSA50TA88 PO; +LYRI150C PO; +METO50TA7; +OMEP10CASR PO; +OMEP40CA5 PO; +POTA10TA17 PO; +VITMTA PO
[2021-08-16] MEDS ORDERED: CYCL-707 PO (12:19)
[2021-08-16] MEDS ORDERED: TRAM50TA2 PO (12:19)
[2021-08-16 12:27] VITALS: BP 166/94
== END 2021-08-16 12:31 | disposition home or self-care (01) ==
LOC: M ED 08:40
DX: M54.50 Low back pain, unspecified (principal); X50.0XXA Overexertion from strenuous movement or load, initial encounter; Y92.9 Unspecified place or not applicable; Y93.9 Activity, unspecified; Y99.9 Unspecified external cause status; I25.10 Atherosclerotic heart disease of native coronary artery without angina pectoris; I25.2 Old myocardial infarction; I11.0 Hypertensive heart disease with heart failure; I50.9 Heart failure, unspecified; E11.42 Type 2 diabetes mellitus with diabetic polyneuropathy; K21.9 Gastro-esophageal reflux disease without esophagitis; J45.909 Unspecified asthma, uncomplicated; F17.200 Nicotine dependence, unspecified, uncomplicated; Z88.8 Allergy status to other drugs, medicaments and biological substances; Z79.899 Other long term (current) drug therapy; Z79.82 Long term (current) use of aspirin; Z79.4 Long term (current) use of insulin

== ENCOUNTER → 2021-08-28 | Outpatient (CLI) | payer MEDICARE ==
[~2021-08-28] MED LIST changes: +CYCL-707 PO; +TRAM50TA2 PO
== END ==
LOC: M WUC 08:26
PROVIDERS: ATTEND Pediatrics
DX: M51.36 Other intervertebral disc degeneration, lumbar region (principal); M51.37 Other intervertebral disc degeneration, lumbosacral region; M17.11 Unilateral primary osteoarthritis, right knee; I73.9 Peripheral vascular disease, unspecified

== ENCOUNTER → 2021-08-30 | Outpatient (CLI) | payer MEDICARE ==
[~2021-08-30] MED LIST changes: +CEFD1CAP8 PO; -CEFD300C41 PO; +LEVO500T3 PO; -LEVO500T4 PO; -LOSA100T45 PO; +LOSA100T50 PO; -LOSA25TA13 PO; +LOSA25TA14 PO; -LOSA50TA28 PO; +LOSA50TA88 PO; +OMEP-221 PO; -OMEP40CA5 PO
--- NOTE | 2021-08-30 14:08 | REP ---
INDICATION: RT KNEE PAIN. COMPARISON: Right knee dated 08/28/2021; left knee dated 03/10/2021 TECHNIQUE: Single weight-bearing AP view of the right and left knee FINDINGS: Stable findings include increased sclerosis to the tibial plateau and very mild bilateral medial joint space narrowing. IMPRESSION: Mild medial joint space narrowing noted bilaterally. <Electronically signed by Lawrence Torres > 08/30/21 [id number]
== END ==
LOC: M SOG 10:53
PROVIDERS: ATTEND Orthopaedic Surgery Adult Reconstructive Orthopaedic Surgery
DX: M25.561 Pain in right knee (principal)

== ENCOUNTER → 2021-09-15 | Outpatient (RCR) | payer MEDICARE | LOC: M PT 09-04 11:22 | PROVIDERS: ATTEND Orthopaedic Surgery Adult Reconstructive Orthopaedic Surgery | DX: M54.31 Sciatica, right side (principal) ==

== ENCOUNTER 2021-10-12 14:15 | Outpatient (RCR) | payer MEDICARE ==
[~2021-10-12 14:15] MED LIST changes: -CEFD1CAP8 PO; +CEFD300C41 PO; -LEVO500T3 PO; +LEVO500T4 PO; +LOSA100T45 PO; -LOSA100T50 PO; +LOSA25TA13 PO; -LOSA25TA14 PO; +LOSA50TA28 PO; -LOSA50TA88 PO; -OMEP-221 PO; +OMEP40CA5 PO
== END 2021-10-16 ==
LOC: M PT 14:15
PROVIDERS: ATTEND Orthopaedic Surgery Adult Reconstructive Orthopaedic Surgery
DX: M54.31 Sciatica, right side (principal)

== ENCOUNTER → 2021-10-16 | Outpatient (REF) | payer MEDICARE | LOC: M LAB REF 12:39 | PROVIDERS: ATTEND Internal Medicine Nephrology | DX: E10.22 Type 1 diabetes mellitus with diabetic chronic kidney disease (principal); E83.42 Hypomagnesemia ==

== ENCOUNTER 2021-10-31 10:49 | Outpatient (RCR) | payer MEDICARE ==
[~2021-10-31 10:49] MED LIST changes: -D31000TA2 PO; +VITA100093 PO
== END 2021-11-13 ==
LOC: M PT 10:49
PROVIDERS: ATTEND Orthopaedic Surgery Adult Reconstructive Orthopaedic Surgery
DX: M54.31 Sciatica, right side (principal)

== ENCOUNTER 2022-01-09 22:12 | Emergency (ER) | payer MEDICARE ==
[~2022-01-09] VITALS: Ht 172.7 cm; Wt 131.5 kg
[2022-01-09 23:20] LABS: BASO % 0.3 % (0.0-1.0); EOS # 0.1 10^3/uL (0.0-0.5); EOS % 0.7 % (0.0-3.0); HEMATOCRIT 40.3 % (42.0-52.0); HEMOGLOBIN 13.3 g/dl (13.5-17.5); LYMPH # 1.1 10^3/uL (1.5-5.0); LYMPH % 6.9 % (24.0-44.0); MEAN CORPUSCULAR HEMOGLOBIN 29.9 pg (27.0-33.0); MEAN CORPUSCULAR VOLUME 90.6 fl (80.0-96.0); MONO # 1.2 10^3/uL (0.0-0.8); MONO % 7.8 % (2.0-8.0); NEUTROPHILS # 12.7 10^3/uL (1.5-8.5); NEUTROPHILS % 83.6 % (36.0-66.0); PLATELET COUNT, AUTOMATED 230 10^3/uL (150-450); RED BLOOD COUNT 4.45 10^6/uL (4.30-6.10); WHITE BLOOD COUNT 15.2 10^3/uL (4.0-10.0)
[2022-01-09 23:44] LABS: C REACTIVE PROTEIN QUANTITATIV 10.5 MG/DL (0.00-0.30); CALCIUM LEVEL 8.8 MG/DL (8.5-10.1); CREATININE FOR GFR 1.41 MG/DL (0.70-1.30); GLOMERULAR FILTRATION RATE 57.4 (>60); POTASSIUM SERUM 3.2 MEQ/L (3.5-5.1)
[2022-01-09 23:45] LABS: ERYTHROCYTE SEDIMENTATION RATE 72 mm/hr (0-15)
[2022-01-10] MEDS ORDERED: ceFAZolin SOD 1 GM in D5W MINI-BAG PLUS 50 ML IV ONE (00:10)
[2022-01-10] MEDS ORDERED: ISOVUE-370 76% 100ML VIAL As Ordered ONE (00:15)
[2022-01-10] MEDS ORDERED: DOXY-443 PO (01:52)
[2022-01-10] MEDS ORDERED: HYDR-3713 PO (01:52)
[2022-01-10] MEDS ORDERED: NORCO 5/325MG TABLET (BULK FOR ED) PO ONE (01:55)
[2022-01-10 02:01] VITALS: BP 152/74
== END 2022-01-10 02:42 | disposition home or self-care (01) ==
LOC: M ED 22:12
DX: L03.221 Cellulitis of neck (principal); I11.0 Hypertensive heart disease with heart failure; I50.9 Heart failure, unspecified; E11.9 Type 2 diabetes mellitus without complications; I25.10 Atherosclerotic heart disease of native coronary artery without angina pectoris; E78.5 Hyperlipidemia, unspecified; J45.909 Unspecified asthma, uncomplicated; N18.9 Chronic kidney disease, unspecified; Z79.4 Long term (current) use of insulin; Z79.899 Other long term (current) drug therapy
CPT/HCPCS: 70491; 80048; 83605; 85025; 85652; 86140; 87040; 96365; 96366; 99284; J0690; Q9967

== ENCOUNTER 2022-03-16 18:19 | Emergency (ER) | payer MEDICARE, OTHER ==
[~2022-03-16] VITALS: Ht 170.2 cm; Wt 130.4 kg
[~2022-03-16 18:19] MED LIST changes: +DOXY-443 PO; +HYDR-3713 PO
[2022-03-16 20:04] LABS: BASO # 0.1 10^3/uL (0.0-0.2); BASO % 0.4 % (0.0-1.0); EOS # 0.1 10^3/uL (0.0-0.5); EOS % 0.5 % (0.0-3.0); HEMATOCRIT 45.1 % (42.0-52.0); HEMOGLOBIN 14.5 g/dl (13.5-17.5); LYMPH # 1.2 10^3/uL (1.5-5.0); LYMPH % 10.3 % (24.0-44.0); MEAN CORPUSCULAR HEMOGLOBIN 29.7 pg (27.0-33.0); MEAN CORPUSCULAR HGB CONC 32.2 g/dl (32.0-36.5); MEAN CORPUSCULAR VOLUME 92.2 fl (80.0-96.0); MONO % 9.1 % (2.0-8.0); NEUTROPHILS % 78.7 % (36.0-66.0); PLATELET COUNT, AUTOMATED 213 10^3/uL (150-450); RED BLOOD COUNT 4.89 10^6/uL (4.30-6.10); WHITE BLOOD COUNT 11.4 10^3/uL (4.0-10.0)
[2022-03-16 20:23] LABS: C REACTIVE PROTEIN QUANTITATIV 8.24 MG/DL (0.00-0.30); CALCIUM LEVEL 9.3 MG/DL (8.5-10.1); CREATININE FOR GFR 1.53 MG/DL (0.70-1.30); ERYTHROCYTE SEDIMENTATION RATE 63 mm/hr (0-15); GLOMERULAR FILTRATION RATE 52.2 (>60); POTASSIUM SERUM 3.8 MEQ/L (3.5-5.1); URIC ACID 6.5 MG/DL (3.5-7.2)
[2022-03-17] MEDS ORDERED: COLCHICINE 0.6 MG TABLET PO ONE ×2 (01:00→02:10)
[2022-03-17] MEDS ORDERED: cefTRIAXone SOD 1 GM in D5W MINI-BAG PLUS 50 ML IV ONE (01:00)
[2022-03-17 01:57] VITALS: BP 160/90
[2022-03-17] MEDS ORDERED: CEPH500C PO (02:11)
== END 2022-03-17 02:46 | disposition home or self-care (01) ==
LOC: M ED 18:19
DX: M25.522 Pain in left elbow (principal); E11.9 Type 2 diabetes mellitus without complications; I10 Essential (primary) hypertension; M10.9 Gout, unspecified; Z88.8 Allergy status to other drugs, medicaments and biological substances; Z86.79 Personal history of other diseases of the circulatory system; Z79.4 Long term (current) use of insulin; Z79.899 Other long term (current) drug therapy
CPT/HCPCS: 80048; 84550; 85025; 85652; 86140; 96365; 96366; 99284; J0696

== ENCOUNTER → 2022-03-30 | Outpatient (CLI) | payer MEDICARE, OTHER ==
[~2022-03-30] MED LIST changes: +CEPH500C PO
== END ==
LOC: M WUC 13:14
PROVIDERS: ATTEND Physician Assistant
DX: M25.522 Pain in left elbow (principal)

== ENCOUNTER → 2022-07-23 | Outpatient (CLI) | payer MEDICARE, OTHER ==
[~2022-07-23] MED LIST changes: -DOXY-350 PO; +DOXY-444 PO; +FISH10005 PO; -FISH7.5C PO; +LEVO1TAB39 PO; -LEVO500T4 PO; +POTA-150 PO; -POTA10TA17 PO
== END ==
LOC: M WUC 09:58
PROVIDERS: ATTEND Nurse Practitioner Family
DX: R10.2 Pelvic and perineal pain (principal)

== ENCOUNTER 2022-08-14 20:07 | Emergency (ER) | payer MEDICARE, OTHER ==
[~2022-08-14] VITALS: Ht 172.7 cm; Wt 139.8 kg
[~2022-08-14 20:07] MED LIST changes: -LOSA100T45
[2022-08-14] MEDS ORDERED: LOSA100T45 (20:23)
[2022-08-15 03:13] LABS: BASO # 0.1 10^3/uL (0.0-0.2); BASO % 0.6 % (0.0-1.0); EOS # 0.1 10^3/uL (0.0-0.5); EOS % 1.2 % (0.0-3.0); HEMATOCRIT 43.3 % (42.0-52.0); HEMOGLOBIN 13.8 g/dl (13.5-17.5); LYMPH # 1.2 10^3/uL (1.5-5.0); LYMPH % 10.5 % (24.0-44.0); MEAN CORPUSCULAR HEMOGLOBIN 28.6 pg (27.0-33.0); MEAN CORPUSCULAR HGB CONC 31.9 g/dl (32.0-36.5); MEAN CORPUSCULAR VOLUME 89.8 fl (80.0-96.0); MONO # 0.9 10^3/uL (0.0-0.8); MONO % 8.2 % (2.0-8.0); NEUTROPHILS # 8.9 10^3/uL (1.5-8.5); NEUTROPHILS % 78.7 % (36.0-66.0); PLATELET COUNT, AUTOMATED 233 10^3/uL (150-450); RED BLOOD COUNT 4.82 10^6/uL (4.30-6.10); WHITE BLOOD COUNT 11.3 10^3/uL (4.0-10.0)
[2022-08-15 03:17] LABS: POTASSIUM SERUM 3.5 MMOL/L (3.5-5.1)
[2022-08-15 03:23] LABS: CALCIUM LEVEL 8.7 MG/DL (8.5-10.1)
[2022-08-15 03:24] LABS: C REACTIVE PROTEIN QUANTITATIV 1.3 MG/DL (<1.0)
[2022-08-15 03:25] LABS: CREATININE FOR GFR 1.69 MG/DL (0.70-1.30); GLOMERULAR FILTRATION RATE 46.3 (>60)
[2022-08-15 03:36] LABS: ERYTHROCYTE SEDIMENTATION RATE 44 mm/hr (0-15)
[2022-08-15 04:13] VITALS: BP 170/75
== END 2022-08-15 06:50 | disposition left against medical advice (07) ==
LOC: M ED 20:07
DX: Z53.21 Procedure and treatment not carried out due to patient leaving prior to being seen by health care provider (principal)

== ENCOUNTER → 2022-08-14 | Outpatient (CLI) | payer MEDICARE, OTHER ==
[~2022-08-14] MED LIST changes: +LOSA100T45
== END ==
LOC: M RAD 08:48
PROVIDERS: ATTEND Nurse Practitioner Family
DX: R19.09 Other intra-abdominal and pelvic swelling, mass and lump (principal)

== ENCOUNTER → 2022-10-01 | Outpatient (CLI) | payer MEDICARE, OTHER ==
[~2022-10-01] MED LIST changes: +COLC0.6T47; +DULO1CAP5; +LOSA100T45; +LOSA50TA28
== END ==
LOC: M LABSMTC 11:34
PROVIDERS: ATTEND Anesthesiology
DX: Z01.812 Encounter for preprocedural laboratory examination (principal); Z11.52 Encounter for screening for COVID-19

== ENCOUNTER → 2022-10-21 | Outpatient (CLI) | payer MEDICARE, OTHER | LOC: M LABSMTC 10:21 | PROVIDERS: ATTEND Anesthesiology | DX: Z01.812 Encounter for preprocedural laboratory examination (principal); Z20.822 Contact with and (suspected) exposure to COVID-19 ==

== ENCOUNTER → 2022-11-09 | Outpatient (CLI) | payer MEDICARE, OTHER | LOC: M LABSMTC 09:21 | PROVIDERS: ATTEND Anesthesiology | DX: Z01.812 Encounter for preprocedural laboratory examination (principal); Z20.822 Contact with and (suspected) exposure to COVID-19 ==

== ENCOUNTER 2022-11-13 11:54 | Day surgery (SDC) | payer MEDICARE, OTHER ==
[~2022-11-13] VITALS: Ht 172.7 cm; Wt 137.4 kg
[~2022-11-13 11:54] MED LIST changes: -COLC0.6T47; -DULO1CAP5; +LIDOCAINE 2% 100MG/5ML SDV (FOR ANES.) As Ordered ONE; +NS 1,000 ML IV ONE; +propofoL 200 MG/20 ML VIAL As Ordered ONE
[2022-11-13] MEDS ORDERED: METO1TAB7 PO (12:27)
[2022-11-13] MEDS ORDERED: fentaNYL 100 MCG/2 ML INJECTION As Ordered ONE (14:09)
[2022-11-13 15:07] VITALS: BP 135/72
== END 2022-11-13 15:08 | disposition home or self-care (01) ==
LOC: M OPP 11:54
PROVIDERS: ATTEND Surgery
DX: Z12.11 Encounter for screening for malignant neoplasm of colon (principal); Z98.84 Bariatric surgery status; K31.89 Other diseases of stomach and duodenum; I50.9 Heart failure, unspecified; G47.33 Obstructive sleep apnea (adult) (pediatric); I25.2 Old myocardial infarction; E78.5 Hyperlipidemia, unspecified; N18.30 Chronic kidney disease, stage 3 unspecified; F17.200 Nicotine dependence, unspecified, uncomplicated; Z79.02 Long term (current) use of antithrombotics/antiplatelets; Z79.4 Long term (current) use of insulin; Z79.82 Long term (current) use of aspirin; Z79.899 Other long term (current) drug therapy; Z88.8 Allergy status to other drugs, medicaments and biological substances
CPT/HCPCS: 43239; 45378; 88305; J3010

== ENCOUNTER → 2022-11-20 | Outpatient (REF) | payer MEDICARE, OTHER ==
[~2022-11-20] MED LIST changes: -LIDOCAINE 2% 100MG/5ML SDV (FOR ANES.) As Ordered ONE; +METO1TAB7 PO; -NS 1,000 ML IV ONE; -propofoL 200 MG/20 ML VIAL As Ordered ONE
== END ==
LOC: M LAB REF 17:21
PROVIDERS: ATTEND Internal Medicine Nephrology
DX: N18.31 Chronic kidney disease, stage 3a (principal)

== ENCOUNTER 2022-11-26 17:11 | Inpatient (IN) | payer MEDICARE, OTHER ==
[~2022-11-26] VITALS: Ht 172.7 cm; Wt 144.2 kg
[~2022-11-26 17:11] MED LIST changes: -ACET-897 PO; -AMMO12CR7 TOP; -CEPH500T PO; -METO50TA7 PO; -OXYC1TAB23 PO; -PERCOCET PO
[2022-11-26 19:43] LABS: BASO # 0.1 10^3/uL (0.0-0.2); BASO % 0.4 % (0.0-1.0); EOS # 0.1 10^3/uL (0.0-0.5); HEMATOCRIT 43.4 % (42.0-52.0); LYMPH # 1.4 10^3/uL (1.5-5.0); MEAN CORPUSCULAR HEMOGLOBIN 29.5 pg (27.0-33.0); MEAN CORPUSCULAR HGB CONC 32.3 g/dl (32.0-36.5); MEAN CORPUSCULAR VOLUME 91.6 fl (80.0-96.0); MONO # 0.8 10^3/uL (0.0-0.8); MONO % 5.9 % (2.0-8.0); NEUTROPHILS # 11.5 10^3/uL (1.5-8.5); PLATELET COUNT, AUTOMATED 227 10^3/uL (150-450); RED BLOOD COUNT 4.74 10^6/uL (4.30-6.10); WHITE BLOOD COUNT 14.1 10^3/uL (4.0-10.0)
[2022-11-26 19:55] LABS: INR 0.83; PROTHROMBIN TIME 11.6 SECONDS (12.5-14.5)
[2022-11-26 20:11] LABS: ALBUMIN 3.2 G/DL (3.2-5.2); BILIRUBIN,TOTAL 0.3 MG/DL (0.3-1.2); CALCIUM LEVEL 8.9 MG/DL (8.5-10.1); CREATININE FOR GFR 1.76 MG/DL (0.70-1.30); GLOMERULAR FILTRATION RATE 44.2 (>60); POTASSIUM SERUM 4.1 MMOL/L (3.5-5.1); TOTAL PROTEIN 6.2 G/DL (5.7-8.2)
[2022-11-26 20:18] LABS: RSV AMPLIFICATION NEGATIVE (NEGATIVE)
[2022-11-26] MEDS ORDERED: SPIR50TA4 PO (20:37)
[2022-11-26] MEDS ORDERED: AMMO12CR7 TOP (20:37)
[2022-11-26] MEDS ORDERED: BUME2TAB3 PO (20:37)
[2022-11-26] MEDS ORDERED: ACET-897 PO (20:39)
[2022-11-26] MEDS ORDERED: MOM 30ML SUSPENSION UDC PO PRN (20:55)
[2022-11-26] MEDS ORDERED: ACETAMINOPHEN TAB 650MG DOSE (2X325MG) PO PRN (20:55)
[2022-11-26] MEDS ORDERED: NS 1,000 ML IV SCH (20:55)
[2022-11-26] MEDS ORDERED: HOME MED LIST COMPLETE! XX SCH (21:05)
[2022-11-26] MEDS ORDERED: GLUCOSE 4GM CHEW TABLET PO PRN (21:05)
[2022-11-26] MEDS ORDERED: GLUCAGON INJ 1MG VIAL SC PRN (21:05)
[2022-11-26] MEDS ORDERED: DEXTROSE 50% 50ML SYRINGE IV PRN (21:05)
[2022-11-26] MEDS: SPIRONOLACTONE 50 MG TAB PO SCH (22:11)
[2022-11-26 22:53] VITALS: BP 176/92
[2022-11-26] MEDS: PREGABALIN 75 MG CAP(LYRICA) PO SCH (23:01)
[2022-11-26] MEDS: POTASSIUM CHLORIDE 10MEQ SR TABLET PO SCH (23:01)
[2022-11-26] MEDS ORDERED: PERCOCET 5MG/325MG TAB PO PRN (23:20)
[2022-11-26] MEDS ORDERED: METO50TA7 PO (23:52)
[2022-11-27] VITALS (7 sets, daily range): BP systolic 135–157; BP diastolic 72–78
[2022-11-27] MEDS: INSULIN LISPRO (NovoLOG) PER UNIT SC SCH ×3 (00:21→17:30)
[2022-11-27] MEDS: METOPROLOL TART 50 MG TAB PO SCH ×3 (01:10→20:18)
[2022-11-27] MEDS: HEPARIN SOD (PORCINE) 5000UNITS/ML 1ML VIAL/SYRINGE SC SCH ×3 (06:00→21:13)
[2022-11-27 06:02] LABS: HEMATOCRIT 40.5 % (42.0-52.0); MEAN CORPUSCULAR HEMOGLOBIN 29.3 pg (27.0-33.0); MEAN CORPUSCULAR HGB CONC 32.1 g/dl (32.0-36.5); MEAN CORPUSCULAR VOLUME 91.4 fl (80.0-96.0); PLATELET COUNT, AUTOMATED 214 10^3/uL (150-450); RED BLOOD COUNT 4.43 10^6/uL (4.30-6.10); WHITE BLOOD COUNT 11.3 10^3/uL (4.0-10.0)
[2022-11-27 06:35] LABS: CALCIUM LEVEL 8.6 MG/DL (8.5-10.1); CREATININE FOR GFR 1.72 MG/DL (0.70-1.30); GLOMERULAR FILTRATION RATE 45.4 (>60); POTASSIUM SERUM 3.9 MMOL/L (3.5-5.1)
[2022-11-27] MEDS: PANTOPRAZOLE 40MG VIAL IV SCH (08:28)
[2022-11-27] MEDS: LOSARTAN 50MG TABLET PO SCH (08:29)
[2022-11-27] MEDS: metOLazone 2.5 MG TAB PO SCH (08:29)
[2022-11-27] MEDS: BUMETANIDE 1 MG TAB PO SCH (08:29)
[2022-11-27] MEDS: PREGABALIN 75 MG CAP(LYRICA) PO SCH ×2 (08:30→20:17)
[2022-11-27] MEDS: allopurinoL 300 MG TAB PO SCH (08:30)
[2022-11-27] MEDS: DULoxetine 30MG CAPSULE (CYMBALTA) PO SCH (08:30)
[2022-11-27] MEDS: FENOFIBRATE 145MG TABLET (TRICOR) PO SCH (08:31)
[2022-11-27] MEDS: CETIRIZINE (ZyrTEC) 10 MG TAB PO SCH (08:31)
[2022-11-27] MEDS: POTASSIUM CHLORIDE 10MEQ SR TABLET PO SCH ×2 (08:31→20:18)
[2022-11-27] MEDS: ROSUVASTATIN 10 MG TAB (CRESTOR) PO SCH (08:31)
[2022-11-27] MEDS ORDERED: METOPROLOL TART 50 MG TAB PO SCH (09:00)
[2022-11-27] MEDS ORDERED: fentaNYL 100 MCG/2 ML INJECTION IV PRN ×2 (11:45→13:25)
[2022-11-27] MEDS ORDERED: MIDAZOLAM INJ 2MG/2ML VIAL IV PRN (11:45)
[2022-11-27] MEDS ORDERED: ROPIvacaine 0.5% 30ML VIAL PN ONE (11:45)
[2022-11-27] MEDS ORDERED: EPINEPHrine INJ 1 MG/ML 1ML AMP PN ONE (11:45)
[2022-11-27] MEDS ORDERED: LIDOCAINE 1% SDV 5ML VIAL PN ONE (11:45)
[2022-11-27] MEDS ORDERED: BUPIVACAINE/EPIN 0.25% 30ML VIAL As Ordered ONE (12:09)
[2022-11-27] MEDS ORDERED: ONDANSETRON 4MG 2ML VIAL As Ordered ONE (12:28)
[2022-11-27] MEDS ORDERED: SUGAMMADEX SODIUM 500 MG/5 ML VIAL (BRIDION) As Ordered ONE (12:28)
[2022-11-27] MEDS ORDERED: LIDOCAINE 2% 100MG/5ML SDV (FOR ANES.) As Ordered ONE (12:28)
[2022-11-27] MEDS ORDERED: propofoL 200 MG/20 ML VIAL As Ordered ONE (12:28)
[2022-11-27] MEDS ORDERED: ROCURONIUM BROMIDE 50MG/5ML VIAL As Ordered ONE (12:28)
[2022-11-27] MEDS ORDERED: fentaNYL 100 MCG/2 ML INJECTION As Ordered ONE (12:52)
[2022-11-27] MEDS ORDERED: MIDAZOLAM INJ 2MG/2ML VIAL As Ordered ONE (13:01)
[2022-11-27] MEDS ORDERED: LR 1,000 ML IV SCH (13:25)
[2022-11-27] MEDS ORDERED: ONDANSETRON 4MG 2ML VIAL IV PRN (13:25)
[2022-11-27] MEDS ORDERED: oxyCODONE 5MG TAB PO PRN (13:25)
[2022-11-27] MEDS ORDERED: HYDROMORPHONE HCL 0.5 MG/ 0.5 ML SYRINGE IV PRN (13:25)
[2022-11-27] MEDS ORDERED: BUMETANIDE 1 MG TAB PO SCH (17:00)
[2022-11-27] MEDS: SPIRONOLACTONE 50 MG TAB PO SCH (17:31)
[2022-11-27] MEDS ORDERED: INSULIN LISPRO (NovoLOG) PER UNIT SC SCH (21:00)
[2022-11-28] MEDS: HEPARIN SOD (PORCINE) 5000UNITS/ML 1ML VIAL/SYRINGE SC SCH (05:56)
[2022-11-28 06:37] VITALS: BP 173/88
[2022-11-28 06:43] LABS: BASO % 0.2 % (0.0-1.0); HEMOGLOBIN 12.5 g/dl (13.5-17.5); LYMPH # 0.8 10^3/uL (1.5-5.0); LYMPH % 5.4 % (24.0-44.0); MEAN CORPUSCULAR HEMOGLOBIN 29.1 pg (27.0-33.0); MEAN CORPUSCULAR HGB CONC 31.3 g/dl (32.0-36.5); MONO % 6.8 % (2.0-8.0); NEUTROPHILS # 12.3 10^3/uL (1.5-8.5); PLATELET COUNT, AUTOMATED 216 10^3/uL (150-450); WHITE BLOOD COUNT 14.2 10^3/uL (4.0-10.0)
[2022-11-28 07:16] LABS: CALCIUM LEVEL 8.3 MG/DL (8.5-10.1); CREATININE FOR GFR 2.13 MG/DL (0.70-1.30); GLOMERULAR FILTRATION RATE 35.5 (>60); POTASSIUM SERUM 3.9 MMOL/L (3.5-5.1)
[2022-11-28] MEDS: INSULIN LISPRO (NovoLOG) PER UNIT SC SCH ×2 (07:30→12:00)
[2022-11-28 07:41] VITALS: BP 169/86
[2022-11-28] MEDS ORDERED: CEPH500T PO (08:55)
[2022-11-28] MEDS ORDERED: ASPIRIN 81MG ENTERIC TABLET PO SCH (09:00)
[2022-11-28] MEDS: metOLazone 2.5 MG TAB PO SCH (10:03)
[2022-11-28] MEDS: BUMETANIDE 1 MG TAB PO SCH (10:04)
[2022-11-28 10:10] VITALS: BP 152/64
[2022-11-28] MEDS: FENOFIBRATE 145MG TABLET (TRICOR) PO SCH (10:10)
[2022-11-28] MEDS: LOSARTAN 50MG TABLET PO SCH (10:10)
[2022-11-28] MEDS: DULoxetine 30MG CAPSULE (CYMBALTA) PO SCH (10:10)
[2022-11-28] MEDS: PREGABALIN 75 MG CAP(LYRICA) PO SCH (10:10)
[2022-11-28] MEDS: CETIRIZINE (ZyrTEC) 10 MG TAB PO SCH (10:11)
[2022-11-28] MEDS: POTASSIUM CHLORIDE 10MEQ SR TABLET PO SCH (10:11)
[2022-11-28] MEDS: allopurinoL 300 MG TAB PO SCH (10:12)
[2022-11-28] MEDS: METOPROLOL TART 50 MG TAB PO SCH (10:12)
[2022-11-28] MEDS: ROSUVASTATIN 10 MG TAB (CRESTOR) PO SCH (10:12)
[2022-11-28] MEDS: PANTOPRAZOLE 40MG VIAL IV SCH (10:13)
[2022-11-28] MEDS ORDERED: BUME2TAB3 PO (10:19)
[2022-11-28] MEDS ORDERED: OXYC1TAB23 PO (10:20)
[2022-11-28] MEDS ORDERED: INSULIN LISPRO (NovoLOG) PER UNIT SC ONE ×2 (12:00→15:15)
[2022-11-28] MEDS ORDERED: CEPHALEXIN 500 MG CAP PO SCH (13:00)
[2022-11-28 13:40] VITALS: BP 162/78
[2022-11-28] MEDS ORDERED: PERCOCET PO (15:08)
[2022-11-28] MEDS ORDERED: MIRA3350 PO (18:06)
== END 2022-11-28 16:15 | disposition home health service (06) | DRG 563 ==
LOC: M ED 17:11 → M ED INP 20:52 → M MS5PR 22:30
PROVIDERS: ADMIT Family Medicine; ATTEND Internal Medicine
PROC: 0QSGXZZ Reposition Right Tibia, External Approach (ICD-10-PCS; principal; 2022-11-27 12:00)
DX: S82.841A Displaced bimalleolar fracture of right lower leg, initial encounter for closed fracture (principal); I13.0 Hypertensive heart and chronic kidney disease with heart failure and stage 1 through stage 4 chronic kidney disease, or unspecified chronic kidney disease; Z68.42 Body mass index [BMI] 45.0-49.9, adult; I50.32 Chronic diastolic (congestive) heart failure; N18.31 Chronic kidney disease, stage 3a; E66.01 Morbid (severe) obesity due to excess calories; G47.33 Obstructive sleep apnea (adult) (pediatric); I25.10 Atherosclerotic heart disease of native coronary artery without angina pectoris; M10.9 Gout, unspecified; Z95.1 Presence of aortocoronary bypass graft; W10.9XXA Fall (on) (from) unspecified stairs and steps, initial encounter; Z79.4 Long term (current) use of insulin; E10.51 Type 1 diabetes mellitus with diabetic peripheral angiopathy without gangrene; E10.22 Type 1 diabetes mellitus with diabetic chronic kidney disease; F17.200 Nicotine dependence, unspecified, uncomplicated; M54.50 Low back pain, unspecified; M19.90 Unspecified osteoarthritis, unspecified site; Y92.009 Unspecified place in unspecified non-institutional (private) residence as the place of occurrence of the external cause; Z88.8 Allergy status to other drugs, medicaments and biological substances; Z79.82 Long term (current) use of aspirin; Z79.899 Other long term (current) drug therapy

== ENCOUNTER → 2022-11-26 | Outpatient (REF) | payer MEDICARE, OTHER ==
[~2022-11-26] MED LIST changes: +ACET-897 PO; +AMMO12CR7 TOP; +CEPH500T PO; +METO50TA7 PO; +OXYC1TAB23 PO; +PERCOCET PO
[2022-11-26 14:34] LABS: CALCIUM LEVEL 8.7 MG/DL (8.5-10.1); CHOLESTEROL RISK RATIO 3.5 (<5); CREATININE FOR GFR 1.82 MG/DL (0.70-1.30); GLOMERULAR FILTRATION RATE 42.5 (>60); HDL CHOLESTEROL 36.2 MG/DL (>40); LDL CHOLESTEROL 47.6 MG/DL (<100); NON-HDL-C 90.8 MG/DL; POTASSIUM SERUM 3.9 MMOL/L (3.5-5.1)
[2022-11-26 14:47] LABS: CREATININE, URINE 17.9 MG/DL
[2022-11-26 14:59] LABS: MAU/CREAT RATIO 3016.7 MCG/MG (0.0-30.0)
== END ==
LOC: M LAB REF 12:08
PROVIDERS: ATTEND Nurse Practitioner Family
DX: E10.9 Type 1 diabetes mellitus without complications (principal); E78.00 Pure hypercholesterolemia, unspecified

== ENCOUNTER → 2022-12-05 | Outpatient (CLI) | payer MEDICARE, OTHER ==
[~2022-12-05] MED LIST changes: +ACET-897 PO; +AMMO12CR7 TOP; +CEPH500T PO; +METO50TA7 PO; +OXYC1TAB23 PO; +PERCOCET PO
== END ==
LOC: M SOG 08:11
PROVIDERS: ATTEND Orthopaedic Surgery
DX: Z47.89 Encounter for other orthopedic aftercare (principal)

== ENCOUNTER → 2022-12-07 | Outpatient (REF) | payer MEDICARE, OTHER ==
[~2022-12-07] MED LIST changes: +FLUT15.820; -FLUT15.820 NARES
[2022-12-07 16:18] LABS: HEMATOCRIT 41.6 % (42.0-52.0); HEMOGLOBIN 13.5 g/dl (13.5-17.5); MEAN CORPUSCULAR HEMOGLOBIN 29.3 pg (27.0-33.0); MEAN CORPUSCULAR HGB CONC 32.5 g/dl (32.0-36.5); MEAN CORPUSCULAR VOLUME 90.4 fl (80.0-96.0); PLATELET COUNT, AUTOMATED 297 10^3/uL (150-450); WHITE BLOOD COUNT 11.9 10^3/uL (4.0-10.0)
[2022-12-07 16:43] LABS: CREATININE FOR GFR 2.11 MG/DL (0.70-1.30); GLOMERULAR FILTRATION RATE 35.9 (>60); POTASSIUM SERUM 4.2 MMOL/L (3.5-5.1)
== END ==
LOC: M SHH 15:50
PROVIDERS: ATTEND Internal Medicine
DX: S82.841A Displaced bimalleolar fracture of right lower leg, initial encounter for closed fracture (principal)

== ENCOUNTER → 2022-12-10 | Outpatient (CLI) | payer MEDICARE, OTHER | LOC: M SOG 08:25 → M ED INP 19:12 → UNDOADMIN 19:12 | PROVIDERS: ATTEND Orthopaedic Surgery | DX: S82.841A Displaced bimalleolar fracture of right lower leg, initial encounter for closed fracture (principal); Z79.899 Other long term (current) drug therapy ==

== ENCOUNTER → 2022-12-24 | Outpatient (CLI) | payer MEDICARE, OTHER ==
[~2022-12-24] MED LIST changes: +DOXY100T PO; +FLUT50SP17; -FLUTISP; +LEVO1TAB40 PO
== END ==
LOC: M SOG 08:02
PROVIDERS: ATTEND Orthopaedic Surgery
DX: S82.841D Displaced bimalleolar fracture of right lower leg, subsequent encounter for closed fracture with routine healing (principal)

== ENCOUNTER → 2023-01-03 | Outpatient (REF) | payer MEDICARE, OTHER ==
[2023-01-03 17:39] LABS: BASO # 0.1 10^3/uL (0.0-0.2); BASO % 0.4 % (0.0-1.0); EOS # 0.1 10^3/uL (0.0-0.5); HEMATOCRIT 40.1 % (42.0-52.0); HEMOGLOBIN 12.9 g/dl (13.5-17.5); LYMPH # 1.2 10^3/uL (1.5-5.0); LYMPH % 9.3 % (24.0-44.0); MEAN CORPUSCULAR HEMOGLOBIN 29.4 pg (27.0-33.0); MEAN CORPUSCULAR HGB CONC 32.2 g/dl (32.0-36.5); MEAN CORPUSCULAR VOLUME 91.3 fl (80.0-96.0); MONO # 0.9 10^3/uL (0.0-0.8); MONO % 6.9 % (2.0-8.0); NEUTROPHILS # 10.1 10^3/uL (1.5-8.5); NEUTROPHILS % 81.3 % (36.0-66.0); PLATELET COUNT, AUTOMATED 288 10^3/uL (150-450); RED BLOOD COUNT 4.39 10^6/uL (4.30-6.10); WHITE BLOOD COUNT 12.4 10^3/uL (4.0-10.0)
[2023-01-03 18:08] LABS: CALCIUM LEVEL 8.5 MG/DL (8.5-10.1); CREATININE FOR GFR 2.23 MG/DL (0.70-1.30); GLOMERULAR FILTRATION RATE 33.6 (>60); POTASSIUM SERUM 4.5 MMOL/L (3.5-5.1)
[2023-01-03 19:38] LABS: HEMOGLOBIN A1c 8.4 % (4.0-6.0)
== END ==
LOC: M LAB REF 17:20
PROVIDERS: ATTEND Nurse Practitioner Family
DX: E10.9 Type 1 diabetes mellitus without complications (principal); D72.829 Elevated white blood cell count, unspecified

== ENCOUNTER → 2023-01-14 | Outpatient (CLI) | payer MEDICARE, OTHER ==
[~2023-01-14] MED LIST changes: -LOSA100T45; -LOSA100T45 PO; +LOSA100T46; +LOSA100T46 PO
== END ==
LOC: M SOG 08:01
PROVIDERS: ATTEND Orthopaedic Surgery
DX: S82.841D Displaced bimalleolar fracture of right lower leg, subsequent encounter for closed fracture with routine healing (principal)

== ENCOUNTER → 2023-02-19 | Outpatient (POV) | payer MEDICARE, OTHER ==
[~2023-02-19] VITALS: Ht 170.2 cm; Wt 138.6 kg
[2023-02-19 08:30] VITALS: BP 182/96; O2SAT 97
== END ==
LOC: M IRPOV 08:20
PROVIDERS: ATTEND Radiology Diagnostic Radiology
DX: L97.219 Non-pressure chronic ulcer of right calf with unspecified severity (principal); I87.2 Venous insufficiency (chronic) (peripheral); R22.43 Localized swelling, mass and lump, lower limb, bilateral; Z79.82 Long term (current) use of aspirin; Z79.4 Long term (current) use of insulin; Z88.8 Allergy status to other drugs, medicaments and biological substances

== ENCOUNTER → 2023-02-27 | Outpatient (CLI) | payer MEDICARE, OTHER | LOC: M SOG 08:15 | PROVIDERS: ATTEND Orthopaedic Surgery | DX: S82.841D Displaced bimalleolar fracture of right lower leg, subsequent encounter for closed fracture with routine healing (principal) ==

== ENCOUNTER → 2023-03-01 | Outpatient (CLI) | payer MEDICARE, OTHER ==
[~2023-03-01] MED LIST changes: -ROSU20TA5 PO; +ROSU20TA61 PO
== END ==
LOC: M RAD 10:58
PROVIDERS: ATTEND Radiology Diagnostic Radiology
DX: I87.2 Venous insufficiency (chronic) (peripheral) (principal); M79.89 Other specified soft tissue disorders

== ENCOUNTER → 2023-04-02 | Outpatient (CLI) | payer MEDICARE, OTHER ==
[2023-04-02 10:06] LABS: BILIRUBIN,DIRECT 0.2 MG/DL (<0.4); BILIRUBIN,TOTAL 0.4 MG/DL (0.3-1.2); CHOLESTEROL RISK RATIO 5.27 (<5); HDL CHOLESTEROL 20.3 MG/DL (>40); LDL CHOLESTEROL 19.9 MG/DL (<100); NON-HDL-C 86.7 MG/DL; TOTAL PROTEIN 6.1 G/DL (5.7-8.2)
[2023-04-02 10:07] LABS: HEMOGLOBIN A1c 8.8 % (4.0-6.0)
== END ==
LOC: M WUC 08:23
PROVIDERS: ATTEND Physician Assistant
DX: I25.10 Atherosclerotic heart disease of native coronary artery without angina pectoris (principal); E78.00 Pure hypercholesterolemia, unspecified; E08.21 Diabetes mellitus due to underlying condition with diabetic nephropathy

== ENCOUNTER → 2023-09-13 | Outpatient (REF) | payer MEDICARE, OTHER ==
[~2023-09-13] MED LIST changes: +CEFD1CAP9 PO; -CEFD300C41 PO; -FLUT50SP17; +FLUTISP
[2023-09-13 16:54] LABS: BASO # 0.1 10^3/uL (0.0-0.2); BASO % 0.3 % (0.0-1.0); EOS # 0.1 10^3/uL (0.0-0.5); EOS % 0.9 % (0.0-3.0); HEMATOCRIT 42.1 % (42.0-52.0); HEMOGLOBIN 13.8 g/dl (13.5-17.5); LYMPH # 1.4 10^3/uL (1.5-5.0); LYMPH % 9.6 % (24.0-44.0); MEAN CORPUSCULAR HEMOGLOBIN 29.6 pg (27.0-33.0); MEAN CORPUSCULAR HGB CONC 32.8 g/dl (32.0-36.5); MEAN CORPUSCULAR VOLUME 90.1 fl (80.0-96.0); MONO # 1.1 10^3/uL (0.0-0.8); MONO % 7.3 % (2.0-8.0); NEUTROPHILS # 11.9 10^3/uL (1.5-8.5); NEUTROPHILS % 79.7 % (36.0-66.0); PLATELET COUNT, AUTOMATED 275 10^3/uL (150-450); RED BLOOD COUNT 4.67 10^6/uL (4.30-6.10); WHITE BLOOD COUNT 14.9 10^3/uL (4.0-10.0)
[2023-09-13 17:33] LABS: CALCIUM LEVEL 9.1 MG/DL (8.5-10.1); CREATININE FOR GFR 2.37 MG/DL (0.70-1.30); GLOMERULAR FILTRATION RATE 31.2 (>60); POTASSIUM SERUM 4.8 MMOL/L (3.5-5.1)
== END ==
LOC: M LAB REF 16:28
PROVIDERS: ATTEND Nurse Practitioner Family
DX: E10.9 Type 1 diabetes mellitus without complications (principal)

== ENCOUNTER → 2023-09-24 | Outpatient (REF) | payer MEDICARE, OTHER ==
[~2023-09-24] MED LIST changes: +AMOX500C PO; +[UNRECOGNIZED DRUG - OTHER]
[2023-09-24 17:19] LABS: BASO # 0.1 10^3/uL (0.0-0.2); BASO % 0.8 % (0.0-1.0); EOS # 0.2 10^3/uL (0.0-0.5); EOS % 1.2 % (0.0-3.0); HEMATOCRIT 41.8 % (42.0-52.0); HEMOGLOBIN 13.5 g/dl (13.5-17.5); LYMPH # 1.2 10^3/uL (1.5-5.0); LYMPH % 8.9 % (24.0-44.0); MEAN CORPUSCULAR HEMOGLOBIN 29.7 pg (27.0-33.0); MEAN CORPUSCULAR HGB CONC 32.3 g/dl (32.0-36.5); MEAN CORPUSCULAR VOLUME 91.9 fl (80.0-96.0); MONO # 0.9 10^3/uL (0.0-0.8); MONO % 7.2 % (2.0-8.0); NEUTROPHILS # 10.4 10^3/uL (1.5-8.5); NEUTROPHILS % 80.4 % (36.0-66.0); PLATELET COUNT, AUTOMATED 272 10^3/uL (150-450); RED BLOOD COUNT 4.55 10^6/uL (4.30-6.10)
== END ==
LOC: M LAB REF 16:34
PROVIDERS: ATTEND Nurse Practitioner Family
DX: D72.829 Elevated white blood cell count, unspecified (principal)

== ENCOUNTER 2023-10-04 17:42 | Inpatient (IN) | payer MEDICARE ==
[~2023-10-04] VITALS: Ht 172.7 cm; Wt 147.7 kg
[~2023-10-04 17:42] MED LIST changes: -AZEL1SPR3; -CLIN-250 PO; -MAGN400T35 PO; -METO5TA PO; -THERTAB52 PO; -TORS100T PO; -ZINC20OI21
[2023-10-04] MEDS ORDERED: ZINC20OI21 (18:03)
[2023-10-04] MEDS ORDERED: TORS100T PO (18:03)
[2023-10-04] MEDS ORDERED: CLIN-250 PO (18:03)
[2023-10-04] MEDS ORDERED: AZEL1SPR3 (18:03)
[2023-10-04] MEDS ORDERED: MAGN400T35 PO (18:03)
[2023-10-04] MEDS ORDERED: FUROSEMIDE 100MG/10ML VIAL IV ONE (20:00)
[2023-10-04 21:41] LABS: BASO # 0.1 10^3/uL (0.0-0.2); BASO % 0.4 % (0.0-1.0); EOS # 0.3 10^3/uL (0.0-0.5); EOS % 2.6 % (0.0-3.0); HEMATOCRIT 41.6 % (42.0-52.0); HEMOGLOBIN 13.6 g/dl (13.5-17.5); LYMPH # 1.2 10^3/uL (1.5-5.0); LYMPH % 10.1 % (24.0-44.0); MEAN CORPUSCULAR HEMOGLOBIN 29.8 pg (27.0-33.0); MEAN CORPUSCULAR HGB CONC 32.7 g/dl (32.0-36.5); MONO # 0.9 10^3/uL (0.0-0.8); MONO % 7.6 % (2.0-8.0); NEUTROPHILS # 8.9 10^3/uL (1.5-8.5); NEUTROPHILS % 78.2 % (36.0-66.0); PLATELET COUNT, AUTOMATED 282 10^3/uL (150-450); RED BLOOD COUNT 4.57 10^6/uL (4.30-6.10); WHITE BLOOD COUNT 11.4 10^3/uL (4.0-10.0)
[2023-10-04 21:54] LABS: PROTHROMBIN TIME 12.9 SECONDS (12.5-14.5)
[2023-10-04 22:05] LABS: ALBUMIN 3.2 G/DL (3.2-5.2); ALKALINE PHOSPHATASE 129 U/L (46-116); ALT/SGPT 28 U/L (7.0-40); AST/SGOT 22 U/L (<34); BILIRUBIN,DIRECT < 0.1 MG/DL (<0.4); BILIRUBIN,TOTAL 0.2 MG/DL (0.3-1.2); BLOOD UREA NITROGEN 82 MG/DL (9-23); CALCIUM LEVEL 8.7 MG/DL (8.5-10.1); CARBON DIOXIDE LEVEL 28 MMOL/L (20-31); CHLORIDE LEVEL 103 MMOL/L (98-107); CREATININE FOR GFR 2.68 MG/DL (0.70-1.30); GLOMERULAR FILTRATION RATE 27.1 (>60); GLUCOSE, FASTING 136 MG/DL (60-100); POTASSIUM SERUM 3.7 MMOL/L (3.5-5.1); SODIUM LEVEL 139 MMOL/L (136-145); TOTAL PROTEIN 6.9 G/DL (5.7-8.2)
[2023-10-04 22:06] LABS: CK-MB VALUE MASS 1.5 NG/ML (<3.6)
[2023-10-04 22:09] LABS: THYROID STIMULATING HORMONE 1.472 uIU/ML (0.55-4.78); THYROXINE (T4) 5.7 UG/DL (4.5-10.9)
[2023-10-04 22:11] LABS: CPK CREATINE PHOSPHOKINASE 97 U/L (46-171); MB/CK RELATIVE INDEX 1.54 (< OR =4)
[2023-10-04] MEDS ORDERED: METO5TA PO (23:46)
[2023-10-04] MEDS ORDERED: THERTAB52 PO (23:46)
[2023-10-04] MEDS ORDERED: HOME MED LIST COMPLETE! XX SCH (23:50)
[2023-10-05] MEDS ORDERED: ACETAMINOPHEN TAB 650MG DOSE (2X325MG) PO PRN (00:50)
[2023-10-05] MEDS ORDERED: MAALOX 30 ML SUSP *UDC PO PRN (00:50)
[2023-10-05] MEDS ORDERED: GLUCAGON INJ 1MG VIAL SC PRN (00:50)
[2023-10-05] MEDS ORDERED: GLUCOSE 4GM CHEW TABLET PO PRN (00:50)
[2023-10-05] MEDS ORDERED: DEXTROSE 50% 50ML SYRINGE IV PRN (00:50)
[2023-10-05] MEDS ORDERED: MOM 30ML SUSPENSION UDC PO PRN (00:50)
[2023-10-05] MEDS: HEPARIN SOD (PORCINE) 5000UNITS/ML 1ML VIAL/SYRINGE SC SCH ×3 (05:48→20:58)
[2023-10-05 06:27] LABS: HEMOGLOBIN 13.1 g/dl (13.5-17.5); MEAN CORPUSCULAR HEMOGLOBIN 29.6 pg (27.0-33.0); MEAN CORPUSCULAR HGB CONC 32.8 g/dl (32.0-36.5); MEAN CORPUSCULAR VOLUME 90.5 fl (80.0-96.0); PLATELET COUNT, AUTOMATED 245 10^3/uL (150-450); RED BLOOD COUNT 4.42 10^6/uL (4.30-6.10); WHITE BLOOD COUNT 10.7 10^3/uL (4.0-10.0)
[2023-10-05 07:03] LABS: ALBUMIN 2.8 G/DL (3.2-5.2); BILIRUBIN,TOTAL 0.3 MG/DL (0.3-1.2); CALCIUM LEVEL 8.9 MG/DL (8.5-10.1); CREATININE FOR GFR 2.44 MG/DL (0.70-1.30); GLOMERULAR FILTRATION RATE 30.2 (>60); MAGNESIUM LEVEL 1.8 MG/DL (1.8-2.4); PHOSPHORUS LEVEL 6.3 MG/DL (2.5-4.9); POTASSIUM SERUM 4.1 MMOL/L (3.5-5.1); TOTAL PROTEIN 6.2 G/DL (5.7-8.2)
[2023-10-05] MEDS: INSULIN LISPRO (NovoLOG) PER UNIT SC SCH ×3 (08:38→17:05)
[2023-10-05] MEDS: DOCUSATE SODIUM 100MG CAPSULE PO SCH ×2 (09:00→20:59)
[2023-10-05] MEDS: NICOTINE 21MG/24HR 1 EA TRANSDERMAL TD SCH (09:00)
[2023-10-05] MEDS: PREGABALIN 75 MG CAP(LYRICA) PO SCH ×2 (09:03→20:58)
[2023-10-05] MEDS: LOSARTAN 50MG TABLET PO SCH (09:03)
[2023-10-05] MEDS: ASPIRIN 81MG ENTERIC TABLET PO SCH (09:03)
[2023-10-05] MEDS: OMEPRAZOLE 20MG CAP PO SCH (09:03)
[2023-10-05] MEDS: ROSUVASTATIN 10 MG TAB (CRESTOR) PO SCH (09:04)
[2023-10-05] MEDS: DULoxetine 30MG CAPSULE (CYMBALTA) PO SCH (09:04)
[2023-10-05] MEDS: POTASSIUM CHLORIDE 10MEQ SR TABLET PO SCH ×2 (09:04→20:59)
[2023-10-05] MEDS: METOPROLOL TART 50 MG TAB PO SCH ×2 (09:04→20:59)
[2023-10-05] MEDS: FUROSEMIDE 40MG/4ML VIAL IV SCH ×2 (09:04→17:04)
[2023-10-05] MEDS: CYANOCOBALAMIN 500 MCG TAB PO SCH (09:04)
[2023-10-05] MEDS: allopurinoL 300 MG TAB PO SCH (09:04)
[2023-10-05] MEDS: CETIRIZINE (ZyrTEC) 10 MG TAB PO SCH (09:04)
[2023-10-05] MEDS: AZELASTINE 137MCG NASAL SPY 30 ML (ASTELIN) SCH ×2 (09:59→21:05)
[2023-10-05] MEDS: FENOFIBRATE 145MG TABLET (TRICOR) PO SCH (09:59)
[2023-10-05 10:28] LABS: APPEARANCE, URINE CLEAR (CLEAR); BACTERIA, URINE AUTO NEGATIVE (NEGATIVE); BILIRUBIN, URINE AUTO NEGATIVE (NEGATIVE); BLOOD, URINE BLOOD 1+ (NEGATIVE); COLOR, URINE YELLOW (YELLOW); GLUCOSE, URINE (UA) AUTO 1+ mg/dL (NEGATIVE); KETONE, URINE AUTO NEGATIVE (NEGATIVE); LEUKOCYTE ESTERASE, URINE AUTO NEGATIVE (NEGATIVE); NITRITE, URINE AUTO NEGATIVE (NEGATIVE); PROTEIN, URINE AUTO 2+ mg/dL (NEGATIVE); RBC, URINE AUTO 1 /HPF (0-3); SQUAMOUS EPITHELIAL CELL UR AU 0 /HPF (0-6); UROBILINOGEN, URINE AUTO 0.2 mg/dL (0.0-2.0); WBC, URINE AUTO 0 /HPF (0-3)
[2023-10-05 15:05] VITALS: BP 141/83; TEMP 97.5; O2SAT 93
[2023-10-05 20:18] VITALS: BP 157/74; TEMP 97.7; O2SAT 93
[2023-10-05] MEDS ORDERED: INSULIN LISPRO (NovoLOG) PER UNIT SC ONE (20:35)
[2023-10-05] MEDS: VITAMIN D 1,000 INTERNATIONAL UNITS TABLET PO SCH (20:58)
[2023-10-05] MEDS: MAGNESIUM OXIDE 400MG TAB (MAG-OX) PO SCH (20:59)
[2023-10-05] MEDS: SPIRONOLACTONE 50 MG TAB PO SCH (20:59)
[2023-10-05] MEDS ORDERED: INSULIN LISPRO (NovoLOG) PER UNIT SC SCH (21:00)
[2023-10-05] MEDS ORDERED: LEVEMIR (INSULIN DETEMIR) 1 UNITS/0.01ML SC SCH (21:00)
[2023-10-06] MEDS ORDERED: INSULIN LISPRO (NovoLOG) PER UNIT SC ONE (05:20)
[2023-10-06] MEDS: HEPARIN SOD (PORCINE) 5000UNITS/ML 1ML VIAL/SYRINGE SC SCH ×3 (05:51→21:16)
[2023-10-06 06:17] LABS: HEMATOCRIT 37.3 % (42.0-52.0); MEAN CORPUSCULAR HEMOGLOBIN 29.6 pg (27.0-33.0); MEAN CORPUSCULAR HGB CONC 32.2 g/dl (32.0-36.5); MEAN CORPUSCULAR VOLUME 92.1 fl (80.0-96.0); PLATELET COUNT, AUTOMATED 242 10^3/uL (150-450); RED BLOOD COUNT 4.05 10^6/uL (4.30-6.10); WHITE BLOOD COUNT 9.5 10^3/uL (4.0-10.0)
[2023-10-06 06:20] VITALS: BP 137/62; TEMP 97.9; O2SAT 95
[2023-10-06 06:45] LABS: ALBUMIN 2.5 G/DL (3.2-5.2); BILIRUBIN,TOTAL 0.3 MG/DL (0.3-1.2); CALCIUM LEVEL 8.4 MG/DL (8.5-10.1); CREATININE FOR GFR 2.61 MG/DL (0.70-1.30); GLOMERULAR FILTRATION RATE 27.9 (>60); PHOSPHORUS LEVEL 5.5 MG/DL (2.5-4.9); POTASSIUM SERUM 4.4 MMOL/L (3.5-5.1); TOTAL PROTEIN 5.7 G/DL (5.7-8.2)
[2023-10-06] MEDS ORDERED: HumuLIN R (REGULAR) INSULIN (NovoLIN R) **100U/ML** PER UNIT IV STA ×3 (06:54→11:26)
[2023-10-06] MEDS: INSULIN LISPRO (NovoLOG) PER UNIT SC SCH (08:23)
[2023-10-06] MEDS: FUROSEMIDE 40MG/4ML VIAL IV SCH ×2 (08:23→16:20)
[2023-10-06] MEDS: DOCUSATE SODIUM 100MG CAPSULE PO SCH ×2 (08:24→21:17)
[2023-10-06] MEDS: PREGABALIN 75 MG CAP(LYRICA) PO SCH ×2 (08:24→21:16)
[2023-10-06] MEDS: DULoxetine 30MG CAPSULE (CYMBALTA) PO SCH (08:24)
[2023-10-06] MEDS: allopurinoL 300 MG TAB PO SCH (08:25)
[2023-10-06] MEDS: ASPIRIN 81MG ENTERIC TABLET PO SCH (08:25)
[2023-10-06] MEDS: LOSARTAN 50MG TABLET PO SCH (08:25)
[2023-10-06] MEDS: CYANOCOBALAMIN 500 MCG TAB PO SCH (08:25)
[2023-10-06] MEDS: FENOFIBRATE 145MG TABLET (TRICOR) PO SCH (08:25)
[2023-10-06] MEDS: POTASSIUM CHLORIDE 10MEQ SR TABLET PO SCH ×2 (08:25→21:17)
[2023-10-06] MEDS: OMEPRAZOLE 20MG CAP PO SCH (08:25)
[2023-10-06] MEDS: CETIRIZINE (ZyrTEC) 10 MG TAB PO SCH (08:25)
[2023-10-06] MEDS: ROSUVASTATIN 10 MG TAB (CRESTOR) PO SCH (08:25)
[2023-10-06] MEDS: NICOTINE 21MG/24HR 1 EA TRANSDERMAL TD SCH (08:26)
[2023-10-06] MEDS: METOPROLOL TART 50 MG TAB PO SCH ×2 (08:26→21:17)
[2023-10-06] MEDS: AZELASTINE 137MCG NASAL SPY 30 ML (ASTELIN) SCH ×2 (08:27→21:18)
[2023-10-06] MEDS ORDERED: LEVEMIR (INSULIN DETEMIR) 1 UNITS/0.01ML SC SCH (09:00)
[2023-10-06 14:45] LABS: CALCIUM LEVEL 9.1 MG/DL (8.5-10.1); CREATININE FOR GFR 2.44 MG/DL (0.70-1.30); GLOMERULAR FILTRATION RATE 30.2 (>60); POTASSIUM SERUM 4.2 MMOL/L (3.5-5.1)
[2023-10-06 21:00] VITALS: BP 159/78; TEMP 97.7; O2SAT 95
[2023-10-06] MEDS: SPIRONOLACTONE 50 MG TAB PO SCH (21:16)
[2023-10-06] MEDS: MAGNESIUM OXIDE 400MG TAB (MAG-OX) PO SCH (21:17)
[2023-10-06] MEDS: VITAMIN D 1,000 INTERNATIONAL UNITS TABLET PO SCH (21:18)
[2023-10-07 05:09] VITALS: BP 147/73; TEMP 97.9; O2SAT 98
[2023-10-07] MEDS: HEPARIN SOD (PORCINE) 5000UNITS/ML 1ML VIAL/SYRINGE SC SCH (06:03)
[2023-10-07 06:53] LABS: ALBUMIN 2.6 G/DL (3.2-5.2); CALCIUM LEVEL 8.9 MG/DL (8.5-10.1); CREATININE FOR GFR 2.59 MG/DL (0.70-1.30); GLOMERULAR FILTRATION RATE 28.2 (>60); POTASSIUM SERUM 3.6 MMOL/L (3.5-5.1)
[2023-10-07] MEDS: CYANOCOBALAMIN 500 MCG TAB PO SCH (08:40)
[2023-10-07] MEDS: LOSARTAN 50MG TABLET PO SCH (08:40)
[2023-10-07] MEDS: ASPIRIN 81MG ENTERIC TABLET PO SCH (08:40)
[2023-10-07] MEDS: DULoxetine 30MG CAPSULE (CYMBALTA) PO SCH (08:40)
[2023-10-07 08:41] VITALS: BP 189/90
[2023-10-07] MEDS: FENOFIBRATE 145MG TABLET (TRICOR) PO SCH (08:41)
[2023-10-07] MEDS: METOPROLOL TART 50 MG TAB PO SCH (08:41)
[2023-10-07] MEDS: CETIRIZINE (ZyrTEC) 10 MG TAB PO SCH (08:41)
[2023-10-07] MEDS: allopurinoL 300 MG TAB PO SCH (08:41)
[2023-10-07] MEDS: POTASSIUM CHLORIDE 10MEQ SR TABLET PO SCH (08:41)
[2023-10-07] MEDS: OMEPRAZOLE 20MG CAP PO SCH (08:41)
[2023-10-07] MEDS: PREGABALIN 75 MG CAP(LYRICA) PO SCH (08:41)
[2023-10-07] MEDS: ROSUVASTATIN 10 MG TAB (CRESTOR) PO SCH (08:42)
[2023-10-07] MEDS: DOCUSATE SODIUM 100MG CAPSULE PO SCH ×2 (08:42→08:47)
[2023-10-07] MEDS: AZELASTINE 137MCG NASAL SPY 30 ML (ASTELIN) SCH (08:42)
[2023-10-07] MEDS: FUROSEMIDE 40MG/4ML VIAL IV SCH (08:42)
[2023-10-07] MEDS: NICOTINE 21MG/24HR 1 EA TRANSDERMAL TD SCH (08:42)
[2023-10-07 13:27] VITALS: BP 134/69
== END 2023-10-07 13:48 | disposition home or self-care (01) | DRG 291 ==
LOC: M ED 17:42 → M ED INP 23:26 → ENRESERV 10-05 14:08 → M MSPAV 10-05 15:14
PROVIDERS: ADMIT Internal Medicine; ATTEND Student in an Organized Health Care Education/Training Program
DX: I13.0 Hypertensive heart and chronic kidney disease with heart failure and stage 1 through stage 4 chronic kidney disease, or unspecified chronic kidney disease (principal); I50.33 Acute on chronic diastolic (congestive) heart failure; N17.9 Acute kidney failure, unspecified; E11.22 Type 2 diabetes mellitus with diabetic chronic kidney disease; F17.210 Nicotine dependence, cigarettes, uncomplicated; K21.9 Gastro-esophageal reflux disease without esophagitis; E78.5 Hyperlipidemia, unspecified; Z95.1 Presence of aortocoronary bypass graft; I25.10 Atherosclerotic heart disease of native coronary artery without angina pectoris; K57.90 Diverticulosis of intestine, part unspecified, without perforation or abscess without bleeding; G47.33 Obstructive sleep apnea (adult) (pediatric); M10.9 Gout, unspecified; N18.30 Chronic kidney disease, stage 3 unspecified; I89.0 Lymphedema, not elsewhere classified; Z96.41 Presence of insulin pump (external) (internal); Z88.8 Allergy status to other drugs, medicaments and biological substances; Z79.899 Other long term (current) drug therapy; Z79.82 Long term (current) use of aspirin

== ENCOUNTER → 2023-10-04 | Outpatient (CLI) | payer MEDICARE ==
[~2023-10-04] MED LIST changes: +AZEL1SPR3; +CLIN-250 PO; +MAGN400T35 PO; +METO5TA PO; +THERTAB52 PO; +TORS100T PO; +ZINC20OI21
== END ==
LOC: M RAD 13:49
PROVIDERS: ATTEND Physician Assistant
DX: R60.0 Localized edema (principal)

== ENCOUNTER 2023-10-25 11:33 | Emergency (ER) | payer MEDICARE ==
[~2023-10-25] VITALS: Ht 172.7 cm; Wt 149.0 kg
[~2023-10-25 11:33] MED LIST changes: +AZEL1SPR3; +CLIN-250 PO; +MAGN400T35 PO; +METO5TA PO; +THERTAB52 PO; +TORS100T PO; +ZINC20OI21
[2023-10-25] MEDS ORDERED: PRED20TA PO (13:04)
[2023-10-25 13:40] VITALS: O2SAT 94
[2023-10-25 14:20] VITALS: BP 143/78; TEMP 97.8
== END 2023-10-25 14:25 | disposition home or self-care (01) ==
LOC: M ED 11:33
DX: I87.392 Chronic venous hypertension (idiopathic) with other complications of left lower extremity (principal); L95.9 Vasculitis limited to the skin, unspecified; E11.9 Type 2 diabetes mellitus without complications; I10 Essential (primary) hypertension; E78.5 Hyperlipidemia, unspecified; M10.9 Gout, unspecified; F17.200 Nicotine dependence, unspecified, uncomplicated; Z98.84 Bariatric surgery status; Z88.8 Allergy status to other drugs, medicaments and biological substances; Z79.82 Long term (current) use of aspirin; Z79.811 Long term (current) use of aromatase inhibitors; Z79.83 Long term (current) use of bisphosphonates; Z79.52 Long term (current) use of systemic steroids; Z79.899 Other long term (current) drug therapy

== ENCOUNTER 2023-11-26 20:17 | Inpatient (IN) | payer MEDICARE ==
[~2023-11-26] VITALS: Ht 172.7 cm; Wt 150.2 kg
[~2023-11-26 20:17] MED LIST changes: +PRED20TA PO
[2023-11-26 22:26] LABS: BASO # 0.1 10^3/uL (0.0-0.2); BASO % 0.3 % (0.0-1.0); EOS # 0.1 10^3/uL (0.0-0.5); EOS % 0.4 % (0.0-3.0); HEMATOCRIT 38.3 % (42.0-52.0); HEMOGLOBIN 12.7 g/dl (13.5-17.5); LYMPH # 0.5 10^3/uL (1.5-5.0); LYMPH % 2.6 % (24.0-44.0); MEAN CORPUSCULAR HEMOGLOBIN 29.9 pg (27.0-33.0); MEAN CORPUSCULAR HGB CONC 33.2 g/dl (32.0-36.5); MEAN CORPUSCULAR VOLUME 90.1 fl (80.0-96.0); MONO # 0.6 10^3/uL (0.0-0.8); MONO % 2.7 % (2.0-8.0); NEUTROPHILS # 19.4 10^3/uL (1.5-8.5); NEUTROPHILS % 93.3 % (36.0-66.0); PLATELET COUNT, AUTOMATED 277 10^3/uL (150-450); RED BLOOD COUNT 4.25 10^6/uL (4.30-6.10); WHITE BLOOD COUNT 20.8 10^3/uL (4.0-10.0)
[2023-11-26 22:40] LABS: INR 1.23; PARTIAL THROMBOPLASTIN TIME 31.6 SECONDS (24.8-34.2); PROTHROMBIN TIME 15.1 SECONDS (12.5-14.5)
[2023-11-26 22:46] LABS: ALBUMIN 2.8 G/DL (3.2-5.2); BILIRUBIN,DIRECT 0.2 MG/DL (<0.4); BILIRUBIN,TOTAL 0.4 MG/DL (0.3-1.2); CALCIUM LEVEL 7.9 MG/DL (8.5-10.1); CREATININE FOR GFR 4.21 MG/DL (0.70-1.30); GLOMERULAR FILTRATION RATE 16.1 (>60); POTASSIUM SERUM 4.5 MMOL/L (3.5-5.1); TOTAL PROTEIN 6.3 G/DL (5.7-8.2)
[2023-11-26] MEDS: NS 1,000 ML IV ONE (23:02)
[2023-11-26] MEDS: IBUPROFEN 600MG TAB PO ONE (23:02)
[2023-11-26] MEDS: PIPERACILLIN/TAZOBACTAM SOD 4.5 GM in D5W MINI-BAG PLUS 50 ML IV ONE (23:02)
[2023-11-26] MEDS: ACETAMINOPHEN TAB 650MG DOSE (2X325MG) PO ONE (23:09)
[2023-11-27] VITALS (35 sets, daily range): BP systolic 87–186; BP diastolic 46–81; TEMP 100.8–102.8; O2SAT 85–99
[2023-11-27 00:08] LABS: AMORPHOUS SEDIMENT SMALL (NEGATIVE); APPEARANCE, URINE HAZY (CLEAR); BACTERIA, URINE AUTO NEGATIVE (NEGATIVE); BILIRUBIN, URINE AUTO NEGATIVE (NEGATIVE); BLOOD, URINE BLOOD 1+ (NEGATIVE); COLOR, URINE YELLOW (YELLOW); GLUCOSE, URINE (UA) AUTO NEGATIVE (NEGATIVE); KETONE, URINE AUTO NEGATIVE (NEGATIVE); LEUKOCYTE ESTERASE, URINE AUTO NEGATIVE (NEGATIVE); MUCUS, URINE SMALL (NEGATIVE); NITRITE, URINE AUTO NEGATIVE (NEGATIVE); PROTEIN, URINE AUTO 3+ mg/dL (NEGATIVE); RBC, URINE AUTO 10 /HPF (0-3); SPECIFIC GRAVITY URINE AUTO 1.014 (1.002-1.035); SQUAMOUS EPITHELIAL CELL UR AU 0 /HPF (0-6); UROBILINOGEN, URINE AUTO 0.2 mg/dL (0.0-2.0); WBC, URINE AUTO 2 /HPF (0-3)
[2023-11-27] MEDS ORDERED: HOME MED LIST COMPLETE! XX SCH (00:10)
[2023-11-27] MEDS ORDERED: CLOB5CR TOP (00:10)
[2023-11-27] MEDS ORDERED: ACET-897 PO (00:10)
[2023-11-27] MEDS ORDERED: MAALOX 30 ML SUSP *UDC PO PRN (02:45)
[2023-11-27] MEDS ORDERED: MOM 30ML SUSPENSION UDC PO PRN (02:45)
[2023-11-27] MEDS ORDERED: VANCOMYCIN HCL 1,000 MG, VIAL MATE ADAPTER 1 EACH in D5W 250 ML IV SCH (02:55)
[2023-11-27] MEDS: ACETAMINOPHEN TAB 650MG DOSE (2X325MG) PO PRN (03:09)
[2023-11-27] MEDS ORDERED: GLUCAGON INJ 1MG VIAL SC PRN (04:35)
[2023-11-27] MEDS ORDERED: DEXTROSE 50% 50ML SYRINGE IV PRN (04:35)
[2023-11-27] MEDS ORDERED: GLUCOSE 4GM CHEW TABLET PO PRN (04:35)
[2023-11-27] MEDS: VANCOMYCIN HCL 1,000 MG, VIAL MATE ADAPTER 1 EACH in D5W 250 ML IV ONE ×2 (04:38→05:41)
[2023-11-27] MEDS ORDERED: IPRATROPIUM 0.5MG/ALBUTEROL 2.5MG INH SOL UD 3ML (DUONEB) NEB PRN (04:45)
[2023-11-27] MEDS: NS 1,000 ML IV SCH (04:48)
[2023-11-27] MEDS: PIPERACILLIN/TAZOBACTAM SOD 3.375 GM in D5W MINI-BAG PLUS 50 ML IV SCH (05:40)
[2023-11-27 05:59] LABS: ABG BASE EXCESS -3.5 (-2.0-2.0); ABG HCO3 20.3 MMOL/L (22.0-26.0); ABG O2 SATURATION 96.9 % (95.0-99.0); ABG PARTIAL PRESSURE CO2 32.8 mmHg (35.0-45.0); ABG PARTIAL PRESSURE O2 130.4 mmHg (75.0-100.0); ABG STANDARD HCO3 21.5 MMOL/L. (22.0-26.0); ABG TOTAL CO2 21.3 MMOL/L (22.0-29.0)
[2023-11-27] MEDS: ACETAMINOPHEN *IV* 1,000 MG in IV 1 EA IV ONE ×2 (06:55→14:48)
[2023-11-27] MEDS: DOCUSATE SODIUM 100MG CAPSULE PO SCH (08:35)
[2023-11-27] MEDS: LR 1,000 ML IV SCH (08:35)
[2023-11-27] MEDS: HEPARIN SOD (PORCINE) 5000UNITS/ML 1ML VIAL/SYRINGE SQ SCH (08:35)
[2023-11-27] MEDS ORDERED: ENOXAPARIN 40MG/0.4ML SYRINGE (J1650 PER 10MG) SC SCH (09:00)
[2023-11-27 10:41] LABS: BASO # 0.1 10^3/uL (0.0-0.2); BASO % 0.3 % (0.0-1.0); EOS # 0.2 10^3/uL (0.0-0.5); EOS % 1.2 % (0.0-3.0); HEMATOCRIT 34.1 % (42.0-52.0); HEMOGLOBIN 11.2 g/dl (13.5-17.5); LYMPH # 0.5 10^3/uL (1.5-5.0); MEAN CORPUSCULAR HEMOGLOBIN 29.7 pg (27.0-33.0); MEAN CORPUSCULAR HGB CONC 32.8 g/dl (32.0-36.5); MEAN CORPUSCULAR VOLUME 90.5 fl (80.0-96.0); MONO # 0.5 10^3/uL (0.0-0.8); MONO % 3.3 % (2.0-8.0); NEUTROPHILS # 14.5 10^3/uL (1.5-8.5); NEUTROPHILS % 91.5 % (36.0-66.0); PLATELET COUNT, AUTOMATED 234 10^3/uL (150-450); RED BLOOD COUNT 3.77 10^6/uL (4.30-6.10); WHITE BLOOD COUNT 15.9 10^3/uL (4.0-10.0)
[2023-11-27 11:19] LABS: ERYTHROCYTE SEDIMENTATION RATE 96 mm/hr (0-15)
[2023-11-27 11:26] LABS: CALCIUM LEVEL 7.6 MG/DL (8.5-10.1); CREATININE FOR GFR 4.91 MG/DL (0.70-1.30); GLOMERULAR FILTRATION RATE 13.5 (>60); POTASSIUM SERUM 3.8 MMOL/L (3.5-5.1)
[2023-11-27 11:28] LABS: PROLACTIN 11.04 NG/ML (2.1-17.7)
[2023-11-27 11:35] LABS: C REACTIVE PROTEIN QUANTITATIV 42.9 MG/DL (<1.0)
[2023-11-27] MEDS: METOPROLOL TART 25 MG TABLET PO ONE (12:54)
[2023-11-27] MEDS: METOPROLOL 5 MG/5 ML VIAL IV SCH (15:00)
[2023-11-27 15:17] LABS: PROCALCITONIN 12.17 ng/ml
[2023-11-27] MEDS: VANCOMYCIN HCL 1,000 MG, VIAL MATE ADAPTER 1 EACH in D5W 250 ML IV SCH (15:41)
[2023-11-27] MEDS: METOPROLOL TART 25 MG TABLET PO SCH (17:36)
[2023-11-27] MEDS: cefTRIAXone SOD 2 GM in D5W MINI-BAG PLUS 50 ML IV SCH (18:31)
[2023-11-28] VITALS (9 sets, daily range): BP systolic 122–165; BP diastolic 57–85; TEMP 98.8–100.9; O2SAT 93–99
[2023-11-28 06:18] LABS: ALBUMIN 2.2 G/DL (3.2-5.2); BILIRUBIN,TOTAL 0.2 MG/DL (0.3-1.2); CALCIUM LEVEL 8.5 MG/DL (8.5-10.1); CREATININE FOR GFR 4.97 MG/DL (0.70-1.30); GLOMERULAR FILTRATION RATE 13.3 (>60); MAGNESIUM LEVEL 2.1 MG/DL (1.8-2.4); POTASSIUM SERUM 4.5 MMOL/L (3.5-5.1)
[2023-11-28 06:19] LABS: HEPATITIS B SURFACE ANTIBODY NEGATIVE (POSITIVE)
[2023-11-28 06:52] LABS: HEPATITIS B CORE ANTIBODY IGM NEGATIVE (NEGATIVE); HEPATITIS C VIRUS ABY INDEX 0.02 INDEX (<0.8)
[2023-11-28] MEDS ORDERED: POTASSIUM CHLORIDE 10MEQ SR TABLET PO ONE (09:00)
[2023-11-28 09:12] LABS: PROCALCITONIN 10.07 ng/ml
[2023-11-28 09:24] LABS: BASO % 0.3 % (0.0-1.0); EOS # 0.1 10^3/uL (0.0-0.5); EOS % 0.6 % (0.0-3.0); HEMATOCRIT 36.5 % (42.0-52.0); HEMOGLOBIN 11.8 g/dl (13.5-17.5); LYMPH # 0.6 10^3/uL (1.5-5.0); LYMPH % 5.3 % (24.0-44.0); MEAN CORPUSCULAR HEMOGLOBIN 29.7 pg (27.0-33.0); MEAN CORPUSCULAR HGB CONC 32.3 g/dl (32.0-36.5); MEAN CORPUSCULAR VOLUME 91.9 fl (80.0-96.0); MONO # 0.6 10^3/uL (0.0-0.8); MONO % 5.1 % (2.0-8.0); NEUTROPHILS # 10.6 10^3/uL (1.5-8.5); NEUTROPHILS % 88.2 % (36.0-66.0); PLATELET COUNT, AUTOMATED 268 10^3/uL (150-450); RED BLOOD COUNT 3.97 10^6/uL (4.30-6.10); WHITE BLOOD COUNT 12.1 10^3/uL (4.0-10.0)
[2023-11-28 09:29] LABS: C REACTIVE PROTEIN QUANTITATIV 57.4 MG/DL (<1.0)
[2023-11-28 09:40] LABS: ERYTHROCYTE SEDIMENTATION RATE 102 mm/hr (0-15)
[2023-11-28] MEDS ORDERED: LIDOCAINE 2% 5ML JELLY UROJET TOP PRN (11:30)
[2023-11-28 12:14] LABS: PROCALCITONIN 9.94 ng/ml
[2023-11-28 12:19] LABS: C REACTIVE PROTEIN QUANTITATIV 52.3 MG/DL (<1.0)
[2023-11-28] MEDS ORDERED: CLOBETASOL PROPIONATE EMOLLIENT 0.05% CR 60 GM TOP PRN (20:05)
[2023-11-28] MEDS: LACTIC ACID 12% LOTION 225 GM BTL TOP SCH (20:58)
[2023-11-29 04:06] VITALS: BP 166/80; TEMP 99.5; O2SAT 93
[2023-11-29] MEDS: METOPROLOL SUCC *XL* 25MG TAB (TopROL *XL*) PO ONE (04:42)
[2023-11-29] MEDS: METOPROLOL 5 MG/5 ML VIAL IV STA (06:15)
[2023-11-29] MEDS ORDERED: ACETAMINOPHEN 500 MG TAB PO PRN (07:25)
[2023-11-29] MEDS ORDERED: COLCHICINE 0.6 MG TABLET PO PRN (07:25)
[2023-11-29 07:26] LABS: HEMATOCRIT 35.6 % (42.0-52.0); HEMOGLOBIN 11.9 g/dl (13.5-17.5); MEAN CORPUSCULAR HEMOGLOBIN 29.9 pg (27.0-33.0); MEAN CORPUSCULAR HGB CONC 33.4 g/dl (32.0-36.5); MEAN CORPUSCULAR VOLUME 89.4 fl (80.0-96.0); PLATELET COUNT, AUTOMATED 254 10^3/uL (150-450); RED BLOOD COUNT 3.98 10^6/uL (4.30-6.10); WHITE BLOOD COUNT 10.6 10^3/uL (4.0-10.0)
[2023-11-29 07:49] LABS: ALBUMIN 2.2 G/DL (3.2-5.2); CALCIUM LEVEL 8.4 MG/DL (8.5-10.1); CREATININE FOR GFR 3.58 MG/DL (0.70-1.30); GLOMERULAR FILTRATION RATE 19.4 (>60); PHOSPHORUS LEVEL 5.8 MG/DL (2.5-4.9); POTASSIUM SERUM 3.6 MMOL/L (3.5-5.1)
[2023-11-29 08:00] VITALS: BP 146/80; TEMP 98.6; O2SAT 94
[2023-11-29] MEDS ORDERED: PILL CUTTER 1 EACH XX ONE (08:33)
[2023-11-29] MEDS: DULoxetine 30MG CAPSULE (CYMBALTA) PO SCH (08:39)
[2023-11-29] MEDS: allopurinoL 300 MG TAB PO SCH (08:40)
[2023-11-29] MEDS: ROSUVASTATIN 10 MG TAB (CRESTOR) PO SCH (08:40)
[2023-11-29] MEDS: ASPIRIN 81MG ENTERIC TABLET PO SCH (08:40)
[2023-11-29] MEDS: CETIRIZINE (ZyrTEC) 10 MG TAB PO SCH (08:40)
[2023-11-29] MEDS: PREGABALIN 75 MG CAP(LYRICA) PO SCH (08:40)
[2023-11-29] MEDS: FENOFIBRATE 145MG TABLET (TRICOR) PO SCH (08:40)
[2023-11-29] MEDS: CYANOCOBALAMIN 500 MCG TAB PO SCH (08:40)
[2023-11-29] MEDS: METOPROLOL TART 25 MG TABLET PO SCH (08:41)
[2023-11-29] MEDS ORDERED: TORSEMIDE 100 MG TAB PO SCH (09:00)
[2023-11-29] MEDS ORDERED: POTASSIUM CHLORIDE 10MEQ SR TABLET PO SCH (09:00)
[2023-11-29] MEDS: ENOXAPARIN 150MG/ML SYRINGE SC SCH (10:11)
[2023-11-29 12:05] VITALS: BP 142/70; TEMP 96.6; O2SAT 92
[2023-11-29] MEDS: POTASSIUM CHLORIDE 10MEQ SR TABLET PO ONE (12:38)
[2023-11-29] MEDS: DIGOXIN INJ 0.5 MG/2 ML AMP IV SCH (12:38)
[2023-11-29] MEDS: METOPROLOL TART 25 MG TABLET PO ONE (12:39)
[2023-11-29 16:14] VITALS: BP 129/59; TEMP 97.1; O2SAT 94
[2023-11-29] MEDS: METOPROLOL TART 50 MG TAB PO SCH (18:25)
[2023-11-29 19:28] VITALS: BP 135/77; TEMP 99.2; O2SAT 96
[2023-11-29] MEDS: MAGNESIUM OXIDE 400MG TAB (MAG-OX) PO SCH (21:47)
[2023-11-29] MEDS: VITAMIN D 1,000 INTERNATIONAL UNITS TABLET PO SCH (21:47)
[2023-11-30 04:00] VITALS: BP 122/62; TEMP 99.1; O2SAT 97
[2023-11-30 05:47] LABS: BASO # 0.1 10^3/uL (0.0-0.2); BASO % 0.6 % (0.0-1.0); EOS # 0.3 10^3/uL (0.0-0.5); EOS % 2.9 % (0.0-3.0); HEMATOCRIT 35.1 % (42.0-52.0); HEMOGLOBIN 11.8 g/dl (13.5-17.5); LYMPH % 9.6 % (24.0-44.0); MEAN CORPUSCULAR HEMOGLOBIN 29.9 pg (27.0-33.0); MEAN CORPUSCULAR HGB CONC 33.6 g/dl (32.0-36.5); MEAN CORPUSCULAR VOLUME 89.1 fl (80.0-96.0); MONO % 9.3 % (2.0-8.0); NEUTROPHILS % 76.1 % (36.0-66.0); PLATELET COUNT, AUTOMATED 258 10^3/uL (150-450); RED BLOOD COUNT 3.94 10^6/uL (4.30-6.10); WHITE BLOOD COUNT 10.4 10^3/uL (4.0-10.0)
[2023-11-30 06:17] LABS: ALBUMIN 2.3 G/DL (3.2-5.2); CALCIUM LEVEL 8.4 MG/DL (8.5-10.1); CREATININE FOR GFR 3.01 MG/DL (0.70-1.30); GLOMERULAR FILTRATION RATE 23.7 (>60); PHOSPHORUS LEVEL 5.1 MG/DL (2.5-4.9)
[2023-11-30 08:03] VITALS: BP 160/74; TEMP 98.2; O2SAT 93
[2023-11-30 09:11] LABS: MAGNESIUM LEVEL 1.9 MG/DL (1.8-2.4)
[2023-11-30 09:12] LABS: DIGOXIN LEVEL 0.6 NG/ML (0.8-2.0)
[2023-11-30] MEDS: FUROSEMIDE 100MG/10ML VIAL IV ONE (10:05)
[2023-11-30 12:22] VITALS: BP 146/69; O2SAT 92
[2023-11-30 15:57] VITALS: BP 151/78; TEMP 97.8; O2SAT 96
[2023-11-30] MEDS: POTASSIUM CHLORIDE 10MEQ SR TABLET PO ONE (18:14)
[2023-11-30 19:35] VITALS: BP 141/85; TEMP 97.3; O2SAT 95
[2023-11-30 20:23] VITALS: BP 138/74; TEMP 97.7; O2SAT 91
[2023-12-01] MEDS ORDERED: LOPERAMIDE 2 MG CAPLET PO PRN (01:25)
[2023-12-01 02:00] VITALS: BP 149/91; TEMP 97.5; O2SAT 98
[2023-12-01 05:28] VITALS: BP 162/66; TEMP 97; O2SAT 95
[2023-12-01 06:46] LABS: HEMATOCRIT 33.5 % (42.0-52.0); MEAN CORPUSCULAR HEMOGLOBIN 29.6 pg (27.0-33.0); MEAN CORPUSCULAR HGB CONC 32.8 g/dl (32.0-36.5); MEAN CORPUSCULAR VOLUME 90.3 fl (80.0-96.0); PLATELET COUNT, AUTOMATED 282 10^3/uL (150-450); RED BLOOD COUNT 3.71 10^6/uL (4.30-6.10); WHITE BLOOD COUNT 11.2 10^3/uL (4.0-10.0)
[2023-12-01 07:06] LABS: CALCIUM LEVEL 8.6 MG/DL (8.5-10.1); CREATININE FOR GFR 2.69 MG/DL (0.70-1.30); POTASSIUM SERUM 4.3 MMOL/L (3.5-5.1)
[2023-12-01 07:16] LABS: CLOSTRIDIUM DIFFICILE PCR NEGATIVE (NEGATIVE)
[2023-12-01 07:20] LABS: ATYPICAL LYMPH 4 % (0-5); LYMPHOCYTES 12 % (16-44); MONOCYTES 9 % (0-5); NEUTROPHILS 75 % (28-66); PLATELET ESTIMATE NORMAL (NORMAL)
[2023-12-01] MEDS: APIXABAN 5 MG TAB (ELIQUIS) PO SCH (09:10)
[2023-12-01 10:00] VITALS: BP 152/64; TEMP 97; O2SAT 97
[2023-12-01] MEDS: FUROSEMIDE 100MG/10ML VIAL IV SCH (11:17)
[2023-12-01 14:00] VITALS: BP 140/64; TEMP 97.7; O2SAT 94
[2023-12-01] MEDS: LACTOBACILLUS ACIDOPHILUS CAP (BACID) PO SCH (17:51)
[2023-12-01 18:00] VITALS: BP 160/82; TEMP 97.5; O2SAT 94
[2023-12-02] VITALS: BP 150/89; TEMP 97; O2SAT 93
[2023-12-02 06:25] LABS: BASO # 0.2 10^3/uL (0.0-0.2); BASO % 1.2 % (0.0-1.0); EOS # 0.4 10^3/uL (0.0-0.5); EOS % 3.4 % (0.0-3.0); HEMATOCRIT 37.5 % (42.0-52.0); HEMOGLOBIN 12.1 g/dl (13.5-17.5); LYMPH # 1.4 10^3/uL (1.5-5.0); LYMPH % 10.9 % (24.0-44.0); MEAN CORPUSCULAR HEMOGLOBIN 29.1 pg (27.0-33.0); MEAN CORPUSCULAR HGB CONC 32.3 g/dl (32.0-36.5); MEAN CORPUSCULAR VOLUME 90.1 fl (80.0-96.0); MONO # 0.9 10^3/uL (0.0-0.8); MONO % 7.3 % (2.0-8.0); NEUTROPHILS # 8.6 10^3/uL (1.5-8.5); NEUTROPHILS % 68.3 % (36.0-66.0); PLATELET COUNT, AUTOMATED 371 10^3/uL (150-450); RED BLOOD COUNT 4.16 10^6/uL (4.30-6.10); WHITE BLOOD COUNT 12.5 10^3/uL (4.0-10.0)
[2023-12-02 06:32] VITALS: BP 150/89; TEMP 97.4; O2SAT 94
[2023-12-02 06:58] LABS: CALCIUM LEVEL 8.8 MG/DL (8.5-10.1); CREATININE FOR GFR 2.57 MG/DL (0.70-1.30); GLOMERULAR FILTRATION RATE 28.4 (>60); MAGNESIUM LEVEL 2.1 MG/DL (1.8-2.4); POTASSIUM SERUM 4.4 MMOL/L (3.5-5.1)
[2023-12-02] MEDS: FUROSEMIDE 100MG/10ML VIAL IV SCH (13:14)
[2023-12-02 13:15] VITALS: BP 146/85
[2023-12-02 14:00] VITALS: BP 145/85; TEMP 97.5; O2SAT 99
[2023-12-02 15:37] LABS: C REACTIVE PROTEIN QUANTITATIV 9.8 MG/DL (<1.0)
[2023-12-02] MEDS ORDERED: AMOX875T2 PO (18:23)
[2023-12-02] MEDS ORDERED: ELIQ5TAB PO (18:30)
[2023-12-02] MEDS ORDERED: SPIR50TA4 PO (18:33)
== END 2023-12-02 18:44 | disposition home or self-care (01) | DRG 871 ==
LOC: M ED 20:17 → M ED INP 11-27 02:44 → ENRESERV 11-27 03:26 → M MSPAV 11-27 03:57 → M ICU 11-27 05:17 → M PCU 11-28 05:18 → M MSPAV 11-30 20:20
PROVIDERS: ADMIT Internal Medicine; ATTEND General Practice
DX: A40.9 Streptococcal sepsis, unspecified (principal); N17.0 Acute kidney failure with tubular necrosis; I50.32 Chronic diastolic (congestive) heart failure; I13.11 Hypertensive heart and chronic kidney disease without heart failure, with stage 5 chronic kidney disease, or end stage renal disease; L03.116 Cellulitis of left lower limb; L03.115 Cellulitis of right lower limb; E87.1 Hypo-osmolality and hyponatremia; N18.5 Chronic kidney disease, stage 5; E10.22 Type 1 diabetes mellitus with diabetic chronic kidney disease; I25.10 Atherosclerotic heart disease of native coronary artery without angina pectoris; E78.5 Hyperlipidemia, unspecified; F17.200 Nicotine dependence, unspecified, uncomplicated; Z95.1 Presence of aortocoronary bypass graft; M10.9 Gout, unspecified; K21.9 Gastro-esophageal reflux disease without esophagitis; G47.33 Obstructive sleep apnea (adult) (pediatric); E10.40 Type 1 diabetes mellitus with diabetic neuropathy, unspecified; J45.909 Unspecified asthma, uncomplicated; E66.01 Morbid (severe) obesity due to excess calories; D64.9 Anemia, unspecified; E83.51 Hypocalcemia; I48.91 Unspecified atrial fibrillation; I16.0 Hypertensive urgency; Z88.8 Allergy status to other drugs, medicaments and biological substances; Z79.899 Other long term (current) drug therapy; Z79.82 Long term (current) use of aspirin

== ENCOUNTER → 2023-12-06 | Outpatient (CLI) | payer MEDICARE, OTHER ==
[~2023-12-06] MED LIST changes: +AMOX875T2 PO; +CLOB5CR TOP; +ELIQ5TAB PO; +METO200T15 PO; -METO200T28 PO
== END ==
LOC: M RAD 16:18
PROVIDERS: ATTEND Nurse Practitioner Family
DX: R60.0 Localized edema (principal); R59.0 Localized enlarged lymph nodes

== ENCOUNTER → 2023-12-10 | Outpatient (REF) | payer MEDICARE, OTHER ==
[~2023-12-10] MED LIST changes: -METO200T15 PO; +METO200T28 PO
[2023-12-10 13:22] LABS: BASO # 0.1 10^3/uL (0.0-0.2); BASO % 1.5 % (0.0-1.0); EOS # 0.2 10^3/uL (0.0-0.5); EOS % 2.3 % (0.0-3.0); HEMATOCRIT 34.6 % (42.0-52.0); HEMOGLOBIN 10.7 g/dl (13.5-17.5); LYMPH # 1.4 10^3/uL (1.5-5.0); MEAN CORPUSCULAR HEMOGLOBIN 29.1 pg (27.0-33.0); MEAN CORPUSCULAR HGB CONC 30.9 g/dl (32.0-36.5); MONO # 0.6 10^3/uL (0.0-0.8); MONO % 7.5 % (2.0-8.0); NEUTROPHILS # 6.2 10^3/uL (1.5-8.5); PLATELET COUNT, AUTOMATED 423 10^3/uL (150-450); RED BLOOD COUNT 3.68 10^6/uL (4.30-6.10); WHITE BLOOD COUNT 8.6 10^3/uL (4.0-10.0)
[2023-12-10 13:37] LABS: HEMOGLOBIN A1c 9.4 % (4.0-6.0)
[2023-12-10 13:42] LABS: C REACTIVE PROTEIN QUANTITATIV 5.8 MG/DL (<1.0)
[2023-12-10 13:44] LABS: CALCIUM LEVEL 8.5 MG/DL (8.5-10.1); CREATININE FOR GFR 2.27 MG/DL (0.70-1.30); GLOMERULAR FILTRATION RATE 32.8 (>60); POTASSIUM SERUM 4.2 MMOL/L (3.5-5.1)
== END ==
LOC: M LAB REF 12:33
PROVIDERS: ATTEND Nurse Practitioner Family
DX: R60.0 Localized edema (principal); N18.31 Chronic kidney disease, stage 3a; E10.9 Type 1 diabetes mellitus without complications; D72.829 Elevated white blood cell count, unspecified

== ENCOUNTER 2023-12-27 10:38 | Emergency (ER) | payer MEDICARE, OTHER ==
[~2023-12-27] VITALS: Ht 172.7 cm; Wt 145.4 kg
[~2023-12-27 10:38] MED LIST changes: +METO200T15 PO; -METO200T28 PO
[2023-12-27 14:49] LABS: BASO # 0.1 10^3/uL (0.0-0.2); BASO % 0.6 % (0.0-1.0); EOS # 0.4 10^3/uL (0.0-0.5); HEMATOCRIT 35.2 % (42.0-52.0); HEMOGLOBIN 11.5 g/dl (13.5-17.5); LYMPH # 1.3 10^3/uL (1.5-5.0); LYMPH % 10.7 % (24.0-44.0); MEAN CORPUSCULAR HEMOGLOBIN 29.1 pg (27.0-33.0); MEAN CORPUSCULAR HGB CONC 32.7 g/dl (32.0-36.5); MEAN CORPUSCULAR VOLUME 89.1 fl (80.0-96.0); MONO # 0.7 10^3/uL (0.0-0.8); MONO % 6.2 % (2.0-8.0); NEUTROPHILS # 9.3 10^3/uL (1.5-8.5); NEUTROPHILS % 78.9 % (36.0-66.0); PLATELET COUNT, AUTOMATED 305 10^3/uL (150-450); RED BLOOD COUNT 3.95 10^6/uL (4.30-6.10); WHITE BLOOD COUNT 11.8 10^3/uL (4.0-10.0)
[2023-12-27 15:16] LABS: ALBUMIN 2.4 G/DL (3.2-5.2); BILIRUBIN,DIRECT 0.1 MG/DL (<0.4); BILIRUBIN,TOTAL 0.3 MG/DL (0.3-1.2)
[2023-12-27 16:10] LABS: CALCIUM LEVEL 8.9 MG/DL (8.5-10.1); CREATININE FOR GFR 3.33 MG/DL (0.70-1.30); GLOMERULAR FILTRATION RATE 21.1 (>60); POTASSIUM SERUM 3.1 MMOL/L (3.5-5.1)
[2023-12-27] MEDS: GASTROGRAFIN SOLUTION 30ML PO SCH (17:14)
[2023-12-27 20:24] VITALS: BP 148/65; TEMP 97.7; O2SAT 94
== END 2023-12-27 20:25 | disposition home or self-care (01) ==
LOC: M ED 10:38
DX: K62.89 Other specified diseases of anus and rectum (principal); K59.00 Constipation, unspecified; I25.10 Atherosclerotic heart disease of native coronary artery without angina pectoris; E11.9 Type 2 diabetes mellitus without complications; I10 Essential (primary) hypertension; Z98.84 Bariatric surgery status; Z79.01 Long term (current) use of anticoagulants; Z79.899 Other long term (current) drug therapy
CPT/HCPCS: 36415; 74018; 74176; 80047; 80048; 80076; 81001; 83690; 85025; 87070; 87077; 87186; 99284; Q9963

== ENCOUNTER → 2023-12-30 | Outpatient (REF) | payer MEDICARE, OTHER ==
[2023-12-31 12:55] LABS: APPEARANCE, URINE CLEAR (CLEAR); BACTERIA, URINE AUTO NEGATIVE (NEGATIVE); BILIRUBIN, URINE AUTO NEGATIVE (NEGATIVE); BLOOD, URINE BLOOD 1+ (NEGATIVE); COLOR, URINE STRAW (YELLOW); GLUCOSE, URINE (UA) AUTO 3+ mg/dL (NEGATIVE); KETONE, URINE AUTO NEGATIVE (NEGATIVE); LEUKOCYTE ESTERASE, URINE AUTO NEGATIVE (NEGATIVE); NITRITE, URINE AUTO NEGATIVE (NEGATIVE); PROTEIN, URINE AUTO 1+ mg/dL (NEGATIVE); RBC, URINE AUTO 0 /HPF (0-3); SPECIFIC GRAVITY URINE AUTO 1.007 (1.002-1.035); SQUAMOUS EPITHELIAL CELL UR AU 0 /HPF (0-6); UROBILINOGEN, URINE AUTO 0.2 mg/dL (0.0-2.0); WBC, URINE AUTO 1 /HPF (0-3)
== END ==
LOC: M LAB REF 11:54
PROVIDERS: ATTEND Family Medicine Addiction Medicine
DX: R39.9 Unspecified symptoms and signs involving the genitourinary system (principal)

== ENCOUNTER → 2024-01-03 | Outpatient (REF) | payer MEDICARE, OTHER | LOC: M LAB REF 14:08 | PROVIDERS: ATTEND Nurse Practitioner Family | DX: R19.7 Diarrhea, unspecified (principal) ==

== ENCOUNTER 2024-01-13 12:27 | Outpatient (RCR) | payer MEDICARE, OTHER | END 2024-01-14 | LOC: M PT 12:27 | PROVIDERS: ATTEND Nurse Practitioner Family | DX: I89.0 Lymphedema, not elsewhere classified (principal) ==

== ENCOUNTER → 2024-01-17 | Outpatient (REF) | payer MEDICARE, OTHER ==
[~2024-01-17] MED LIST changes: +CLIN1GEL55 TOP; +DIFI200T PO; +DOXY-323 PO; +DOXY-440 PO; -DOXY-443 PO; -DOXY-444 PO; +JARD1TAB3 PO; +POTA-151 PO
== END ==
LOC: M LAB REF 16:57
PROVIDERS: ATTEND Nurse Practitioner Family
DX: N39.0 Urinary tract infection, site not specified (principal)

== ENCOUNTER 2024-01-20 02:44 | Inpatient (IN) | payer MEDICARE, OTHER ==
[~2024-01-20] VITALS: Ht 172.7 cm; Wt 138.0 kg
[2024-01-20] VITALS (16 sets, daily range): BP systolic 106–148; BP diastolic 56–69; TEMP 97.9–102.5; O2SAT 90–94
[~2024-01-20 02:44] MED LIST changes: -CLIN1GEL55 TOP; -DIFI200T PO; -JARD1TAB3 PO; -POTA-151 PO
[2024-01-20] MEDS: NS IV ONE (03:05)
[2024-01-20] MEDS: NS 1,000 ML IV ONE (03:05)
[2024-01-20] MEDS: ACETAMINOPHEN TAB 650MG DOSE (2X325MG) PO ONE (03:17)
[2024-01-20 03:27] LABS: VENOUS BASE EXCESS -5.5 (-2.0-2.0); VENOUS HCO3 19.2 MMOL/L (23.0-27.0); VENOUS O2 SATURATION 71.7 % (60.0-80.0); VENOUS PARTIAL PRESSURE CO2 34.7 mmHg (38.0-50.0); VENOUS PARTIAL PRESSURE O2 38.6 mmHg (30.0-50.0); VENOUS PH 7.361 UNITS (7.330-7.430); VENOUS STANDARD HCO3 19.5 MMOL/L; VENOUS TOTAL CO2 20.3 MMOL/L (24.0-28.0)
[2024-01-20 03:33] LABS: BASO # 0.1 10^3/uL (0.0-0.2); BASO % 0.3 % (0.0-1.0); HEMATOCRIT 33.4 % (42.0-52.0); HEMOGLOBIN 11.2 g/dl (13.5-17.5); LYMPH # 0.7 10^3/uL (1.5-5.0); LYMPH % 3.3 % (24.0-44.0); MEAN CORPUSCULAR HEMOGLOBIN 29.2 pg (27.0-33.0); MEAN CORPUSCULAR HGB CONC 33.5 g/dl (32.0-36.5); MONO # 0.8 10^3/uL (0.0-0.8); MONO % 3.7 % (2.0-8.0); NEUTROPHILS # 19.3 10^3/uL (1.5-8.5); NEUTROPHILS % 91.5 % (36.0-66.0); PLATELET COUNT, AUTOMATED 338 10^3/uL (150-450); RED BLOOD COUNT 3.84 10^6/uL (4.30-6.10); WHITE BLOOD COUNT 21.1 10^3/uL (4.0-10.0)
[2024-01-20 03:48] LABS: INR 1.51; PROTHROMBIN TIME 17.7 SECONDS (12.5-14.5)
[2024-01-20 03:58] LABS: ALBUMIN 2.6 G/DL (3.2-5.2); BILIRUBIN,TOTAL 0.4 MG/DL (0.3-1.2); CREATININE FOR GFR 3.84 MG/DL (0.70-1.30); GLOMERULAR FILTRATION RATE 17.9 (>60); POTASSIUM SERUM 3.3 MMOL/L (3.5-5.1); TOTAL PROTEIN 6.9 G/DL (5.7-8.2)
[2024-01-20] MEDS ORDERED: VANCOMYCIN HCL 1,000 MG in IV FLUID PLACE HOLDER 1 EA IV ONE (05:00)
[2024-01-20] MEDS ORDERED: DEXTROSE 50% 50ML SYRINGE IV PRN (05:15)
[2024-01-20] MEDS ORDERED: GLUCOSE 4 GM CHEW PO PRN (05:15)
[2024-01-20] MEDS ORDERED: GLUCAGON INJ 1MG VIAL SC PRN (05:15)
[2024-01-20] MEDS: PIPERACILLIN/TAZOBACTAM SOD 4.5 GM in D5W MINI-BAG PLUS 50 ML IV ONE (05:21)
[2024-01-20] MEDS: POTASSIUM CHLORIDE 10% LIQ 20MEQ/15ML UDC PO ONE (05:24)
[2024-01-20] MEDS: VANCOMYCIN HCL 1,000 MG, VIAL MATE ADAPTER 1 EACH in D5W 250 ML IV ONE ×2 (06:14→15:21)
[2024-01-20 06:38] LABS: PROCALCITONIN 13.44 ng/ml
[2024-01-20] MEDS ORDERED: MED REC CURRENTLY UNOBTAINABLE XX SCH (06:45)
[2024-01-20] MEDS ORDERED: INSULIN LISPRO (NovoLOG) PER UNIT SC SCH ×2 (07:30→21:00)
[2024-01-20 08:42] LABS: BASO # 0.1 10^3/uL (0.0-0.2); BASO % 0.3 % (0.0-1.0); HEMATOCRIT 31.2 % (42.0-52.0); HEMOGLOBIN 10.5 g/dl (13.5-17.5); LYMPH # 0.7 10^3/uL (1.5-5.0); LYMPH % 3.8 % (24.0-44.0); MEAN CORPUSCULAR HEMOGLOBIN 29.4 pg (27.0-33.0); MEAN CORPUSCULAR HGB CONC 33.7 g/dl (32.0-36.5); MEAN CORPUSCULAR VOLUME 87.4 fl (80.0-96.0); MONO # 0.8 10^3/uL (0.0-0.8); MONO % 4.3 % (2.0-8.0); NEUTROPHILS % 90.9 % (36.0-66.0); PLATELET COUNT, AUTOMATED 287 10^3/uL (150-450); RED BLOOD COUNT 3.57 10^6/uL (4.30-6.10); WHITE BLOOD COUNT 18.7 10^3/uL (4.0-10.0)
[2024-01-20 09:24] LABS: ALBUMIN 2.1 G/DL (3.2-5.2); ALKALINE PHOSPHATASE 112 U/L (46-116); ALT/SGPT 24 U/L (7.0-40); AST/SGOT 37 U/L (<34); BILIRUBIN,TOTAL 0.4 MG/DL (0.3-1.2); BLOOD UREA NITROGEN 131 MG/DL (9-23); CALCIUM LEVEL 7.4 MG/DL (8.5-10.1); CARBON DIOXIDE LEVEL 22 MMOL/L (20-31); CHLORIDE LEVEL 98 MMOL/L (98-107); CREATININE FOR GFR 3.84 MG/DL (0.70-1.30); GLOMERULAR FILTRATION RATE 17.9 (>60); GLUCOSE, FASTING 185 MG/DL (60-100); MAGNESIUM LEVEL 1.6 MG/DL (1.8-2.4); POTASSIUM SERUM 3.6 MMOL/L (3.5-5.1); SODIUM LEVEL 134 MMOL/L (136-145)
[2024-01-20] MEDS ORDERED: JARD1TAB3 PO (10:09)
[2024-01-20] MEDS ORDERED: CLIN1GEL55 TOP (10:09)
[2024-01-20] MEDS ORDERED: ELIQ5TAB PO (10:09)
[2024-01-20] MEDS ORDERED: DIFI200T PO (10:09)
[2024-01-20] MEDS ORDERED: POTA-151 PO (10:09)
[2024-01-20] MEDS ORDERED: HOME MED LIST COMPLETE! XX SCH (10:10)
[2024-01-20] MEDS ORDERED: INSULIN PUMP (PATIENT'S OWN MED) SC SCH (10:20)
[2024-01-20] MEDS ORDERED: CLOBETASOL PROP 0.05% OINT 30 GM TOP PRN (10:20)
[2024-01-20] MEDS ORDERED: VANCOMYCIN HCL 1 MG in IV FLUID PLACE HOLDER 1 EA IV SCH (11:05)
[2024-01-20] MEDS ORDERED: INSULIN PUMP (PATIENT'S OWN MED) SQ SA SCH (11:09)
[2024-01-20] MEDS: VANCOMYCIN 125MG CAPSULE PO SCH (11:32)
[2024-01-20] MEDS: MAG SULF 1GM/100ML (MAG RUN) 1 GM in IV 1 EA IV SCH (11:32)
[2024-01-20] MEDS: ASPIRIN 81MG ENTERIC TABLET PO SCH (11:32)
[2024-01-20] MEDS: APIXABAN 5 MG TAB (ELIQUIS) PO SCH (11:33)
[2024-01-20] MEDS: CETIRIZINE (ZyrTEC) 10 MG TAB PO SCH (11:33)
[2024-01-20] MEDS: OMEPRAZOLE 20MG CAP PO SCH (11:33)
[2024-01-20] MEDS: DULoxetine 30MG CAPSULE (CYMBALTA) PO SCH (11:33)
[2024-01-20] MEDS: ROSUVASTATIN 10 MG TAB (CRESTOR) PO SCH (11:34)
[2024-01-20] MEDS: FENOFIBRATE 145MG TABLET (TRICOR) PO SCH (11:34)
[2024-01-20] MEDS: PREGABALIN 75 MG CAP(LYRICA) PO SCH (11:35)
[2024-01-20] MEDS: LACTOBACILLUS ACIDOPHILUS CAP (BACID) PO SCH (12:38)
[2024-01-20] MEDS: ACETAMINOPHEN TAB 650MG DOSE (2X325MG) PO PRN (12:39)
[2024-01-20] MEDS ORDERED: PIPERACILLIN/TAZOBACTAM SOD 4.5 GM in D5W MINI-BAG PLUS 50 ML IV SCH (13:00)
[2024-01-20] MEDS ORDERED: VANCOMYCIN INTERMITTENT/PULSE DOSING BY CLINICAL PHARMACIST PER DOSING PROTOCOL XX SCH (13:20)
[2024-01-20] MEDS: ACETAMINOPHEN *IV* 500 MG in IV 1 EA IV ONE (14:16)
[2024-01-20] MEDS: FUROSEMIDE 100MG/10ML VIAL IV SCH (14:26)
[2024-01-20] MEDS: POTASSIUM CHLORIDE 10MEQ SR TABLET PO SCH (15:21)
[2024-01-20 16:49] LABS: HIV 1&2 SCREEN NEGATIVE (NEGATIVE)
[2024-01-20 17:29] LABS: CALCIUM LEVEL 7.4 MG/DL (8.5-10.1); CREATININE FOR GFR 3.59 MG/DL (0.70-1.30); GLOMERULAR FILTRATION RATE 19.3 (>60); POTASSIUM SERUM 2.9 MMOL/L (3.5-5.1)
[2024-01-20] MEDS: POTASSIUM CHLORIDE 10MEQ SR TABLET PO ONE ×2 (17:48→19:00)
[2024-01-20] MEDS: KCL 10MEQ/100ML SWI (KRUN) 10 MEQ in IV 1 EA IV SCH (17:49)
[2024-01-20] MEDS: VITAMIN D 1,000 INTERNATIONAL UNITS TABLET PO SCH (21:50)
[2024-01-20] MEDS: MAGNESIUM OXIDE 400MG TAB (MAG-OX) PO SCH (21:50)
[2024-01-21] VITALS (23 sets, daily range): BP systolic 124–156; BP diastolic 63–73; TEMP 97–99.4; O2SAT 90–96
[2024-01-21 01:04] LABS: CALCIUM LEVEL 7.5 MG/DL (8.5-10.1); CREATININE FOR GFR 3.55 MG/DL (0.70-1.30); GLOMERULAR FILTRATION RATE 19.6 (>60); POTASSIUM SERUM 4.3 MMOL/L (3.5-5.1)
[2024-01-21 08:43] LABS: BASO % 0.3 % (0.0-1.0); EOS % 0.3 % (0.0-3.0); HEMATOCRIT 32.7 % (42.0-52.0); HEMOGLOBIN 10.8 g/dl (13.5-17.5); LYMPH # 0.8 10^3/uL (1.5-5.0); LYMPH % 6.6 % (24.0-44.0); MEAN CORPUSCULAR HEMOGLOBIN 28.4 pg (27.0-33.0); MEAN CORPUSCULAR VOLUME 86.1 fl (80.0-96.0); MONO # 0.7 10^3/uL (0.0-0.8); MONO % 6.5 % (2.0-8.0); NEUTROPHILS # 9.8 10^3/uL (1.5-8.5); NEUTROPHILS % 85.6 % (36.0-66.0); PLATELET COUNT, AUTOMATED 343 10^3/uL (150-450); WHITE BLOOD COUNT 11.4 10^3/uL (4.0-10.0)
[2024-01-21 09:07] LABS: CREATININE FOR GFR 3.32 MG/DL (0.70-1.30); GLOMERULAR FILTRATION RATE 21.2 (>60); MAGNESIUM LEVEL 2.3 MG/DL (1.8-2.4); PHOSPHORUS LEVEL 8.9 MG/DL (2.5-4.9); POTASSIUM SERUM 4.4 MMOL/L (3.5-5.1)
[2024-01-21 09:40] LABS: C REACTIVE PROTEIN QUANTITATIV 42.1 MG/DL (<1.0)
[2024-01-21] MEDS: LACTIC ACID 12% LOTION 225 GM BTL EXT SCH (09:50)
[2024-01-21] MEDS ORDERED: VIAL MATE ADAPTER XX ONE (12:23)
[2024-01-21] MEDS: VANCOMYCIN HCL 750 MG, VIAL MATE ADAPTER 1 EACH in D5W 250 ML IV ONE (12:30)
[2024-01-21] MEDS: (RENVELA) SEVELAMER **CARBONate** 800 MG TAB PO SCH (18:32)
[2024-01-21] MEDS: MULTIVITAMINS/MINERALS THERAP 1 TAB PO SCH (20:17)
[2024-01-21] MEDS: METOPROLOL TART 25 MG TABLET PO SCH (20:17)
[2024-01-22] VITALS (25 sets, daily range): BP systolic 124–158; BP diastolic 60–77; TEMP 97.8–98.9; O2SAT 90–96
[2024-01-22 05:58] LABS: BASO % 0.4 % (0.0-1.0); EOS # 0.2 10^3/uL (0.0-0.5); EOS % 2.5 % (0.0-3.0); HEMATOCRIT 31.8 % (42.0-52.0); HEMOGLOBIN 10.4 g/dl (13.5-17.5); LYMPH # 0.9 10^3/uL (1.5-5.0); LYMPH % 8.9 % (24.0-44.0); MEAN CORPUSCULAR HEMOGLOBIN 28.7 pg (27.0-33.0); MEAN CORPUSCULAR HGB CONC 32.7 g/dl (32.0-36.5); MEAN CORPUSCULAR VOLUME 87.8 fl (80.0-96.0); MONO # 0.9 10^3/uL (0.0-0.8); NEUTROPHILS # 7.7 10^3/uL (1.5-8.5); NEUTROPHILS % 78.7 % (36.0-66.0); PLATELET COUNT, AUTOMATED 343 10^3/uL (150-450); RED BLOOD COUNT 3.62 10^6/uL (4.30-6.10); WHITE BLOOD COUNT 9.8 10^3/uL (4.0-10.0)
[2024-01-22 06:29] LABS: C REACTIVE PROTEIN QUANTITATIV 29.7 MG/DL (<1.0)
[2024-01-22 06:30] LABS: CALCIUM LEVEL 8.4 MG/DL (8.5-10.1); CREATININE FOR GFR 3.06 MG/DL (0.70-1.30); GLOMERULAR FILTRATION RATE 23.3 (>60); MAGNESIUM LEVEL 2.3 MG/DL (1.8-2.4); PHOSPHORUS LEVEL 7.3 MG/DL (2.5-4.9); POTASSIUM SERUM 3.8 MMOL/L (3.5-5.1)
[2024-01-22] MEDS: VANCOMYCIN HCL 1,000 MG, VIAL MATE ADAPTER 1 EACH in D5W 250 ML IV ONE (08:27)
[2024-01-22] MEDS: POTASSIUM CHLORIDE 10MEQ SR TABLET PO STA (12:54)
[2024-01-23 03:37] VITALS: BP 149/72; TEMP 98.3; O2SAT 97
[2024-01-23 06:03] LABS: BASO # 0.1 10^3/uL (0.0-0.2); BASO % 0.7 % (0.0-1.0); EOS # 0.3 10^3/uL (0.0-0.5); EOS % 3.1 % (0.0-3.0); HEMATOCRIT 33.9 % (42.0-52.0); HEMOGLOBIN 10.8 g/dl (13.5-17.5); LYMPH % 10.1 % (24.0-44.0); MEAN CORPUSCULAR HEMOGLOBIN 28.2 pg (27.0-33.0); MEAN CORPUSCULAR HGB CONC 31.9 g/dl (32.0-36.5); MEAN CORPUSCULAR VOLUME 88.5 fl (80.0-96.0); MONO # 0.8 10^3/uL (0.0-0.8); MONO % 7.6 % (2.0-8.0); NEUTROPHILS # 7.7 10^3/uL (1.5-8.5); NEUTROPHILS % 77.9 % (36.0-66.0); PLATELET COUNT, AUTOMATED 338 10^3/uL (150-450); RED BLOOD COUNT 3.83 10^6/uL (4.30-6.10); WHITE BLOOD COUNT 9.9 10^3/uL (4.0-10.0)
[2024-01-23 06:32] LABS: C REACTIVE PROTEIN QUANTITATIV 18.3 MG/DL (<1.0); VANCOMYCIN RANDOM 16.1 UG/ML
[2024-01-23 06:42] LABS: ALBUMIN 2.2 G/DL (3.2-5.2); CALCIUM LEVEL 8.4 MG/DL (8.5-10.1); CREATININE FOR GFR 2.49 MG/DL (0.70-1.30); GLOMERULAR FILTRATION RATE 29.5 (>60); MAGNESIUM LEVEL 1.9 MG/DL (1.8-2.4); POTASSIUM SERUM 3.9 MMOL/L (3.5-5.1)
[2024-01-23] MEDS: VANCOMYCIN HCL 1,000 MG, VIAL MATE ADAPTER 1 EACH in D5W 250 ML IV SCH (09:40)
[2024-01-23 09:45] VITALS: BP 157/69
[2024-01-23] MEDS: TORSEMIDE 100 MG TAB PO SCH (09:53)
[2024-01-23 12:22] VITALS: BP 166/77; TEMP 97.6; O2SAT 98
[2024-01-23] MEDS ORDERED: AMOX500C PO ×2 (15:20→15:30)
[2024-01-23] MEDS ORDERED: RISATAB3 PO ×2 (15:20→15:30)
[2024-01-23] MEDS ORDERED: RENV2TAB PO ×2 (15:20→15:30)
[2024-01-23] MEDS ORDERED: VANC1CAP6 PO ×2 (15:20→15:30)
[2024-01-23] MEDS ORDERED: ALLO300T2 PO (15:35)
[2024-01-23 15:50] VITALS: BP 146/72; TEMP 97.6; O2SAT 93
[2024-01-23] MEDS ORDERED: AMOXICILLIN 500 MG CAP PO SCH (21:00)
== END 2024-01-23 17:19 | disposition home or self-care (01) | DRG 919 ==
LOC: M ED 02:44 → M ED INP 05:02 → M PCU 08:49
PROVIDERS: ADMIT Preventive Medicine Undersea and Hyperbaric Medicine; ATTEND Preventive Medicine Undersea and Hyperbaric Medicine
PROC: B246ZZZ Ultrasonography of Right and Left Heart (ICD-10-PCS; principal; 2024-01-21)
DX: T85.72XA Infection and inflammatory reaction due to insulin pump, initial encounter (principal); A41.9 Sepsis, unspecified organism; I50.32 Chronic diastolic (congestive) heart failure; N18.4 Chronic kidney disease, stage 4 (severe); L03.115 Cellulitis of right lower limb; L03.116 Cellulitis of left lower limb; N17.9 Acute kidney failure, unspecified; I13.0 Hypertensive heart and chronic kidney disease with heart failure and stage 1 through stage 4 chronic kidney disease, or unspecified chronic kidney disease; E87.1 Hypo-osmolality and hyponatremia; I48.20 Chronic atrial fibrillation, unspecified; L03.311 Cellulitis of abdominal wall; E88.09 Other disorders of plasma-protein metabolism, not elsewhere classified; E10.51 Type 1 diabetes mellitus with diabetic peripheral angiopathy without gangrene; E10.42 Type 1 diabetes mellitus with diabetic polyneuropathy; E83.42 Hypomagnesemia; E83.51 Hypocalcemia; I73.9 Peripheral vascular disease, unspecified; I25.10 Atherosclerotic heart disease of native coronary artery without angina pectoris; M10.9 Gout, unspecified; M19.90 Unspecified osteoarthritis, unspecified site; D64.9 Anemia, unspecified; E66.01 Morbid (severe) obesity due to excess calories; G47.33 Obstructive sleep apnea (adult) (pediatric); I89.0 Lymphedema, not elsewhere classified; E10.22 Type 1 diabetes mellitus with diabetic chronic kidney disease; E78.5 Hyperlipidemia, unspecified; K21.9 Gastro-esophageal reflux disease without esophagitis; F17.210 Nicotine dependence, cigarettes, uncomplicated; M54.9 Dorsalgia, unspecified; Z95.5 Presence of coronary angioplasty implant and graft; Z79.01 Long term (current) use of anticoagulants; Z90.49 Acquired absence of other specified parts of digestive tract; Z79.82 Long term (current) use of aspirin; Z79.4 Long term (current) use of insulin; Z79.899 Other long term (current) drug therapy; Z88.8 Allergy status to other drugs, medicaments and biological substances; I25.2 Old myocardial infarction; Z98.84 Bariatric surgery status

== ENCOUNTER → 2024-01-24 | Outpatient (REF) | payer MEDICARE, OTHER ==
[~2024-01-24] MED LIST changes: +CLIN1GEL55 TOP; +DIFI200T PO; +JARD1TAB3 PO; +POTA-151 PO; +RENV2TAB PO; +RISATAB3 PO; +VANC1CAP6 PO
== END ==
LOC: M SFHCDERM 16:44
PROVIDERS: ATTEND Physician Assistant
DX: L02.92 Furuncle, unspecified (principal)

== ENCOUNTER → 2024-02-14 | Outpatient (RCR) | payer MEDICARE, OTHER | LOC: M PT 01-24 12:32 | PROVIDERS: ATTEND Nurse Practitioner Family | DX: I89.0 Lymphedema, not elsewhere classified (principal) ==

== ENCOUNTER → 2024-02-25 | Outpatient (REF) | payer MEDICARE, OTHER | LOC: M SFHCPLAZ 15:13 | PROVIDERS: ATTEND Internal Medicine Infectious Disease | DX: R19.7 Diarrhea, unspecified (principal) ==

== ENCOUNTER 2024-03-05 20:53 | Emergency (ER) | payer MEDICARE, OTHER ==
[~2024-03-05] VITALS: Ht 172.7 cm; Wt 133.6 kg
[2024-03-05 21:02] VITALS: BP 143/76; TEMP 98.9; O2SAT 99
[2024-03-05 22:08] LABS: BASO # 0.1 10^3/uL (0.0-0.2); BASO % 0.5 % (0.0-1.0); EOS # 0.4 10^3/uL (0.0-0.5); EOS % 3.2 % (0.0-3.0); HEMOGLOBIN 11.3 g/dl (13.5-17.5); LYMPH # 1.3 10^3/uL (1.5-5.0); MEAN CORPUSCULAR HEMOGLOBIN 28.2 pg (27.0-33.0); MEAN CORPUSCULAR HGB CONC 32.3 g/dl (32.0-36.5); MEAN CORPUSCULAR VOLUME 87.3 fl (80.0-96.0); MONO # 1.1 10^3/uL (0.0-0.8); MONO % 8.5 % (2.0-8.0); NEUTROPHILS # 9.8 10^3/uL (1.5-8.5); NEUTROPHILS % 77.1 % (36.0-66.0); PLATELET COUNT, AUTOMATED 373 10^3/uL (150-450); RED BLOOD COUNT 4.01 10^6/uL (4.30-6.10); WHITE BLOOD COUNT 12.7 10^3/uL (4.0-10.0)
[2024-03-05 22:13] LABS: ERYTHROCYTE SEDIMENTATION RATE 93 mm/hr (0-15)
[2024-03-05 22:29] LABS: C REACTIVE PROTEIN QUANTITATIV 7.3 MG/DL (<1.0)
[2024-03-05 22:30] LABS: CALCIUM LEVEL 7.9 MG/DL (8.5-10.1); CREATININE FOR GFR 3.66 MG/DL (0.70-1.30); GLOMERULAR FILTRATION RATE 18.9 (>60); POTASSIUM SERUM 3.8 MMOL/L (3.5-5.1)
== END 2024-03-06 00:14 | disposition left against medical advice (07) ==
LOC: M ED 20:53
DX: Z53.21 Procedure and treatment not carried out due to patient leaving prior to being seen by health care provider (principal)

== ENCOUNTER 2024-03-06 15:05 | Outpatient (CLI) | payer MEDICARE, OTHER ==
[~2024-03-06] VITALS: Ht 172.7 cm; Wt 134.0 kg
[2024-03-06 15:15] VITALS: BP 98/54; O2SAT 100
[2024-03-06] MEDS: BEZLOTOXUMAB 1,000 MG in NS 100 ML IV ONE (15:58)
[2024-03-06 17:10] VITALS: BP 138/58; O2SAT 96
== END 2024-03-06 17:10 | disposition home or self-care (01) ==
LOC: M INFU 15:05
PROVIDERS: ATTEND Internal Medicine Infectious Disease
DX: A04.72 Enterocolitis due to Clostridium difficile, not specified as recurrent (principal); Z88.8 Allergy status to other drugs, medicaments and biological substances
CPT/HCPCS: 96365; J0565

== ENCOUNTER 2024-03-09 12:35 | Outpatient (RCR) | payer MEDICARE, OTHER | END 2024-03-15 | LOC: M PT 12:35 | PROVIDERS: ATTEND Nurse Practitioner Family | DX: I89.0 Lymphedema, not elsewhere classified (principal) ==

== ENCOUNTER 2024-04-07 15:04 | Outpatient (CLI) | payer MEDICARE, OTHER ==
[2024-04-07 15:40] VITALS: BP 136/64; O2SAT 98
[2024-04-07] MEDS: FECAL MICROBIOTA, LIVE-JSLM 150ML BAG (REBYOTA) RC ONE (15:47)
== END 2024-04-07 16:15 ==
LOC: M INFU 15:04
PROVIDERS: ATTEND Internal Medicine Infectious Disease
DX: A04.71 Enterocolitis due to Clostridium difficile, recurrent (principal); Z88.8 Allergy status to other drugs, medicaments and biological substances
CPT/HCPCS: G0455; J1440

== ENCOUNTER 2024-04-08 09:49 | Outpatient (RCR) | payer MEDICARE, OTHER | END 2024-04-15 | LOC: M PT 09:49 | PROVIDERS: ATTEND Nurse Practitioner Family | DX: I89.0 Lymphedema, not elsewhere classified (principal) ==

== ENCOUNTER → 2024-05-15 | Outpatient (CLI) | payer MEDICARE, OTHER | LOC: M WUC 10:49 | PROVIDERS: ATTEND Nurse Practitioner Family | DX: S92.491A Other fracture of right great toe, initial encounter for closed fracture (principal); S92.331A Displaced fracture of third metatarsal bone, right foot, initial encounter for closed fracture; M67.8 Other specified disorders of synovium and tendon; M79.89 Other specified soft tissue disorders; Y93.9 Activity, unspecified; Y92.9 Unspecified place or not applicable ==

== ENCOUNTER → 2024-06-03 | Outpatient (REF) | payer MEDICARE, OTHER | LOC: M LAB REF 17:13 | PROVIDERS: ATTEND Podiatrist Foot & Ankle Surgery | DX: E55.9 Vitamin D deficiency, unspecified (principal) ==

== ENCOUNTER → 2024-06-08 | Outpatient (CLI) | payer MEDICARE, OTHER | LOC: M RAD 15:32 | PROVIDERS: ATTEND Nurse Practitioner Family | DX: R92.8 Other abnormal and inconclusive findings on diagnostic imaging of breast (principal) ==

== ENCOUNTER → 2024-06-11 | Outpatient (REF) | payer MEDICARE, OTHER | LOC: M SFHCDERM 12:27 | PROVIDERS: ATTEND Physician Assistant | DX: L02.91 Cutaneous abscess, unspecified (principal) ==

== ENCOUNTER → 2024-09-01 | Outpatient (REF) | payer MEDICARE, OTHER ==
[~2024-09-01] MED LIST changes: -DOXY-323 PO; +DOXY-441 PO; +GABA-1172 PO; -GABA-282 PO; -MULT200T7 PO; +MULT200T9 PO; -ROSU20TA61 PO; +ROSU20TA86 PO
== END ==
LOC: M LAB REF 17:39
PROVIDERS: ATTEND Surgery
DX: L72.0 Epidermal cyst (principal)

== ENCOUNTER → 2024-12-17 | Outpatient (REF) | payer MEDICARE, OTHER, MEDICAID ==
[2024-12-17 12:52] LABS: BASO % 0.3 % (0.0-1.0); EOS # 0.1 10^3/uL (0.0-0.5); EOS % 1.3 % (0.0-3.0); HEMATOCRIT 38.5 % (42.0-52.0); HEMOGLOBIN 12.6 g/dl (13.5-17.5); LYMPH % 9.8 % (24.0-44.0); MEAN CORPUSCULAR HEMOGLOBIN 28.2 pg (27.0-33.0); MEAN CORPUSCULAR HGB CONC 32.7 g/dl (32.0-36.5); MEAN CORPUSCULAR VOLUME 86.1 fl (80.0-96.0); MONO # 0.8 10^3/uL (0.0-0.8); MONO % 8.1 % (2.0-8.0); NEUTROPHILS # 8.2 10^3/uL (1.5-8.5); NEUTROPHILS % 79.7 % (36.0-66.0); PLATELET COUNT, AUTOMATED 252 10^3/uL (150-450); RED BLOOD COUNT 4.47 10^6/uL (4.30-6.10); WHITE BLOOD COUNT 10.3 10^3/uL (4.0-10.0)
[2024-12-17 12:59] LABS: ERYTHROCYTE SEDIMENTATION RATE 87 mm/hr (0-20)
== END ==
LOC: M LAB REF 12:07
PROVIDERS: ATTEND Nurse Practitioner Family
DX: S80.812A Abrasion, left lower leg, initial encounter (principal); W18.30XA Fall on same level, unspecified, initial encounter; Y92.009 Unspecified place in unspecified non-institutional (private) residence as the place of occurrence of the external cause

== ENCOUNTER → 2024-12-24 | Outpatient (REF) | payer MEDICARE, OTHER, MEDICAID | LOC: M LAB REF 17:37 | PROVIDERS: ATTEND Nurse Practitioner Family | DX: N18.32 Chronic kidney disease, stage 3b (principal) ==

== ENCOUNTER → 2025-01-20 | Outpatient (CLI) | payer MEDICARE, OTHER, MEDICAID | LOC: M WUC 10:27 | PROVIDERS: ATTEND Physician Assistant | DX: L97.912 Non-pressure chronic ulcer of unspecified part of right lower leg with fat layer exposed (principal) ==

== ENCOUNTER → 2025-01-22 | Outpatient (CLI) | payer MEDICARE, MEDICAID | LOC: M RAD 09:11 | PROVIDERS: ATTEND Chiropractor | DX: M47.814 Spondylosis without myelopathy or radiculopathy, thoracic region (principal) ==

== ENCOUNTER → 2025-03-23 | Outpatient (CLI) | payer MEDICARE, MEDICAID ==
[~2025-03-23] MED LIST changes: +AMMO12CR4 TOP; -AMMO12CR7 TOP; +CALC1CAP31 PO; +PROB250C PO; +SIMV80TA13 PO; +ULOR80TA PO
== END ==
LOC: M RAD 14:41
PROVIDERS: ATTEND Registered Nurse School
DX: L97.213 Non-pressure chronic ulcer of right calf with necrosis of muscle (principal)

== ENCOUNTER → 2025-04-02 | Outpatient (REF) | payer MEDICARE, MEDICAID | LOC: M SFHCWOUN 15:15 | PROVIDERS: ATTEND Physician Assistant | DX: L97.512 Non-pressure chronic ulcer of other part of right foot with fat layer exposed (principal); M86.179 Other acute osteomyelitis, unspecified ankle and foot ==

== ENCOUNTER → 2025-04-07 | Outpatient (POV) | payer MEDICARE, MEDICAID ==
[~2025-04-07] VITALS: Ht 170.2 cm; Wt 127.3 kg
[~2025-04-07] MED LIST changes: +CALC0.5C6 PO; +CLIN1LOT TOP; +DUPI300I SC; +GENT0.1C2 TOP; +SEVE800T3 PO; +VANC125C13 PO
[2025-04-07 14:20] VITALS: BP 130/70; O2SAT 98
== END ==
LOC: M IRPOV 13:58
PROVIDERS: ATTEND Radiology Diagnostic Radiology
DX: I70.235 Atherosclerosis of native arteries of right leg with ulceration of other part of foot (principal); I70.202 Unspecified atherosclerosis of native arteries of extremities, left leg; L97.519 Non-pressure chronic ulcer of other part of right foot with unspecified severity; Z79.01 Long term (current) use of anticoagulants; Z79.4 Long term (current) use of insulin; Z79.82 Long term (current) use of aspirin; Z79.899 Other long term (current) drug therapy; Z88.8 Allergy status to other drugs, medicaments and biological substances; Z95.1 Presence of aortocoronary bypass graft

== ENCOUNTER 2025-04-08 17:01 | Inpatient (IN) | payer MEDICARE, MEDICAID ==
[~2025-04-08] VITALS: Ht 172.7 cm; Wt 127.3 kg
[~2025-04-08 17:01] MED LIST changes: -CALC0.5C6 PO; -CLIN1LOT TOP; -DUPI300I SC; -GENT0.1C2 TOP; -SEVE800T3 PO; -VANC125C13 PO
[2025-04-08 18:27] LABS: BASO # 0.1 10^3/uL (0.0-0.2); BASO % 0.5 % (0.0-1.0); EOS # 0.2 10^3/uL (0.0-0.5); EOS % 1.4 % (0.0-3.0); LYMPH # 1.0 10^3/uL (1.5-5.0); LYMPH % 7.9 % (24.0-44.0); MONO # 1.2 10^3/uL (0.0-0.8); MONO % 9.2 % (2.0-8.0); NEUTROPHILS # 10.3 10^3/uL (1.5-8.5); NEUTROPHILS % 80.2 % (36.0-66.0); PLATELET COUNT, AUTOMATED 269 10^3/uL (150-450)
[2025-04-08 18:35] LABS: ERYTHROCYTE SEDIMENTATION RATE 90 mm/hr (0-20)
[2025-04-08 18:57] LABS: C REACTIVE PROTEIN QUANTITATIV 3.83 MG/DL (<1.0); CALCIUM LEVEL 9.3 MG/DL (8.5-10.1); CARBON DIOXIDE LEVEL 25.0 MMOL/L (20-31); CHLORIDE LEVEL 97.0 MMOL/L (98-107); CREATININE FOR GFR 3.0 MG/DL (0.70-1.30); GLOMERULAR FILTRATION RATE 24.5 (>56); POTASSIUM SERUM 5.1 MMOL/L (3.5-5.1); SODIUM LEVEL 137.0 MMOL/L (136-145)
[2025-04-08] MEDS ORDERED: GENT0.1C2 TOP (19:22)
[2025-04-08] MEDS ORDERED: CLIN1LOT TOP (19:22)
[2025-04-08] MEDS ORDERED: DUPI300I SC (19:22)
[2025-04-08] MEDS ORDERED: CALC0.5C6 PO (19:30)
[2025-04-08] MEDS ORDERED: SEVE800T3 PO (19:30)
[2025-04-08] MEDS ORDERED: HOME MED LIST COMPLETE! XX SCH (19:35)
[2025-04-08] MEDS: VANCOMYCIN HCL 1,750 MG, VIAL MATE ADAPTER 1 EACH in NS 500 ML IV ONE (19:39)
[2025-04-08] MEDS ORDERED: GLUCAGON INJ 1 MG VIAL SC PRN (20:30)
[2025-04-08] MEDS ORDERED: DEXTROSE 50% 50 ML SYRINGE IV PRN (20:30)
[2025-04-08] MEDS ORDERED: GLUCOSE 4 GM CHEW PO PRN (20:30)
[2025-04-08] MEDS ORDERED: VANCOMYCIN INTERMITTENT/PULSE DOSING BY CLINICAL PHARMACIST PER DOSING PROTOCOL XX SCH (20:50)
[2025-04-08] MEDS: INSULIN LISPRO (NovoLOG) PER UNIT SC SCH (21:00)
[2025-04-08] MEDS ORDERED: SEVELAMER *CARBONate* 800 MG TAB PO PRN (21:20)
[2025-04-08 22:00] LABS: INR 0.98
[2025-04-08 22:09] LABS: ALT/SGPT 26 U/L (7.0-40); AST/SGOT 21 U/L (<34); PHOSPHORUS LEVEL 6.4 MG/DL (2.5-4.9)
[2025-04-08] MEDS: CEFEPIME HCL 1 GM in DEXTROSE 5% (D5W) ADV/MINI-BAG 50 ML IV SCH (22:43)
[2025-04-08] MEDS: METOPROLOL TART 50 MG TAB PO SCH (22:43)
[2025-04-08 22:50] LABS: ESTIMATED AVERAGE GLUCOSE 200.0 MG/DL (60-110)
[2025-04-09] VITALS (11 sets, daily range): BP systolic 118–172; BP diastolic 60–90; TEMP 97–97.8; O2SAT 92–95
[2025-04-09 06:38] LABS: BASO # 0.0 10^3/uL (0.0-0.2); BASO % 0.4 % (0.0-1.0); EOS # 0.2 10^3/uL (0.0-0.5); EOS % 1.8 % (0.0-3.0); LYMPH # 0.6 10^3/uL (1.5-5.0); LYMPH % 6.5 % (24.0-44.0); MONO # 0.8 10^3/uL (0.0-0.8); MONO % 9.0 % (2.0-8.0); NEUTROPHILS # 7.4 10^3/uL (1.5-8.5); NEUTROPHILS % 81.4 % (36.0-66.0); PLATELET COUNT, AUTOMATED 245 10^3/uL (150-450)
[2025-04-09 07:12] LABS: VANCOMYCIN RANDOM 20.6 UG/ML
[2025-04-09 07:13] LABS: CALCIUM LEVEL 8.9 MG/DL (8.5-10.1); CARBON DIOXIDE LEVEL 25.0 MMOL/L (20-31); CHLORIDE LEVEL 102.0 MMOL/L (98-107); CREATININE FOR GFR 2.72 MG/DL (0.70-1.30); GLOMERULAR FILTRATION RATE 27.6 (>56); MAGNESIUM LEVEL 2.3 MG/DL (1.8-2.4); POTASSIUM SERUM 4.8 MMOL/L (3.5-5.1); SODIUM LEVEL 143.0 MMOL/L (136-145)
[2025-04-09] MEDS: INSULIN LISPRO (NovoLOG) PER UNIT SC SCH (07:30)
[2025-04-09] MEDS: SEVELAMER *CARBONate* 800 MG TAB PO SCH (08:00)
[2025-04-09] MEDS: PANTOPRAZOLE 40MG TAB PO SCH (09:00)
[2025-04-09] MEDS: LOSARTAN 50 MG TABLET PO SCH (09:43)
[2025-04-09] MEDS: TORSEMIDE 100 MG TAB PO SCH (09:44)
[2025-04-09] MEDS ORDERED: ONDANSETRON 4MG 2ML VIAL As Ordered ONE (11:10)
[2025-04-09] MEDS ORDERED: LIDOCAINE 2% 100 MG/5 ML SDV (FOR ANES.) As Ordered ONE (11:10)
[2025-04-09] MEDS ORDERED: dexAMETHasone 4 MG/ML 1 ML VIAL As Ordered ONE (11:10)
[2025-04-09] MEDS ORDERED: MIDAZOLAM INJ 2 MG/2 ML VIAL As Ordered ONE (11:11)
[2025-04-09] MEDS ORDERED: dexmedeTOMIDine (4 MCG/ML) 200 MCG/50 ML BTL As Ordered ONE (12:18)
[2025-04-09] MEDS: LIDOCAINE 1% SDV 30 ML VIAL As Ordered ONE (12:22)
[2025-04-09] MEDS ORDERED: KETOROLAC 30 MG/ML 1 ML VIAL As Ordered ONE (12:34)
[2025-04-09] MEDS ORDERED: ACETAMINOPHEN 1000MG/100ML IV BAG As Ordered ONE (12:37)
[2025-04-09] MEDS ORDERED: ONDANSETRON 4MG 2ML VIAL IV PRN (12:50)
[2025-04-09] MEDS: LR 1,000 ML IV SCH (12:50)
[2025-04-09] MEDS ORDERED: HYDROMORPHONE HCL 0.5 MG/0.5 ML SYRINGE IV PRN (12:50)
[2025-04-09] MEDS: VANCOMYCIN HCL 500 MG in DEXTROSE 5% (D5W) MINI-BAG PLU 100 ML IV ONE (16:20)
[2025-04-09 22:45] LABS: VENOUS BASE EXCESS -0.3 (-2.0-2.0); VENOUS HCO3 24.6 MMOL/L (23.0-27.0); VENOUS O2 SATURATION 98.1 % (60.0-80.0); VENOUS PARTIAL PRESSURE CO2 41.3 mmHg (38.0-50.0); VENOUS PARTIAL PRESSURE O2 173.6 mmHg (30.0-50.0); VENOUS PH 7.393 UNITS (7.330-7.430); VENOUS STANDARD HCO3 24.3 MMOL/L; VENOUS TOTAL CO2 25.9 MMOL/L (24.0-28.0)
[2025-04-09 23:18] LABS: CALCIUM LEVEL 8.5 MG/DL (8.5-10.1); CARBON DIOXIDE LEVEL 25.0 MMOL/L (20-31); CHLORIDE LEVEL 100.0 MMOL/L (98-107); CREATININE FOR GFR 2.56 MG/DL (0.70-1.30); GLOMERULAR FILTRATION RATE 29.7 (>56); POTASSIUM SERUM 4.9 MMOL/L (3.5-5.1); SODIUM LEVEL 138.0 MMOL/L (136-145)
[2025-04-10 01:22] VITALS: BP 137/75; TEMP 96.9; O2SAT 94
[2025-04-10 02:08] LABS: CALCIUM LEVEL 8.6 MG/DL (8.5-10.1); CARBON DIOXIDE LEVEL 24.0 MMOL/L (20-31); CHLORIDE LEVEL 100.0 MMOL/L (98-107); CREATININE FOR GFR 2.55 MG/DL (0.70-1.30); GLOMERULAR FILTRATION RATE 29.8 (>56); POTASSIUM SERUM 5.1 MMOL/L (3.5-5.1); SODIUM LEVEL 138.0 MMOL/L (136-145)
[2025-04-10 02:22] VITALS: BP 152/78
[2025-04-10 03:41] VITALS: BP 143/68; TEMP 96.8; O2SAT 95
[2025-04-10 06:20] VITALS: BP 139/74; TEMP 97; O2SAT 92
[2025-04-10 06:39] LABS: BASO # 0.1 10^3/uL (0.0-0.2); BASO % 0.5 % (0.0-1.0); EOS # 0.4 10^3/uL (0.0-0.5); EOS % 3.9 % (0.0-3.0); LYMPH # 0.6 10^3/uL (1.5-5.0); LYMPH % 6.2 % (24.0-44.0); MONO # 0.8 10^3/uL (0.0-0.8); MONO % 8.1 % (2.0-8.0); NEUTROPHILS # 7.7 10^3/uL (1.5-8.5); NEUTROPHILS % 80.8 % (36.0-66.0); PLATELET COUNT, AUTOMATED 258 10^3/uL (150-450)
[2025-04-10 07:18] LABS: CALCIUM LEVEL 8.9 MG/DL (8.5-10.1); CARBON DIOXIDE LEVEL 23.0 MMOL/L (20-31); CHLORIDE LEVEL 101.0 MMOL/L (98-107); CREATININE FOR GFR 2.51 MG/DL (0.70-1.30); GLOMERULAR FILTRATION RATE 30.4 (>56); MAGNESIUM LEVEL 2.2 MG/DL (1.8-2.4); POTASSIUM SERUM 5.1 MMOL/L (3.5-5.1); SODIUM LEVEL 138.0 MMOL/L (136-145)
[2025-04-10] MEDS ORDERED: ACETAMINOPHEN 500 MG TAB PO PRN (08:35)
[2025-04-10 10:36] VITALS: BP 144/76; TEMP 98.4; O2SAT 92
[2025-04-10] MEDS: VANCOMYCIN HCL 750 MG, VIAL MATE ADAPTER 1 EACH in NS 250 ML IV SCH (10:40)
[2025-04-10] MEDS: ASPIRIN 81 MG ENTERIC TABLET PO SCH (10:40)
[2025-04-10 19:17] VITALS: BP 148/71; TEMP 97.5; O2SAT 93
[2025-04-10] MEDS: HEPARIN SOD 5000 UNITS/ML 1 ML VIAL/SYRINGE SQ SCH (21:21)
[2025-04-11 03:47] VITALS: BP 141/72; TEMP 96.7; O2SAT 91
[2025-04-11 03:49] VITALS: BP 120/77; TEMP 97.6; O2SAT 96
[2025-04-11 08:25] LABS: C REACTIVE PROTEIN QUANTITATIV 6.63 MG/DL (<1.0)
[2025-04-11] MEDS: DOXYCYCLINE HYCLATE 100 MG TABLET PO SCH (09:03)
[2025-04-11 09:05] VITALS: BP 156/77
[2025-04-11 09:24] LABS: BASO # 0.1 10^3/uL (0.0-0.2); BASO % 0.7 % (0.0-1.0); EOS # 0.4 10^3/uL (0.0-0.5); EOS % 4.4 % (0.0-3.0); LYMPH # 0.9 10^3/uL (1.5-5.0); LYMPH % 9.2 % (24.0-44.0); MONO # 0.9 10^3/uL (0.0-0.8); MONO % 8.9 % (2.0-8.0); NEUTROPHILS # 7.5 10^3/uL (1.5-8.5); NEUTROPHILS % 75.6 % (36.0-66.0); PLATELET COUNT, AUTOMATED 274 10^3/uL (150-450)
[2025-04-11 09:53] LABS: VANCOMYCIN LEVEL TROUGH 17.5 UG/ML (10.0-20.0)
[2025-04-11 09:54] LABS: CALCIUM LEVEL 9.0 MG/DL (8.5-10.1); CARBON DIOXIDE LEVEL 27.0 MMOL/L (20-31); CHLORIDE LEVEL 102.0 MMOL/L (98-107); CREATININE FOR GFR 2.25 MG/DL (0.70-1.30); GLOMERULAR FILTRATION RATE 34.7 (>56); MAGNESIUM LEVEL 2.2 MG/DL (1.8-2.4); POTASSIUM SERUM 4.7 MMOL/L (3.5-5.1); SODIUM LEVEL 141.0 MMOL/L (136-145)
[2025-04-11 12:00] VITALS: BP 150/70; TEMP 95.3; O2SAT 98
[2025-04-11] MEDS ORDERED: DOXY100T PO (14:20)
[2025-04-11] MEDS ORDERED: VANC125C13 PO (14:20)
== END 2025-04-11 15:50 | disposition home or self-care (01) | DRG 617 ==
LOC: M ED 17:01 → M ED INP 20:22 → M MS4PR 04-09 04:50
PROVIDERS: ADMIT Student in an Organized Health Care Education/Training Program; ATTEND Student in an Organized Health Care Education/Training Program
PROC: 0Y6V0Z0 Detachment at Right 4th Toe, Complete, Open Approach (ICD-10-PCS; principal; 2025-04-09 12:00)
DX: E10.69 Type 1 diabetes mellitus with other specified complication (principal); M86.171 Other acute osteomyelitis, right ankle and foot; I50.32 Chronic diastolic (congestive) heart failure; I13.0 Hypertensive heart and chronic kidney disease with heart failure and stage 1 through stage 4 chronic kidney disease, or unspecified chronic kidney disease; G47.33 Obstructive sleep apnea (adult) (pediatric); I25.10 Atherosclerotic heart disease of native coronary artery without angina pectoris; Z95.1 Presence of aortocoronary bypass graft; M10.9 Gout, unspecified; M54.59 Other low back pain; N18.4 Chronic kidney disease, stage 4 (severe); E78.5 Hyperlipidemia, unspecified; K21.9 Gastro-esophageal reflux disease without esophagitis; K57.30 Diverticulosis of large intestine without perforation or abscess without bleeding; M19.90 Unspecified osteoarthritis, unspecified site; Z79.899 Other long term (current) drug therapy; Z79.82 Long term (current) use of aspirin; Z79.4 Long term (current) use of insulin; Z88.8 Allergy status to other drugs, medicaments and biological substances

== ENCOUNTER → 2025-05-05 | Outpatient (CLI) | payer MEDICARE, MEDICAID ==
[~2025-05-05] MED LIST changes: +CALC0.5C6 PO; +CLIN1LOT TOP; +DUPI300I SC; +GENT0.1C2 TOP; +SEVE800T3 PO; +VANC125C13 PO
== END ==
LOC: M RAD 14:41
PROVIDERS: ATTEND Registered Nurse School
DX: I87.2 Venous insufficiency (chronic) (peripheral) (principal); I87.333 Chronic venous hypertension (idiopathic) with ulcer and inflammation of bilateral lower extremity; L97.318 Non-pressure chronic ulcer of right ankle with other specified severity; I70.213 Atherosclerosis of native arteries of extremities with intermittent claudication, bilateral legs

== ENCOUNTER → 2025-05-21 | Outpatient (CLI) | payer MEDICARE, MEDICAID | LOC: M WUC 14:54 | PROVIDERS: ATTEND Nurse Practitioner Family | DX: M25.572 Pain in left ankle and joints of left foot (principal) ==

== ENCOUNTER → 2025-06-15 | Outpatient (REF) | payer MEDICARE, MEDICAID ==
[~2025-06-15] MED LIST changes: -COLC0.6T47 PO; +COLC0.6T53 PO; -DIPH50CA PO; +DIPH50CA31 PO
[2025-06-15 17:37] LABS: BACTERIA, URINE AUTO NEGATIVE (NEGATIVE); RBC, URINE AUTO 5 /HPF (0-3); SQUAMOUS EPITHELIAL CELL UR AU 0 /HPF (0-6); WBC, URINE AUTO 1 /HPF (0-3)
== END ==
LOC: M LAB REF 16:58
PROVIDERS: ATTEND Nurse Practitioner Family
DX: R31.9 Hematuria, unspecified (principal); N39.0 Urinary tract infection, site not specified

== ENCOUNTER → 2025-08-04 | Outpatient (CLI) | payer MEDICARE, MEDICAID | LOC: M PLAIMG 08:32 | PROVIDERS: ATTEND Nurse Practitioner Family | DX: R31.9 Hematuria, unspecified (principal); N18.4 Chronic kidney disease, stage 4 (severe); N20.0 Calculus of kidney ==